=== PATIENT | male | born 1970 | race Caucasian/White ===

== ENCOUNTER 2023-12-15 15:03 | Emergency (ER) | payer OTHER, SELFPAY ==
[2023-12-15 15:08] VITALS: BP 171/121
[2023-12-15 15:27] LABS: % Basophils 0.8 % (0-2); % Eosinophils 1.4 % (0-6); % Immature Granulocytes 0.4 % (0-0.5); % Lymphocytes 23.1 % (20.5-51.1); % Monocytes 9.2 % (1.7-9.3); % Neutrophils 65.1 % (42.2-75.2); Absolute Basophils 0.1 10^3/uL (0-0.2); Absolute Eosinophils 0.1 10^3/uL (0-0.7); Absolute Lymphocytes 1.8 10^3/uL (1.2-3.4); Absolute Monocytes 0.7 10^3/uL (0.1-0.6); Hematocrit 50.8 % (39.0-52.0); Hemoglobin 18.6 g/dL (13.0-18.0); Mean Corp Hgb Conc. 36.6 g/dL (33.0-37.0); Mean Corpuscular Hgb 29.3 pg (27.0-31.0); Mean Platelet Volume 9.8 fL (7.4-10.4); Nucleated Red Blood Cells % 0 % (-); Platelet Count 212 10^3/uL (130-400); Red Blood Cell Count 6.35 10^6/uL (4.70-6.10); Red Cell Dist. Width 13.4 % (11.5-14.5); White Blood Cell Count 7.7 10^3/uL (4.8-10.8)
[2023-12-15 15:38] LABS: ALT (SGPT) 26 U/L (0-50); AST (SGOT) 29 U/L (17-59); Albumin 4.6 g/dl (3.5-5.0); Alkaline Phosphatase 66 U/L (38-126); Blood Urea Nitrogen 13 mg/dl (9-20); Calcium 9.8 mg/dl (8.4-10.2); Carbon Dioxide 24 mmol/L (22-30); Chloride 102 mmol/L (98-107); Glucose 101 mg/dl (70-99); Potassium 4.2 mmol/L (3.5-5.1); Sodium 139 mmol/L (135-145); Total Bilirubin 1.4 mg/dl (0.2-1.3); Total Protein 7.4 g/dl (6.3-8.2); eGFR > 60.00
[2023-12-15 15:39] LABS: Lactic Acid 0.9 mmol/L (0.7-2.0)
[2023-12-15 15:49] VITALS: BMI 39.5
[2023-12-15 15:53] VITALS: BP 165/121
--- NOTE | 2023-12-15 15:54 | ED.GENMED ---
History of Present Illness
General
Chief Complaint: Abdominal Symptoms
Source: patient
Exam Limitations: none
Time Seen by Provider: 12/15/23 15:38
Nursing documentation reviewed up to this point in time: agreed with
History of Present Illness
History of Present Illness:
The patient is a 53-year-old man who was sent from the [facility] for an infected wound overlying a chronic umbilical hernia. The patient reports that he has had this hernia for many years and it never bothers him. He reports that
about a month ago, he scratched it accidentally and open the skin. The patient reports that each day he make sure to keep the wound clean and covered, however, he has noticed over the last few days that the wound looks larger and is now draining
pus. The patient reports he has not showed the hernia to any medical provider until today. The patient reports that he just lost his job a week ago and has his insurance for another 3 weeks so he wanted to get checked out. Patient was referred to
the emergency department after the [facility] was concerned about an infection. Patient denies any nausea and vomiting. He reports he is having no pain at all. He reports that hernia is very soft and is reducible when he
lies flat, especially in the morning before he eats.
Past History
Past History
ED Past Medical History: HTN (Patient reports that he was just diagnosed with high blood pressure today in the [facility] and started on lisinopril)
ED Past Surgical History: Other
Social History
Tobacco: Other
Alcohol: Other
Drug: Other
Personal: Other
Living: other
Employment: Not employed
Family History
Family History: Other
Review of Systems
Review of Systems
Allergies reviewed?: Yes
All Other Systems: ROS reviewed and negative except as documented in HPI and ROS
Constitutional: Reports no symptoms
EENT: Reports no symptoms
Respiratory: Reports no symptoms
Cardiac: Reports no symptoms
ABD/GI: Reports no symptoms
: Reports no symptoms
Musculoskeletal: Reports no symptoms
Skin: Reports other
Neurological: Reports no symptoms
Endocrine: Reports no symptoms
Hematologic/Lymphatic: Reports no symptoms
Psychiatric: Reports no symptoms
Phy Exam
Physical Exam
Physical Exam:
Physical Exam
General: no apparent distress, not acutely ill. Well and comfortable appearing
Neck: supple. no meningeal signs. normal posterior pharynx
Heart: s1/s2 regular rate and rhythm, no murmur. equal radial pulses.
Lungs: no acute respiratory distress. clear bilaterally
Abdomen: normal bowel sounds. not tender. no CVAT. Large hernia in area of umbilical area which is completely soft and nontender. Circular open skin wound overlying umbilical hernia with a small amount of exudate and erythema
Neuro: alert and oriented. no focal neurological deficits
Skin: no rash
Psychiatric: well kept. interactive and cooperative
Extremities: no edema. no calf tenderness. negative homans. good distal pulses
Course
Orders/Labs/Results
Orders:
Orders
12/15/23 15:17
Complete Blood Count/With Diff Urgent
Comprehensive Metabolic Panel Urgent
Lactic Acid Urgent
12/15/23 16:04
Iohexol [Omnipaque] See Protocol PO NOW STA
12/15/23 16:05
CT Abd/pel W Iv And Oral Contr Urgent
Comment:
Reason For Exam: umbilical hernia
12/15/23 16:19
Wound Culture [Wound/Abscess/Other Culture] Urgent
TJ Source: Abdomen
Specimen Description:
Date Specimen was Collected: 12/15/23
Time Specimen was Collected: 16:16
12/15/23 19:55
Sulfamethox./Trimethoprim Ds [Bactrim Ds 800 mg/160 mg] 1 tablet PO NOW STA
Abnormal Lab Results
12/15/23
15:17
RBC 6.35 H 10^6/uL
(4.70-6.10)
Hgb 18.6 H g/dL
(13.0-18.0)
Absolute Monos (auto) 0.7 H 10^3/uL
(0.1-0.6)
Glucose 101 H mg/dl
(70-99)
Total Bilirubin 1.4 H mg/dl
(0.2-1.3)
12/15/23 15:17
12/15/23 15:17
Vital Signs
Initial and Last Documented VS:
Initial Vital Signs
Temp Pulse Resp BP Pulse Ox
99.1 F 99 16 171/121 97
12/15/23 15:08 12/15/23 15:08 12/15/23 15:08 12/15/23 15:08 12/15/23 15:08
Last Documented Vital Signs
Temp Pulse Resp BP Pulse Ox
99.1 F 87 18 171/132 94
12/15/23 15:08 12/15/23 17:47 12/15/23 17:47 12/15/23 17:47 12/15/23 17:47
MDM/Problems Addressed
Differential Diagnosis Includes:
Infected skin wound, fat-containing hernia, bowel containing hernia
MDM/Problems Addressed:
Patient presents with subacute skin wound overlying hernia
Acute Exacerbation and/or Progression of Chronic Illness:
Patient is acutely hypertensive, however, there is no sign of CHF or stroke
*Radiology
Radiology exam reviewed: radiology read reviewed
*Pulse Oximetry
Patient hypoxic: no
*EKG
Interpreted by ED Provider?: NA
*Test Developer Interpretation
Rate: Test Developer- N/A
*Critical Care Note
Total Time (30-74mins, 75-104mins- exclusive of procedures): Not Applicable
Data Reviewed
Source: patient and other (History reviewed from [facility] that was sent via [facility] text)
Patient Management
Discussion with other providers: Other (General surgery, Dr. Nichols)
ED Attending Note
-
Portions of this chart may have been created with voice recognition software.� Occasional wrong word or��sound alike� substitutions may have occurred due to the inherent limitations of voice recognition software.
Discharge Plan
Departure
Patient Disposition: Home (Routine Discharge)
Date of Disposition: 12/15/23
Time of Disposition: 19:53
Patient with high blood pressure during this ER visit?: Yes
Condition: Good
Covid-19: Not Applicable
Discharge Problem:
Chronic wound infection of abdomen
Instructions: Wound Infection, BLOOD PRESSURE
Prescriptions:
New
sulfamethoxazole-trimethoprim [Bactrim DS] 800-160 mg tablet
1 tab PO BID Qty: 14 0RF
Referrals:
Saeed Nichols MD [Active] - (Call Dr. Nichols's office to schedule follow up for as soon as possible)
NONE,* [Family Provider] -
Interventions
Interventions:
*Risk Screen - Suicide Last Done: 12/15/23 15:50
*General Assessment Last Done: 12/15/23 15:50
*Neglect/Abuse Screening Last Done: 12/15/23 15:50
ED- Fall Risk Assessment Last Done: 12/15/23 15:53
*ED COVID-19 Vaccine History Last Done: 12/15/23 15:50
YU-Jxcqxj-Zwsvjhtvlh Assessment Last Done: 12/15/23 15:51
Discharge Date and Time
Print Language: MAURITANIAN
[2023-12-15] MEDS: OMNIPAQUE 50 ML PO (16:14)
[2023-12-15 17:47] VITALS: BP 171/132
[2023-12-15 20:04] VITALS: BP 169/126
[2023-12-15] MEDS: BACTRIM DS 800 MG/160 MG 1 TABLET PO (20:04)
== END 2023-12-15 20:07 | disposition home or self-care (01) ==
LOC: EMR 15:03
PROVIDERS: Emergency Medicine; EMERGENCY PHYSICIAN Emergency Medicine
DX: L08.9 Local infection of the skin and subcutaneous tissue, unspecified (principal); K42.9 Umbilical hernia without obstruction or gangrene; I10 Essential (primary) hypertension
CPT/HCPCS: 99284; 74177; 80053; 83605; 85025; 87070; 87205; Q9967

== ENCOUNTER 2024-05-31 16:33 | Inpatient (IN) | payer OTHER, SELFPAY ==
[2024-05-31] VITALS (44 sets, daily range): BP systolic 70–146; BP diastolic 33–75; BMI 40.4
--- NOTE | 2024-05-31 14:36 | ED.GENMED ---
History of Present Illness
General
Chief Complaint: Abdominal Symptoms
Source: patient
Time Seen by Provider: 05/31/24 14:19
History of Present Illness
History of Present Illness:
53-year-old male presents to the emergency room from family doctor's office where he was found to be tachycardic and hypotensive. Patient came to the office to have a wound on his abdomen evaluated. The patient has had a chronic area of erythema
at using on the skin overlying a very large umbilical hernia. Patient states this area is been bothering him for months because of insurance issues he has not had it adequately cared for. He was seen in the emergency room in December at which
point he had a CAT scan which showed a large umbilical hernia which contained a loop of transverse colon but no evidence of obstruction or strangulation at that time. Patient was prescribed Bactrim and discharged for outpatient follow-up. Patient
notes over the past week or so he has been feeling dizzy, lightheaded. He has had poor appetite and poor oral intake. He is aware that the wound on his abdomen is impressive but denies significant pain there. He denies any abdominal pain. He has
had some nausea vomiting but again no abdominal pain. He has had some diarrhea.
Past History
Past History
ED Past Medical History: HTN (Patient reports that he was just diagnosed with high blood pressure today in the family [facility] clinic and started on lisinopril)
ED Past Surgical History: Other
Social History
Tobacco: Other
Alcohol: Other
Drug: Other
Personal: Other
Living: other
Employment: Not employed
Family History
Family History: Other
Phy Exam
Physical Exam
Physical Exam:
General: Awake, Alert, Oriented X3. No acute distress.
Vitals: unremarkable
Head: Atraumatic
Eyes: Pupils equal, EOMI
Throat: Airway intact, no exudates
Neck: Trachea midline
Lungs: Clear and equal b/l
Heart: Regular rate, no murmurs
Abd: Soft, large pendulous abdominal hernia with the overlying skin being quite erythematous. The erythema even extends onto the normal abdominal wall. The dependent portion of the skin containing the hernia has a large area of necrosis with some
white eschar and black necrotic material. The wounds measure approximately 15 cm x 9 cm, No pulsatile mass
Neuro: Nonfocal
Skin: Warm, dry, no rash
Extremities: pulses equal b/l, no edema
Sepsis
Sepsis Screening
Sepsis Assessment: Septic Shock
Sepsis Screening: Lactate >2mmol/L, Hypotension, ARF-Creatinine >2.0, Sustained Hypotension-SBP <90,MAP<65, or SBP decrease 40mmHg or more and Vasopressor support required
Sepsis Screen
Sepsis Screen: Septic Shock
Date: 05/31/24
Time: 15:00
Course
Orders/Labs/Results
Orders:
Orders
05/31/24 14:21
EKG [Electrocardiogram (*1)] Urgent
Reason for Study: Vertigo / Dizzy
EKG- Treatment ONCE
05/31/24 14:33
Cardiac Monitoring- Treatment ONCE
0.9% Sodium Chloride 1000 ml [Nss] 4,400 ml IV NOW STA
Acetaminophen [Tylenol] 650 mg PO NOW STA
Piperacillin/Tazo 4.5 Gram [Zosyn] 4.5 gram in 100 ml IV NOW
05/31/24 14:39
Vancomycin [Vancocin] 2,000 mg 0.9% Sodium Chloride 500 ml [Nss] 500 ml IV NOW
05/31/24 14:45
Complete Blood Count/With Diff Urgent
Comprehensive Metabolic Panel Urgent
Lactic Acid Q4H
Comment: CANCEL 2nd LACTIC ACID IF 1st LACTIC ACID IS LESS THAN 2
Urinalysis Reflex To Culture Urgent
Date Specimen was Collected: 05/31/24
Time Specimen was Collected: 14:36
Urine Microscopic Reflex Cult Urgent
Blood Culture Q30M
TJ Source: Blood/Venous
Specimen Description:
Blood Culture Q30M
TJ Source: Blood/Venous
Specimen Description:
Urine Culture Urgent
TJ Source: U
Specimen Description:
Date Specimen was Collected: 05/31/24
Time Specimen was Collected: 14:36
05/31/24 15:03
Wound Culture [Wound/Abscess/Other Culture] Urgent
TJ Source: Abdomen
Specimen Description:
Date Specimen was Collected: 05/31/24
Time Specimen was Collected: 14:55
05/31/24 15:33
Iohexol [Omnipaque] See Protocol PO NOW STA
05/31/24 15:36
[place] Placement- Treatment ONCE
Reason for insertion: I&O's Critical Care
05/31/24 15:37
CT Abd/pel Without Iv Or Oral Urgent
Comment:
Reason For Exam: renal failure, lg hernia with necrotic skin overly
05/31/24 16:20
Admit/Transfer Patient As Directed
Co-Sign Provider:
Level of Care: Inpatient admission
Assign to:: ICU
Physician / Group: [facility]son
Diagnosis: cellulitis/ hernia strangulation
Reason for Hospitalization: cellulitis/ hernia strangulation
Expected length of stay greater than two midnights?: Yes
ELOS- Estimated Length of Stay in days: 2
I certify the patient meets the requirements for IP care: Yes
NORepinephrine 4 MG/250 ML [Levophed] 4 mg in 250 ml .ROUTE .STK-MED
05/31/24 16:21
PRN Pain Medication Management As Directed
May give lesser potent ordered pain med per pt: Yes
preference::
Protocol:: Medication orders for pain may be administered in a
manner that supports deferring to patient preference
when the pt is:
- Requesting an ordered lesser potent pain medication.
Least to most potent pain medications are defined
as: acetaminophen < NSAID < tramadol < opioids
(morphine, oxycodone, hydromorphone).
- Requesting a lesser dose of the same medication IF
ORDERED.
- Requesting a less intrusive route of administration
if both routes are prescribed by the provider (PO <
IV).
05/31/24 16:22
Code Status As Directed
Resuscitation Status: Full Code
05/31/24 16:30
NORepinephrine 4 MG/250 ML [Levophed] 4 mg in 250 ml IV PER PROTOCOL
Initial dose in mcg/min, then titrate:: 4
Titrate to keep:: MAP > 65 mmHg
Titrate by mcg/min:: 1-2 mcg/min
Frequency of titrations (minutes):: 5
Maximum dose in ICU in mcg/min:: 30
Maximum dose in IMU in mcg/min:: 8
Maximum dose in IVU in mcg/min:: 4
Begin to taper infusion when:: Remained at goal for 4hrs
Taper by mcg/min:: 1-2 mcg/min
Frequency of taper (minutes) if patient maintains goal:: 30
Taper to off?: Yes
If infusion off & no longer maintaining goal:: Contact Provider
05/31/24 16:55
0.9% Sodium Chloride 1000 ml [Nss] 1,000 ml IV 100 mls/hr
05/31/24 18:23
Lactic Acid Q4H
Comment: CANCEL 2nd LACTIC ACID IF 1st LACTIC ACID IS LESS THAN 2
Abnormal Lab Results
05/31/24
14:45
WBC 22.3 H 10^3/uL
(4.8-10.8)
Plt Count 125 L 10^3/uL
(130-400)
MPV 11.0 H fL
(7.4-10.4)
Abs Immat Gran (auto) 0.8 H 10^3/uL
(0-0.05)
Absolute Neuts (auto) 20.0 H 10^3/uL
(1.4-6.5)
Absolute Lymphs (auto) 0.3 L 10^3/uL
(1.2-3.4)
Absolute Monos (auto) 1.1 H 10^3/uL
(0.1-0.6)
Immature Gran % 3.5 H %
(0-0.5)
Neutrophils % 89.7 H %
(42.2-75.2)
Lymphocytes % 1.1 L %
(20.5-51.1)
Sodium 131 L mmol/L
(135-145)
Chloride 97 L mmol/L
(98-107)
Carbon Dioxide 20 L mmol/L
(22-30)
BUN 65 H mg/dl
(9-20)
Creatinine 6.7 H* mg/dL
(0.7-1.3)
Glucose 187 H mg/dl
(70-99)
Lactic Acid 3.4 H mmol/L
(0.7-2.0)
Calcium 7.4 L mg/dl
(8.4-10.2)
Total Bilirubin 2.1 H mg/dl
(0.2-1.3)
ALT 63 H U/L
(0-50)
Total Protein 4.9 L g/dl
(6.3-8.2)
Albumin 2.5 L g/dl
(3.5-5.0)
Ur Occult Blood Reflex 2+ A
(Negative)
Urine Nitrite (Reflex) Positive A
(Negative)
Urine Bilirubin 1+ A
(Negative)
Leukocyte Esterase Rfl 2+ A
(Negative)
Urine RBC 3-6 A /HPF
(0-2)
Urine WBC (Reflex) 11-15 A /HPF
(0-5)
Urine Bacteria (Reflex) Many A
(Negative)
Urine Glucose 1+ A
(Negative)
Urine Albumin (Reflex) 2+ A
(Neg - Trace)
05/31/24 14:45
05/31/24 14:45
Vital Signs
Initial and Last Documented VS:
Initial Vital Signs
Pulse Resp Pulse Ox
111 14 98
05/31/24 14:23 05/31/24 14:23 05/31/24 14:23
Last Documented Vital Signs
Temp Pulse Resp BP Pulse Ox
97.6 F 108 20 94/59 95
05/31/24 18:30 05/31/24 18:45 05/31/24 18:30 05/31/24 18:45 05/31/24 18:45
MDM/Problems Addressed
Differential Diagnosis Includes:
Sepsis from scrotal cellulitis, sepsis from pneumonia, sepsis from urinary tract infection
MDM/Problems Addressed:
Patient presents with hypotension, tachycardia. Interestingly he is not febrile. Physical exam shows a very large umbilical hernia which is pendulous. The tissue on the underside of the hernia is chronic appearing. Erythema extends his abdominal
wall. Suspicion that this is the source of infection though other sources explored. Patient's urine does have an elevated number of white blood cells though not so many that this is clearly the source of infection. CT of the abdomen shows no
ureteral obstruction or hydronephrosis. There is stranding about the kidneys bilaterally which may support the diagnosis of pyelonephritis. Patient also found to be in acute renal failure. He has had poor oral intake and does look dry so this may
certainly be prerenal in nature. A [place] was placed to carefully document I+O's. Broad-spectrum antibiotics administered. Surgical consultation obtained.
*Radiology
Radiology exam reviewed: radiology read reviewed
*Pulse Oximetry
Patient hypoxic: no
*EKG
Interpretation: abnormal
Heart Rate: 112
Rate: tachycardiac
Rhythm: sinus tachycardia
[place]: normal axis
Interval: normal interval
QRS Pattern: normal QRS
Ischemia: no ischemia
*Event Executive Interpretation
Rate: tachycardiac
Interpretation: abnormal
Heart Rate: 112
Rhythm: sinus tachycardia
*Critical Care Note
Total Time (30-74mins, 75-104mins- exclusive of procedures): Not Applicable
ED Attending Note
-
Portions of this chart may have been created with voice recognition software.� Occasional wrong word or��sound alike� substitutions may have occurred due to the inherent limitations of voice recognition software.
Discharge Plan
Departure
Patient Disposition: Admit
Date of Disposition: 05/31/24
Time of Disposition: 15:43
Presentation/result/management discussed w/ accepting MD/DO: Hospitalist
Condition: Serious
Discharge Problem:
Sepsis, Umbilical hernia, Necrotizing cellulitis
Interventions
Interventions:
*Risk Screen - Suicide Last Done: 05/31/24 14:27
*General Assessment Last Done: 05/31/24 14:27
*Neglect/Abuse Screening Last Done: 05/31/24 14:27
ED- Fall Risk Assessment Last Done: 05/31/24 14:27
*ED COVID-19 Vaccine History Last Done: 05/31/24 14:27
OM-Jmqciy-Vmufcrmryw Assessment Last Done: 05/31/24 14:27
[2024-05-31] MEDS: ZOSYN 100 IV (14:39)
[2024-05-31] MEDS: TYLENOL 650 MG PO (14:39)
[2024-05-31] MEDS: NSS 4400 ML IV (14:44)
[2024-05-31] MEDS: VANCOCIN 540 MG IV (14:48)
[2024-05-31 15:06] LABS: Hematocrit 44.1 % (39.0-52.0); Hemoglobin 15.4 g/dL (13.0-18.0); Mean Corp Hgb Conc. 34.9 g/dL (33.0-37.0); Mean Corpuscular Hgb 29.8 pg (27.0-31.0); Mean Corpuscular Volume 85.5 fL (80.0-94.0); Platelet Count 125 10^3/uL (130-400); Red Blood Cell Count 5.16 10^6/uL (4.70-6.10); Red Cell Dist. Width 13.1 % (11.5-14.5); White Blood Cell Count 22.3 10^3/uL (4.8-10.8)
[2024-05-31 15:10] LABS: Lactic Acid 3.4 mmol/L (0.7-2.0)
[2024-05-31 15:20] LABS: ALT (SGPT) 63 U/L (0-50); AST (SGOT) 31 U/L (17-59); Albumin 2.5 g/dl (3.5-5.0); Alkaline Phosphatase 59 U/L (38-126); Blood Urea Nitrogen 65 mg/dl (9-20); Calcium 7.4 mg/dl (8.4-10.2); Carbon Dioxide 20 mmol/L (22-30); Chloride 97 mmol/L (98-107); Estimated Creatinine Clearance 20 ml/min; Glucose 187 mg/dl (70-99); Potassium 3.9 mmol/L (3.5-5.1); Sodium 131 mmol/L (135-145); Total Bilirubin 2.1 mg/dl (0.2-1.3); Total Protein 4.9 g/dl (6.3-8.2); eGFR 9.24
[2024-05-31 15:33] LABS: % Basophils 0.4 % (0-2); % Eosinophils 0.4 % (0-6); % Immature Granulocytes 3.5 % (0-0.5); % Lymphocytes 1.1 % (20.5-51.1); % Monocytes 4.9 % (1.7-9.3); % Neutrophils 89.7 % (42.2-75.2); Absolute Basophils 0.1 10^3/uL (0-0.2); Absolute Eosinophils 0.1 10^3/uL (0-0.7); Absolute Immature Granulocytes 0.8 10^3/uL (0-0.05); Absolute Lymphocytes 0.3 10^3/uL (1.2-3.4); Absolute Monocytes 1.1 10^3/uL (0.1-0.6); Nucleated Red Blood Cells % 0 % (-)
[2024-05-31 16:02] LABS: Urine Albumin 2+ (Neg - Trace); Urine Bilirubin 1+ (Negative); Urine Character Clear (Clear); Urine Color Yellow; Urine Glucose 1+ (Negative); Urine Ketone Negative (Negative); Urine Leukocyte 2+ (Negative); Urine Nitrite Positive (Negative); Urine Occult Blood 2+ (Negative); Urine Specific Gravity 1.025 (<1.030); Urine Urobilinogen 1+ (Neg - 1+)
[2024-05-31 16:11] LABS: Urine Squamous Cell 0-2 /LPF (Few)
[2024-05-31 16:12] LABS: Urine Amorphous Seen
[2024-05-31 16:13] LABS: Urine Bacteria Many (Negative)
--- NOTE | 2024-05-31 16:15 | EDRN ---
hospitalist currently at the pts bedside
--- NOTE | 2024-05-31 16:27 | HPS.HSE ---
Family Physician
-
Family Physician: Yosef Foss MD, Resid
Chief Complaint
-
weakness
History of Present Illness
53-year-old male past medical history of hypertension presenting from doctor's office with tachycardia and hypotension. He went to see his primary care physician for wound on his abdomen. He has a chronic area of redness on the skin overlying a
very large umbilical hernia. This has been bothering him for months but due to insurance issues he has not been able to seek care. He went to the emergency room in December and had a CAT scan which showed large umbilical hernia which contained a
loop of transverse colon with no evidence of obstruction or triangulation at that time. He was prescribed Bactrim and discharged for outpatient follow-up. In the past week he has been having dizziness and lightheadedness. He has had poor oral
intake. He denies any pain at the site of his hernia. It is not getting bigger. He has redness and drainage of the skin in the hernia. Denies abdominal pain. He denies nausea or vomiting. He has been having loose stool but denies diarrhea or
constipation.
He does not smoke or drink alcohol.
Medical History
Past Medical History
Past Medical History: Reports Other (hypertension)
Past Surgical History: Reports None
Social History
Tobacco: Non-smoker
Alcohol: None
Drug: None
Family History
Family History: Not pertinent
Allergies / Home Medications
Allergies reflects when Allergies were last updated in [facility].
Home Medications with original date entered in [facility]
Allergy/Medication List:
Allergies
Allergy/AdvReac Type Severity Reaction Status Date / Time
No Known Allergies Allergy Unverified 12/15/23 15:07
Home Medications
lisinopril 10 mg tablet 10 mg PO DAILY 05/31/24
Review of Systems
-
History Source: Patient
A 12 point ROS was completed and negative except as noted: Yes
Constitutional: Reports No Symptoms
EENT: Reports No Symptoms
Respiratory: Reports No Symptoms
Cardiac: Reports No Symptoms
Abdomen/GI: Reports See HPI
: Reports No Symptoms
Musculoskeletal: Reports No Symptoms
Skin: Reports No Symptoms
Neurological: Reports No Symptoms
Endocrine: Reports No Symptoms
Hematologic/Lymphatic: Reports No Symptoms
Psych: Reports No Symptoms
Physical Exam
Vital Signs
Vital Signs
Temp Pulse Resp BP Pulse Ox
98.5 F 103 19 95/55 98
05/31/24 14:27 05/31/24 15:45 05/31/24 15:45 05/31/24 15:44 05/31/24 15:44
Physical Exam
General: Well Developed, Well Nourished and No Apparent Distress
HEENT: NormoCephalic, Moist mucous membranes and Atraumatic
Respiratory: Clear
Cardiac: S1/S2 and Regular Rhythm; No Murmur or Rub
GI: Soft, Non Tender, Non Distended and Normal Bowel Sounds; No Organomegaly
Rectal: Deferred by Provider
Musculoskeletal: No Clubbing, No Cyanosis and No Edema
Skin: No Rash
Neuro: Nonfocal/grossly intact
Laboratory Results
-
05/31/24 14:45
05/31/24 14:45
Laboratory Results
Lactic Acid 3.4 mmol/L (0.7-2.0) H 05/31/24 14:45
Total Bilirubin 2.1 mg/dl (0.2-1.3) H 05/31/24 14:45
AST 31 U/L (17-59) 05/31/24 14:45
ALT 63 U/L (0-50) H 05/31/24 14:45
Alkaline Phosphatase 59 U/L (38-126) 05/31/24 14:45
Data Reviewed
-
Lab Data: Labs Reviewed by me
Old Records: Reviewed
Impression/Plan
-
IMPRESSION:
PLAN:
# Sepsis (leukocytosis, hypotension, leukocytosis) possibly secondary to cellulitis overlying umbilical hernia versus/rule out strangulation of umbilical hernia
-N.p.o
-IV fluids
-Blood cultures, wound culture
-CT abdomen pelvis pending
-Zosyn/vancomycin
-Levophed likely needed
-General Surgery consulted
# Acute kidney injury likely due to hypovolemia
-IV fluids
-[place] catheter placed
Essential hypertension
-Hold lisinopril
Full code
DVT prophylaxis�heparin
N.p.o.
[2024-05-31] MEDS: LEVOPHED 250 IV ×2 (16:34→20:42)
--- NOTE | 2024-05-31 16:39 | CON.GS ---
Medical History
-
Chief Complaint: Altered mental status and not feeling well
History of Present Illness:
Patient is a 53 yo M with a PMH of morbid obesity, HTN, hyperbilirubinemia, and known umbilical hernia with chronic wound at umbilical skin who presents with altered mental status and generalized not feeling well. Mr. Posada states that he has had
a known umbilical hernia for years now. Of recent he denies any significantly worse pain or increase in size of his hernia. No significant nausea or vomiting. He is recently passed flatus to move his bowels. He has a known issue with skin
breakdown and intermittent drainage at his umbilical wound. This has been occurring for months now. He has noticed some increase redness and drainage about his wound. Unclear on if he has had any issues with dysuria. He does note increased
difficulties with passing urine. No fevers or chills. Of note, he has been noted to have hyperbilirubinemia and mild elevation in his LFTs. He does not carry a known diagnosis of cirrhosis.
Past Medical History
Past Medical History: HTN and Other (Morbid obesity, fatty liver disease with possible cirrhosis)
Past Surgical History: None
Social History
Tobacco: Non-Smoker
Alcohol: Occasional
Drug: None
Family History
Family History: Reviewed & Not Pertinent
Allergies / Home Medications
Allergy/AdvReac Type Severity Reaction Status Date / Time
No Known Allergies Allergy Unverified 12/15/23 15:07
�Medication �Instructions �Recorded �Confirmed �Type
lisinopril 10 mg tablet 10 mg PO DAILY 05/31/24 05/31/24 History
Review of Systems
-
A 10 point review of systems was completed, and was negative except as per HPI.
Physical Exam
Vital Signs
Temp Pulse Resp BP Pulse Ox
98.5 F 103 19 95/55 98
05/31/24 14:27 05/31/24 15:45 05/31/24 15:45 05/31/24 15:44 05/31/24 15:44
05/30/24 05/31/24 06/01/24
06:59 06:59 06:59
Actual Weight 146.7 kg
Body Mass Index (BMI) 40.4
Lab Results
05/31/24 14:45
05/31/24 14:45
WBC 22.3 10^3/uL (4.8-10.8) H 05/31/24 14:45
Hgb 15.4 g/dL (13.0-18.0) 05/31/24 14:45
Hct 44.1 % (39.0-52.0) 05/31/24 14:45
Plt Count 125 10^3/uL (130-400) L 05/31/24 14:45
Abs Immat Gran (auto) 0.8 10^3/uL (0-0.05) H 05/31/24 14:45
Neutrophils % 89.7 % (42.2-75.2) H 05/31/24 14:45
Physical Exam
General: Well Developed, Well Nourished, No Apparent Distress and Other (Depressed mentation)
HEENT: Normocephalic and Scleral Icterus
Respiratory: Non Labored Respirations
Cardiac: Regular Rhythm
GI: Soft, Non Tender, Non Distended, Obese and Other (Massive umbilical hernia with edema, erythema, and skin breakdown with associated necrosis, soft, partially reducible, no tenderness with palpation or exam, mild weeping drainage, no bullae or
crepitus)
Skin: Warm and Dry
Neuro: Nonfocal/Grossly Intact
Data Reviewed
-
CT Scan: Image Personally Visualized and interpreted and Report Reviewed by me
Labs: Labs Reviewed by me
Old Records: Reviewed
Assessment / Plan
-
Patient is a 53 yo M p/w sepsis
Most likely urosepsis given his markedly elevated renal function, positive UA, and degree of sepsis. Recommend admission to the ICU, aggressive hydration, trend lactate, and IV antibiotic treatment. Will need close monitoring of his electrolytes
and renal function.
Less likely that his umbilical hernia is driving his sepsis given the chronicity of presentation, partially reducible nature of his hernia, and lack of pain or changes in his overall symptoms. His umbilical hernia is quite large and does have skin
necrosis and breakdown secondary to chronic skin thinning, tension, and decreased blood flow to the tip of the hernia. This hernia will need to be addressed, timing TBD. Proceeding with operative intervention at this time exposes him to
unnecessary risks given his electrolyte abnormalities and degree of renal failure with anesthesia. Based on his increased risk for wound complications and infection as a relates to his umbilical hernia he will likely need to have a primary suture
repair. Based on his current BMI he is at increased risk for recurrence and will need counseling on importance of weight loss and monitoring this area/follow-up.
Would trend/monitor hyperbilirubinemia and LFTs. If worsens may need GI consultation. Outpatient workup for hyperbilirubinemia pending (hepatitis). Current thrombocytopenia most likely reactive given previously normal, though could represent
underlying liver disease.
-- No plans to address umbilical hernia at this time, timing TBD based on recovery from urosepsis
-- Admission to ICU
-- Aggressive hydration, trend lactate and CMP
-- Abx: Zosyn
-- Will follow
--- NOTE | 2024-05-31 17:45 | EDRN ---
this RN called the receiving nurse in IMU to give verbal report, they will call this RN back
--- NOTE | 2024-05-31 18:06 | EDRN ---
this RN notified Dr. Ledesma regarding the pt needing to go to ICU due to being on 14mcg of Levophed, this RN also notified the bead supervisor
[2024-05-31] MEDS: NSS 1000 IV ×2 (18:25→23:55)
[2024-05-31 18:45] LABS: Lactic Acid 1.7 mmol/L (0.7-2.0)
--- NOTE | 2024-05-31 20:31 | W.PN.SEPSIS ---
Sepsis
Vital Signs
Temp Pulse Resp BP Pulse Ox
97.6 F 111 20 100/71 92
05/31/24 18:30 05/31/24 20:00 05/31/24 18:30 05/31/24 19:45 05/31/24 20:00
Physical Exam
Physical Exam:
A focused exam was performed after fluid resuscitation.
Capillary Refill
Bilateral Upper Extremity:
Sinan Time: Less than 3 sec
Bilateral Lower Extremity:
Sinan Time: Less than 3 sec
Pulse Evaluation
Bilateral Radial:
Pulse Evaluation: Present
Bilateral Dorsalis Pedis:
Pulse Evaluation: Present
--- NOTE | 2024-05-31 21:00 | PTCARENOTE ---
pt arrived from ED on stretcher, able to move over into bed independently, parents at bedside, oriented to room, SHAHRAM gallardo noted with drainage, [employer] at bedside, Levo gtt infusing per MD orders, call barry in reach
[2024-05-31] MEDS: ZOSYN 50 IV (21:45)
[2024-05-31] MEDS: HEPARIN 5000 UNITS SC (23:53)
[2024-06-01] VITALS (79 sets, daily range): BP systolic 80–151; BP diastolic 46–136; BMI 38.9
--- NOTE | 2024-06-01 | PTCARENOTE ---
pt resting in bed comfortably, denies pain and SOB, weaning down on levo gtt see worklist
[2024-06-01] MEDS: CORDARONE 103 MG IV (03:03)
[2024-06-01] MEDS: CORDARONE 518 MG IV (03:47)
[2024-06-01] MEDS: ZOSYN 50 IV ×4 (03:53→21:11)
[2024-06-01 03:57] LABS: % Basophils 0.5 % (0-2); % Eosinophils 1.2 % (0-6); % Immature Granulocytes 0.8 % (0-0.5); % Lymphocytes 2.8 % (20.5-51.1); % Monocytes 4.2 % (1.7-9.3); % Neutrophils 90.5 % (42.2-75.2); Absolute Basophils 0.1 10^3/uL (0-0.2); Absolute Eosinophils 0.2 10^3/uL (0-0.7); Absolute Immature Granulocytes 0.2 10^3/uL (0-0.05); Absolute Lymphocytes 0.6 10^3/uL (1.2-3.4); Absolute Monocytes 0.8 10^3/uL (0.1-0.6); Absolute Neutrophils 17.9 10^3/uL (1.4-6.5); Hematocrit 42.5 % (39.0-52.0); Hemoglobin 15.3 g/dL (13.0-18.0); Mean Corpuscular Hgb 29.7 pg (27.0-31.0); Mean Corpuscular Volume 82.4 fL (80.0-94.0); Mean Platelet Volume 11.5 fL (7.4-10.4); Nucleated Red Blood Cells % 0 % (-); Platelet Count 118 10^3/uL (130-400); Red Blood Cell Count 5.16 10^6/uL (4.70-6.10); Red Cell Dist. Width 13.2 % (11.5-14.5); White Blood Cell Count 19.7 10^3/uL (4.8-10.8)
[2024-06-01 04:01] LABS: APTT 33.4 Sec (23.4-35.0); INR 1.39; PT 17.3 Sec (11.4-14.6)
--- NOTE | 2024-06-01 04:24 | PTCARENOTE ---
pt converted into AFIB around 229, HIMS MANAGER made aware, pt Asymptomatic, started on AMIO gtt see JUN, call barry in reach
[2024-06-01 04:26] LABS: ALT (SGPT) 55 U/L (0-50); AST (SGOT) 26 U/L (17-59); Albumin 2.3 g/dl (3.5-5.0); Alkaline Phosphatase 74 U/L (38-126); Blood Urea Nitrogen 65 mg/dl (9-20); Calcium 7.2 mg/dl (8.4-10.2); Carbon Dioxide 14 mmol/L (22-30); Chloride 106 mmol/L (98-107); Estimated Creatinine Clearance 27 ml/min; Glucose 149 mg/dl (70-99); Phosphorus 3.4 mg/dl (2.5-4.5); Potassium 3.4 mmol/L (3.5-5.1); Sodium 135 mmol/L (135-145); Total Bilirubin 1.6 mg/dl (0.2-1.3); Total Protein 4.6 g/dl (6.3-8.2); eGFR 13.45
[2024-06-01 04:35] LABS: Vancomycin Random 11.4 ug/ml
[2024-06-01] MEDS: SODIUM BICARBONATE 1150 MEQ IV ×2 (05:02→16:07)
[2024-06-01] MEDS: SODIUM BICARBONATE 50 MEQ IV (05:06)
[2024-06-01] MEDS: KCL 270 MEQ IV ×2 (06:18→18:37)
--- NOTE | 2024-06-01 07:46 | PTCARENOTE ---
pt received from previous rn- aox4, on 2LNC, afib on monitor. amio, levo, and bicarb gtts all continue as per order. all peripheral ints c/d/i and wnl. pt with no complaints at this time. educated about plan of care- verbalized understanding. all
safety precautions in place, call barry within reach, pt turns and repositions self. umbilical hernia with xeroform and pad for drainage. herron draining yellow urine.
[2024-06-01] MEDS: NEO-SYNEPHRINE 250 IV (08:54)
[2024-06-01] MEDS: HEPARIN SC (09:04)
--- NOTE | 2024-06-01 09:28 | PHA.VAN.IN ---
Addendum entered and electronically signed by Keyla Vera, [facility] 06/01/24 17:37:
Random level drawn ~4.5 hours after completion of vanc 1500mg dose = 17.4
Will provide an additional vanc 750mg IV x1 and continue with random level 06/02 AM
Addendum entered and electronically signed by Margret Phelps, [facility] 06/01/24 13:22:
Will obtain random level this evening to ensure patient maintaining levels
Original Note:
Assessment
- Assessment
Renal Function: Appears elevated from baseline (SCR 6.7 --> 4.9 from admission - only prior SCR 1.1 12/15/23)
Concomitant Antimicrobials: piperacillin/tazobactam
Plan
- Plan
Initial / Loading Dose: 2000mg - 05/31 14:48
Maintenance Regimen: dosing by level
Monitoring: random 06/02 0600
Laboratory Tests
06/01/24
03:30
Random Vancomycin 11.4
Level drawn ~12.5H after 2g loading dose
Patient unlikely to follow population PK with weight and CONSTANCE
Will re-dose today with 1500mg (~10 mg/kg)
Pharmacokinetics Vancomycin I
- -
Patient Age: 53
Patient Sex: Male
Vancomycin Day #: 1
Indication: Skin And Soft Tissue
Requesting Provider: Dr. Ledesma
Pertinent Antimicrobial Allergies:
NKDA
Height / Weight:
Height 6 ft 3 in
Actual Weight 141 kg
Pertinent Past Medical History: BMI ~39
- Vital Signs / Lab Results
Temp Pulse Resp BP Pulse Ox
97.8 F 131 22 90/66 91
06/01/24 07:44 06/01/24 06:00 06/01/24 06:00 06/01/24 06:00 06/01/24 07:44
Lab Results - Hematology
05/31/24 06/01/24
14:45 03:30
WBC 22.3 H 19.7 H
Lab Results - Chemistry
05/31/24 06/01/24
14:45 03:30
BUN 65 H 65 H
Creatinine 6.7 H* 4.9 H*
Estimated Creat Clear 20 27
Albumin 2.5 L 2.3 L
05/31/24 05/31/24
14:45 18:23
Lactic Acid 3.4 H 1.7
Lab Results - Urine
05/31/24
14:45
Urine Nitrite (Reflex) Positive A
Leukocyte Esterase Rfl 2+ A
Urine WBC (Reflex) 11-15 A
Ur Squamous Epith Cells 0-2
Urine Bacteria (Reflex) Many A
Microbiology Results
05/31/24 14:45 Blood Culture - Preliminary
Blood/Venous Positive culture in progress
Gram Stain - Preliminary
05/31/24 15:03 Gram Stain - Preliminary
Abdomen
--- NOTE | 2024-06-01 10:18 | PTCARENOTE ---
Dr. Shelton and Dr. Vallejo aware of pts heart rate- no further orders at this time. poc discussed in rounds. cards consulted. pt aware of plan of care, pt changed from levo to roxann.
[2024-06-01] MEDS: VANCOCIN 530 MG IV (10:23)
--- NOTE | 2024-06-01 10:49 | CON.CAR ---
Addendum entered and electronically signed by Rylan More MD 06/01/24 12:49:
I saw and examined the patient.
The PAEDIATRIC SURGEON's note was reviewed and I agree with the note.
Comment:
53 y/o male with umbilical hernia, obesity, and HTN who presents with septic shock and GPC bacteremia from abdominal hernia wound, requiring vasopressors. Cardiology is consulted from afib w RVR which developed at 3AM today. Patient is likely
asymptomatic from afib though difficult to tell with everything going on. On exam he is in mild distress from pain, cardiovascular exam with irregular rate and rhythm, no murmurs, lungs clear, and no lower extremity edema. For his rapid atrial
fibrillation, he has been started on IV amiodarone infusion which we should continue. We are unable to use BB's or CCB's due to hypotension requiring pressors, and no role for DCCV as I suspect afib will recur with ongoing sepsis. Heart rate goal
of less than 130. [id number] 1. No anticoagulation for now given low [id number] and possible need for upcoming surgical intervention of his hernia. Update echocardiogram tomorrow once his rates have improved. Hold antihypertensives for
sepsis. We will continue to follow along. Recommendations discussed with primary team via TT.
Original Note:
Consultation
Consultation Request
Date/Time Consultation Requested: 06/01/24 0959
Date/Time Consultation Performed: 06/01/24 1052
Requesting Provider: Dr. Shelton
Performing Provider: Christiane NORIEGA for Dr. More
Reason for Consultation: AFIB with RVR
Medical History
-
Chief Complaint: abdominal wound
History of Present Illness:
53 y/o male with umbilical hernia, obesity, and HTN who went to his PCP for an abdominal wound that became darker and pus was noted and was seen to be tachycardic and hypotensive, so was sent to ER. He also has reported dizziness, poor appetite,
hiccups, decreased urination, weakness, brain fog. He is seen to have leukocytosis, CONSTANCE with creatinine 6.7. He is s/p 6.5 L fluid. Creatinine improving. On bicarb. His blood cultures are pending, but preliminary gram positive cocci in chains. UA
abnormal, UC pending. He is getting antibiotics. BP is low in setting of septic shock and he is requiring pressor management. We are consulted for AFIB with RVR (which started around 3 AM) and IV amiodarone has been initiated. He does not feel the
afib.
Past Medical History
Past Medical History: HTN and Other (obesity, umbilical hernia)
Social History
Tobacco: Non-Smoker
Alcohol: Occasional
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
Family History
Family History: Reviewed & Not Pertinent
Allergies / Home Medications
Allergy/AdvReac Type Severity Reaction Status Date / Time
No Known Allergies Allergy Unverified 12/15/23 15:07
�Medication �Instructions �Recorded �Confirmed �Type
lisinopril 10 mg tablet 10 mg PO DAILY Blood Pressure 05/31/24 05/31/24 History
Review of Systems
-
History Source: Patient
All other systems: Negative unless noted (as above)
Constitutional: Other (weakness, poor appetite, brain fog, hiccups)
Skin: Other (wound)
Neurological: Dizzy
Physical Exam
Vital Signs
Temp Pulse Resp BP Pulse Ox
97.8 F 136 26 86/75 93
06/01/24 07:44 06/01/24 10:30 06/01/24 10:30 06/01/24 10:30 06/01/24 10:30
Lab Results
06/01/24 03:30
06/01/24 03:30
Physical Exam
General: Well Developed and No Apparent Distress
HEENT: Normocephalic and Anicteric
Respiratory: Clear and Non Labored Respirations
Cardiac: Irregular Rhythm
Musculoskeletal: No Edema
Skin: Other (wound to abdominal, large hernia)
Neuro: AO x 3
Psych: Calm
Impression / Plan
-
Septic shock:
-this diagnosis is threat to life
-on pressors (phenylephrine) and IV abx. IVF received.
-urine and blood cultures pending.
-ID consulted
-Umbilical hernia-surgery consulted and will need to be addressed, but not yet
AFIB with RVR:
-in setting of acute illness
-continue IV amiodarone, which requires intensive monitoring
-[id number] score 1 for HTN. We do not need to add AC at this time.
-TSH pending
-Echo when HR better
HTN:
-ACEI stopped for hypotension, CONSTANCE in setting of acute illness
CONSTANCE:
-significant
-improving
Data Reviewed
-
EKG: Tracing Personally Visualized and interpreted (AFIB with RVR 139 BPM)
Radiology: Report Reviewed by me (CXR: Hypoaerated lungs without consolidation.)
CT Scan: Report Reviewed by me (Redemonstration of umbilical hernia with abdominal wall defect measuring approximately 4.2 x 3.5 cm, similar to prior. The hernia now contains only fat whereas previously it contained a loop of transverse colon. There
is marked skin thickening overlying the hernia sac, new from prior. )
Medical Tests (Nuc Med, Echo etc): Other (echo ordered)
Labs: Labs Reviewed by me
--- NOTE | 2024-06-01 11:15 | W.PN.HOSP.TC ---
Today's Communication/Plan
-
see outlined plan below
Assessment / Plan
Assessment / Plan
Assessment:
Septic shock
- continue IVF. Lactate improved from 3.4 to 1.7
- continue pressors; wean as able
Acute UTI
Gram positive bacteremia
- CT: Bilateral perinephric edema, nonspecific
- ID consulted; continue on Vancomycin and Zosyn at present pending culture data
CONSTANCE, likely pre-renal from septic shock
Associated acute metabolic acidosis/lactic acidosis
- continue IVF (bicarbonate IVF)
- [place] placed for critical I/Os
New onset parox Rapid Afib
- continue IV amiodarone
- check TSH
- Echo in AM
- Cardiology consulted
Umbilical hernia
- CT: Re-demonstration of umbilical hernia with abdominal wall defect measuring approximately 4.2 x 3.5 cm, similar to prior. The hernia now contains only fat whereas previously it contained a loop of transverse colon. There is marked skin
thickening overlying the hernia sac, new from prior.
- reducible at bedside partially
- GS evaluation; higher risk for operative intervention at present. eventual intervention timing TBD
- clears started
Acute hyponatremia
Acute hypokalemia
- monitor BMP. replete K as needed
Acute hypocalcemia
- replete IV today
Morbid obesity d/t excess calories
- weight loss encouraged
Essential HTN
- holding lisinopril with CONSTANCE and shock
acute thrombocytopenia
- likely in setting of sepsis
DVT ppx: SC heparin for now
Code: Full
Total Critical Care Time 41 minutes. I was immediately available to the patient and staff. I personally examined, reviewed labs, diagnostic images/reports, interpretations, treatment plans, discussed patient care with other providers and family
or caregivers (if patient is unable to make decisions), entered orders as appropriate and documented the medical record.
Anticipated Discharge: > 48 hours
Subjective/Interval History
-
Date of Service: June 01, 2024
went into rapid Afib overnight - IV Amio started
remains on pressors, IV Abx
Objective Data
-
Labs:
Laboratory Results
06/01/24
03:30
WBC 19.7 H
Hgb 15.3
Hct 42.5
Plt Count 118 L
PT 17.3 H
INR 1.39
APTT 33.4
Sodium 135
Potassium 3.4 L
Chloride 106
Carbon Dioxide 14 L*
BUN 65 H
Creatinine 4.9 H*
Glucose 149 H
Calcium 7.2 L
Total Bilirubin 1.6 H
AST 26
ALT 55 H
Alkaline Phosphatase 74
Vital Signs:
Vital Signs
Temp Pulse Resp BP Pulse Ox
97.8 F 136 26 86/75 93
06/01/24 07:44 06/01/24 10:30 06/01/24 10:30 06/01/24 10:30 06/01/24 10:30
I&O
05/31/24 06/01/24 06/02/24
06:59 06:59 06:59
Intake Total 1372.6 / 1580.4 1064.0 / 1064.0
Output Total 1650 / 1680 380 / 380
Balance -277.4 / -99.6 684.0 / 684.0
Physical Exam
-
General: No Apparent Distress
HEENT: Normocephalic and Atraumatic
Respiratory: Negative Wheezes
Cardiac: Irregular Rhythm and Tachycardic
GI: Soft and Distended (Massive umbilical hernia with edema, erythema, and skin breakdown with associated necrosis, soft, partially reducible, no tenderness with palpation or exam, mild weeping drainage, no bullae or crepitus)
Genito-urinary: No Costovertebral Tender
Neuro: AO x 3
Hematologic / Lymphatic: No Lymphadenopathy
Psych: Calm
Data Reviewed
-
Critical Care Time (in minutes): 41
Labs: Labs Reviewed by me
--- NOTE | 2024-06-01 11:42 | CM ---
CM following re: discharger planning.
Reviewed pt' chart, met with pt.
Pt is a 53 year old male, admitted with primary dx of Cellulitis.
Pt reports he lives alone in an apartment t, no steps, has no children, has parents and they live 2.5 hours away and sister lives in [place]. 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 No DME, VN or SNF history.
PT and OT will evaluate the pt to determine a level of care at discharge.
PCP: [facility]
Pharmacy: [facility].
D/C plan: Home with anticipated no needs vs VN services if recommended by PT/OT.
CM will follow with discharge plan updates as hospitalization progresses
--- NOTE | 2024-06-01 11:43 | CON.ID ---
Consultation
-
Date/Time Consultation Requested: 06/01/2024 0914
Date/Time Consultation Performed: 06/01/2024 1116
Requesting Provider: Dr. Shelton
Performing Provider: Dr. Hernandez
Reason for Consultation: Clinical sepsis
Chief Complaint / Past History
History of Present Illness
Fortunato Posada is a 53-year-old man being evaluated at the request of Dr. Shelton regarding clinical sepsis. History is obtained from chart review, along with patient interview.
The patient presented to the emergency room on 05/31 from his doctor's office secondary to tachycardia and hypotension. He had been into see his PCP for an noted wound on his abdomen. The patient reports that he has known about his umbilical hernia
for years, and notes that occasionally there is some drainage from the inferior aspect of the hernia, associated with skin skin breakdown. Over the past several days, though, a wound has opened up again, with increased purulent drainage, prompting
a visit to his PCP. He notes he has had some fevers and chills. He notes some discomfort in the hernia area. He also notes that he has had decreased urination over the past several days.
He notes he was laid off from his job several months ago and has not had health insurance.
Past History
Additional Past Medical History:
HTN
Morbid obesity
Umbilical hernia
Fatty liver disease
Past Surgical History: None
Allergy History:
No Known Allergies Allergy (Unverified 12/15/23 15:07)
Medications Reviewed: Yes
Current Antibiotics:
Zosyn 2.25 g IV every 6 hours
Vancomycin (dosing per pharmacy)
Social History
Tobacco: Non-Smoker
Alcohol: None
Drug: None
Living: With Family
Employment: Not Employed
Family History
Family History: Not Pertinent
Review of Systems
Vital Signs
Temp Pulse Resp BP Pulse Ox
98.2 F 136 26 86/75 93
06/01/24 11:18 06/01/24 10:30 06/01/24 10:30 06/01/24 10:30 06/01/24 10:30
Physical Exam
Physical Exam
Constitutional: No Acute Distress, Comfortable, Acutely Ill, Non-toxic and Obese
Eyes: No Conjunctival Hemorrhage, Sclera Anicteric and Erythema
Oral: No Thrush and No Ulcers
Cardiovascular: Regular Rate and S1/S2; Negative S3/S4 or Murmur
Pulmonary: Clear; Negative Wheezes, Rales or Rhonchi
Gastrointestinal: Soft and Tender
Genito-Urinary: [place] and Clear Urine
Extremities: Edema; Negative Cyanosis or Erythema
Neurological: Awake and Alert
Psychological: Calm
Lab / Diagnostic Study Results
06/01/24 03:30
06/01/24 03:30
Abs Immat Gran (auto) 0.2 10^3/uL (0-0.05) H 06/01/24 03:30
Absolute Neuts (auto) 17.9 10^3/uL (1.4-6.5) H 06/01/24 03:30
Absolute Lymphs (auto) 0.6 10^3/uL (1.2-3.4) L 06/01/24 03:30
Absolute Monos (auto) 0.8 10^3/uL (0.1-0.6) H 06/01/24 03:30
Absolute Basos (auto) 0.1 10^3/uL (0-0.2) 06/01/24 03:30
Immature Gran % 0.8 % (0-0.5) H 06/01/24 03:30
Neutrophils % 90.5 % (42.2-75.2) H 06/01/24 03:30
Lymphocytes % 2.8 % (20.5-51.1) L 06/01/24 03:30
Monocytes % 4.2 % (1.7-9.3) 06/01/24 03:30
Eosinophils % 1.2 % (0-6) 06/01/24 03:30
Basophils % 0.5 % (0-2) 06/01/24 03:30
PT 17.3 Sec (11.4-14.6) H 06/01/24 03:30
INR 1.39 06/01/24 03:30
Lactic Acid 1.7 mmol/L (0.7-2.0) 05/31/24 18:23
Ur Squamous Epith Cells 0-2 /LPF (Few) 05/31/24 14:45
Microbiology Results
Micro:
05/31/24 14:45 Blood Culture - Preliminary
Blood/Venous Positive culture in progress
Gram Stain - Preliminary
05/31/24 21:04 MRSA Screen - Pending
Nose
05/31/24 15:03 Wound Culture - Pending
Abdomen Gram Stain - Preliminary
05/31/24 14:45 Urine Culture - Pending
Urine
05/31/24 14:45 Blood Culture - Pending
Blood/Venous
Imaging:
06/01/2024 CXR (portable): Low lung volumes noted. No consolidation, effusion or pneumothorax noted. No acute osseous abnormality seen.
05/31/2024 CT abdomen/pelvis without contrast: Redemonstration of umbilical hernia with an abdominal wall defect measuring approximately 4.2 x 3.5 cm. Hernia now contains only fat whereas previously it contained a loop of transverse colon. There is
marked skin thickening overlying the hernia sac, new from prior exam. There is bilateral perinephric edema which is nonspecific. Evaluation for upper tract disease is limited without contrast. Please see full dictation for additional detail.
Film personally viewed.
Assessment / Plan
Clinical sepsis
Hypotension; on 2 pressors
Leukocytosis
Bacteremia (GPC's in chains)
SSTI with dermal gangrene of inferior portion of umbilical hernia
Acute renal failure
Elevated bilirubin
-Suspect secondary to underlying sepsis
Mild transaminitis
HTN
Morbid obesity
Umbilical hernia
Fatty liver disease
Recommendations:
Agree with empiric vancomycin and Zosyn for the present.
Await further identification of currently positive blood cultures.
Will repeat blood cultures for tomorrow to assess clearance.
Wound culture currently pending; await results.
Trend white count and temperature curve.
Wean pressors as possible.
Trend creatinine and adjust antibiotics as appropriate for changing renal function.
Care Review
Plan reviewed with: Nurse
--- NOTE | 2024-06-01 11:46 | CON.INTV ---
Consultation
Consultation Request
Date/Time Consultation Requested: 05/31/2024 22:24
Date/Time Consultation Performed: 06/01/2024 08:00
Requesting Provider: Lian Mays
Performing Provider: Saeed Vallejo MD; Juan Shelton DO (Resident)
Reason for Consultation: ICU Management/Septic Shock Requiring Pressor Support
Medical History
-
History of Present Illness:
This is a 53 year old male with a past medical history of morbid obesity, hypertension (recently diagnosed in December 2023) and a chronic umbilical hernia with chronic surrounding erythema who presented to the emergency department yesterday with
altered mental status and a generally unwell feeling, after being seen by his PCP who noted that he was tachycardic and hypotensive.
With the regards to the patient's umbilical hernia patient states this area has been bothering him for months because of insurance issues he has not had it adequately cared for. He was seen in the emergency room in December at which point he had a
CAT scan which showed a large umbilical hernia which contained a loop of transverse colon but no evidence of obstruction or strangulation at that time. Patient was prescribed Bactrim and discharged for outpatient follow-up.
The patient notes that he has experiencing 'brain fog' and lightheaded dizziness for approximately 5 days prior to arrival in addition to poor oral intake without abdominal pain, nausea, or vomiting. Patient notes that yesterday, the patient felt
that these symptoms were worsening and established care with the primary care residency clinic, who noted that he was hypotensive and tachycardic and sent him to the emergency department. In the ED, the patient was noted to be septic with a WBC
of 22.3 with tachycardia and hypotension and lactate of 3.4. The patient was admitted to the intensive care unit for septic shock requiring pressor support.
After transfer to the ICU, patient developed asymptomatic new-onset atrial fibrillation at approximately (0300).
Past Medical History
Past Medical History: HTN and Other (umbilical hernia)
Past Surgical History: None
Social History
Tobacco: Non-smoker
Alcohol: Occasional
Family History
Family History: Reviewed & Not Pertinent
Allergies / Home Medications
Allergies
Allergy/AdvReac Type Severity Reaction Status Date / Time
No Known Allergies Allergy Unverified 12/15/23 15:07
Home Medications
�Medication �Instructions �Recorded �Confirmed �Last Taken �Type
lisinopril 10 mg tablet 10 mg PO DAILY Blood Pressure 05/31/24 05/31/24 05/31/24 History
Review of Systems
-
History Source: Patient
Constitutional: Fever (n), Fatigue and Chills (n)
Respiratory: Trouble Breathing (n)
Cardiac: Chest Pain (n), Diaphoresis (n), Palpitations (n) and Syncope (n)
Abdomen/GI: Abdominal Pain (n), Nausea (n), Vomiting (n) and Diarrhea (n)
: Dysuria (n), Frequency (n) and Other (decreased urine output)
Skin: Other (worsening erythema with expression of pus from area surrounding umbilical hernia)
Neuro: Dizzy
Vitals / Labs / Diagnostic Testing
Vital Signs
Temp Pulse Resp BP Pulse Ox
98.2 F 136 26 86/75 93
06/01/24 11:18 06/01/24 10:30 06/01/24 10:30 06/01/24 10:30 06/01/24 10:30
Lab Data
06/01/24 03:30
06/01/24 03:30
Laboratory Results
06/01/24
03:30
PT 17.3 H
INR 1.39
APTT 33.4
Lactate (05/31) 1445: 3.4
Lactate (05/31) 1823: 1.7
Microbiology
05/31/24 14:45 Blood/Venous Blood Culture - Preliminary
Positive culture in progress
05/31/24 14:45 Blood/Venous Gram Stain - Preliminary
05/31/24 15:03 Abdomen Gram Stain - Preliminary
Diagnostic Testing:
CT Abdomen/Pelvis w/o Contrast
1. Redemonstration of umbilical hernia with abdominal wall defect measuring approximately 4.2 x 3.5 cm, similar to prior. The hernia now contains only fat whereas previously it contained a loop of transverse colon. There is marked skin thickening
overlying the hernia sac, new from prior.
2. Bilateral perinephric edema, nonspecific. Evaluation for upper urinary tract infection limited without contrast.
CXR (Portable AP)
Low lung volumes noted. No consolidation, effusion or pneumothorax noted. No acute osseous abnormality seen.
Physical Exam
-
HEENT: Normocephalic and Anicteric
Cardiovascular: Other (Irregularly, irregular rhythm; tachycardic. No murmurs, rubs, or gallops. )
Respiratory: Clear, Wheeze (n), Rales (n), Rhonchi (n), Non-Labored Respirations and Accessory Resp Muscle Use (n)
GI: Soft (obese), Non Tender and Other (large umbilical hernia that is soft and nontender to palpation and partially reducible (limited due to size) with an area of surrounding erythema and very small focal areas of necrosis)
Neurology: Awake, Alert, Oriented and No Motor Deficits
Skin: Warm and Dry
General: Respiratory Distress (n), Comfortable, Pain (n) and Fever (n)
Assessment
-
This is a 53 year old male with a past medical history of chronic umbilical hernia, hypertension, and morbid obesity who presented on 05/31/2024 with altered mental status, hypotension, and tachycardia as evaluated by his PCP, and found to be in
septic shock with WBC 22.3, hypotension, tachycardia, and a lactate of 3.4 in the Emergency Department. The patient was admitted to the ICU for treatment of septic shock with requirement of pressors. Overnight, the patient also developed a new-onset
and asymptomatic atrial fibrillation.
IMPRESSION:
Septic Shock
Urosepsis vs. Bacterial Sepsis Secondary to Cellulitis
Lactate on admission 3.4, 1.7 on recheck 4 hours later.
Patient was started on Levophed and transitioned to arun-synephrine to take advantage of rate-lowering side effect.
IVF fluid rescuscitation with sodium bicarb drip.
Input balance of 500 mL.
Blood Culture positive for gram positive cocci in chains (identification pending)
Urine Culture negative
Wound Culture positive for Staph Aureus, Strep Pyogenes, Gram Neg Bacilli
CT shows bilateral perinephric edema, making urosepsis a potential source, however, skin shay cannot be excluded at this time.
Umbilical Hernia
- CT Abdomen/Pelvis w/o IV Contrast: Re-demonstration of umbilical hernia with abdominal wall defect measuring approximately 4.2 x 3.5 cm, similar to prior. The hernia now contains only fat whereas previously it contained a loop of transverse colon.
There is marked skin thickening overlying the hernia sac, new from prior.
- Reducible at bedside partially
- GS evaluation; higher risk for operative intervention at present. eventual intervention timing TBD
- Monitor overlying skin for worsening/improvement in erythema/necrosis
Acute Kidney Injury
- Likely prerenal in the setting of septic shock.
- Current fluid resuscitation with sodium bicarbonate
- [place] catheter placed for critical I/Os
- Improvement in Cr s/p IVF resuscitation
New-Onset Paroxysmal Asymptomatic Atrial Fibrillation
- Likely secondary to the patient's acute condition
- Patient being followed by Cardiology
- Currrently on Amioderone drip
- Rhythm this AM, Afib with RVR with rate around 130-140
Acute Hypokalemia
3.4 this AM
Essential HTN
- Currently holding lisinopril due to prerenal CONSTANCE and shock
Acute Thrombocytopenia
- Likely secondary to sepsis
PLAN:
Neuro:
- RASS goal 0-1; patient appears comfortable without pain interventions.
Cardiovascular:
- Continue Amioderone infusion and intensive cardiac monitoring; goal rate < 130.
- No anticoagulation indicated with [id number] VASc = 1.
- Continue to hold lisinopril (home med) in the setting of the patient's hypotension and prerenal CONSTANCE.
- Continue pressor support with Arun-synephrine (used in lieu of Levophed) with MAP goal > 65.
- Follow up TSH.
- Cardiology to schedule ECHO once patient is more stable.
Respiratory;
- Benign respiratory examination, on 2L O2, wean as tolerated.
GI
- Patient being followed by surgery.
- Advance diet to clears
- Continue to trend liver enzymes
Renal
- Continue to monitor daily creatinine
- Monitor daily weights, I/Os
- Hold nephrotoxic medications
Infectious Disease
- Continue to monitor blood culture and sensitivities, urine culture and sensitivities, wound culture and sensitivities.
- Patient being followed by Infectious disease.
- Vancomycin to cover possible skin source of sepsis, Zosyn to cover possible genitourinary source; narrow once the above become available.
Heme/Onc
- Heparin 5,000 U SQ q8h
Full Code/Clears/Heparin
Data Reviewed
-
EKG: Report reviewed by me
Radiology: Image personally visualized and interpreted and Report reviewed by me
CT Scan: Report reviewed by me
Labs: Labs reviewed by me and Discussed with Patient
--- NOTE | 2024-06-01 11:55 | PTCARENOTE ---
pt started on clear liquid diet, assessment unchanged, ongoing discussion of care with mds/team.
[2024-06-01] MEDS: HEPARIN 5000 UNITS SC ×2 (12:23→21:11)
[2024-06-01] MEDS: CARDIZEM 5 MG IV (12:57)
--- NOTE | 2024-06-01 13:09 | W.PN.GS2 ---
Today's Communication / Plan
-
CLD
Wean pressors
F/u Cx
Assessment / Plan
-
53M with septic shock with presumed urinary source, also chronic skin breakdown at umbilical hernia with assoc cellulitis
AF, switched from levo to roxann for tachycardia, currently 20mcg roxann
WBC 22K --> 20K
CONSTANCE noted
UA with nitrites
UCx pending
BCx with GPC chains
CT A/P with umbilical hernia containing fat, chronic skin changes also noted
Plan:
Cont IV abx per ID
F/u Cx
Wean pressors as sera
Maintain herron for I/Os
Local wound care to umbilical skin with xeroform
CLD
DVT ppx
D/w patient and parents. They live closer to [facility] and prefer for him to get hernia addressed there where parents can provide support. I advised them that presently we are not planning surgery for the hernia. Over the next 24-48 hours the source of
sepsis should be clearer and if urinary source confirmed it may be reasonable to defer hernia surgery for this admission.
Will follow
Subjective Data
-
Date of Service: June 01, 2024
AF, on pressors, denies abd pain, denies n/v
Objective Data
-
Intake and Output
05/31/24 06/01/24 06/02/24
06:59 06:59 06:59
Intake Total 1372.6 / 1580.4 1682.1 / 1682.1
Output Total 1650 / 1680 900 / 900
Balance -277.4 / -99.6 782.1 / 782.1
Intake:
IV fluids (Total) 1272.6 / 1413.4 895.1 / 895.1
AMIO 99.9 / 133.2 150.1 / 150.1
LEVO 172.7 / 180.2 15.0 / 15.0
Nss 1,000 ml @ 100 mls/hr IV . 800 / 800
Q10H SERGIO Rx#:[id number]
Sterile Water For Injection 200 / 300 700 / 700
1000 ml 1,000 ml @ 100 mls/hr
IV .[id number] SERGIO with Sodium
Bicarbonate 150 Meq Rx#:
[id number]
roxann 30 / 30
IV piggybacks 100 / 167 787 / 787
Output:
Urine, [place] 1650 / 1680 900 / 900
Vital Signs
Temp Pulse Resp BP Pulse Ox
98.2 F 129 22 100/74 93
06/01/24 11:18 06/01/24 11:45 06/01/24 11:45 06/01/24 11:45 06/01/24 11:45
Lab Results
06/01/24 03:30
06/01/24 03:30
Calcium 7.2 mg/dl (8.4-10.2) L 06/01/24 03:30
Phosphorus 3.4 mg/dl (2.5-4.5) 06/01/24 03:30
Magnesium 2.0 mg/dl (1.6-2.3) 06/01/24 03:30
Total Bilirubin 1.6 mg/dl (0.2-1.3) H 06/01/24 03:30
AST 26 U/L (17-59) 06/01/24 03:30
ALT 55 U/L (0-50) H 06/01/24 03:30
Alkaline Phosphatase 74 U/L (38-126) 06/01/24 03:30
Total Protein 4.6 g/dl (6.3-8.2) L 06/01/24 03:30
Albumin 2.3 g/dl (3.5-5.0) L 06/01/24 03:30
Physical Exam
-
Gen: NAD
Abd: unchanged from yesterday, Soft, Non Tender, Non Distended, Obese and Other (Massive umbilical hernia with edema, erythema, and skin breakdown with associated necrosis, soft, partially reducible, no tenderness with palpation or exam, mild
weeping drainage, no bullae or crepitus)
Patient has a herron catheter: Yes
Patient has a central line: No
--- NOTE | 2024-06-01 13:47 | WOUNDNOTE ---
[facility] RN note: Patient admitted with urosepsis, open umbilical hernia wound
See H&P for complete history.
PMH: HTN, fatty liver disease, morbid obesity,
Wound Location and type/assessment: Patient admitted with open hernia wound. Per Physician note, umbilical wound is chronic and will be addressed after sepsis resolved. Surgery following. The wound has open, ulcerated areas with soft brown and
yellow slough (30%) and ecchymotic/purple areas (70%). Moderate drainage note, no odor. Patient is a poor historian of events regarding wound. Heels and sacrum intact.
Appetite: On clear diet
Pressure redistribution devices in place: Versa Care Air, patient turns self in bed, heels off-loaded with pillows under calves
Plan: Hernia wound gently cleaned with saline, Xeroform applied and hernia wrapped gently with white absorbant pad.No-sting barrier and adhesive foam applied to heels. Will confirm orders with hospitalist and updated RNAdriana.
Updated care plan and will follow as needed. Will continue to follow peripherally.
Note to case management of equipment requested for discharge:
Recommend follow up at wound care center upon discharge.
[2024-06-01 16:47] LABS: Potassium 3.1 mmol/L (3.5-5.1)
--- NOTE | 2024-06-01 16:52 | PTCARENOTE ---
assessment unchanged, amio and roxann continue. HR 110s-120s. pt with no complaints at this time.
[2024-06-01 16:57] LABS: Vancomycin Random 17.4 ug/ml
[2024-06-01 17:32] LABS: TSH Reflex To Free T4 0.54 uIU/ml (0.47-4.68)
[2024-06-01] MEDS: VANCOCIN 150 IV (18:37)
[2024-06-01] MEDS: KCL 40 MEQ PO (18:37)
--- NOTE | 2024-06-01 19:52 | PTCARENOTE ---
On assessment pt AAOx3, denies pain and SOB, COOMBS, Afib on the monitor, amio gtt infusing per orders, RA94%, clear liquids, herron in place, call barry in reach
[2024-06-02] VITALS (32 sets, daily range): BP systolic 100–164; BP diastolic 77–137; BMI 39.3
--- NOTE | 2024-06-02 | PTCARENOTE ---
no changes from prior assessment, denies pain and SOB, call barry in reach
[2024-06-02] MEDS: CORDARONE 518 MG IV (00:08)
[2024-06-02] MEDS: SODIUM BICARBONATE 1150 MEQ IV (00:09)
[2024-06-02 03:31] LABS: % Basophils 0.4 % (0-2); % Eosinophils 5.2 % (0-6); % Immature Granulocytes 0.7 % (0-0.5); % Lymphocytes 8.4 % (20.5-51.1); % Monocytes 5.8 % (1.7-9.3); % Neutrophils 79.5 % (42.2-75.2); Absolute Basophils 0.1 10^3/uL (0-0.2); Absolute Immature Granulocytes 0.1 10^3/uL (0-0.05); Absolute Lymphocytes 1.6 10^3/uL (1.2-3.4); Absolute Monocytes 1.1 10^3/uL (0.1-0.6); Hematocrit 40.7 % (39.0-52.0); Hemoglobin 15.1 g/dL (13.0-18.0); Mean Corp Hgb Conc. 37.1 g/dL (33.0-37.0); Mean Corpuscular Hgb 30.2 pg (27.0-31.0); Mean Corpuscular Volume 81.4 fL (80.0-94.0); Mean Platelet Volume 11.6 fL (7.4-10.4); Nucleated Red Blood Cells % 0 % (-); Platelet Count 118 10^3/uL (130-400); Red Cell Dist. Width 13.2 % (11.5-14.5); White Blood Cell Count 18.9 10^3/uL (4.8-10.8)
[2024-06-02 03:47] LABS: ALT (SGPT) 42 U/L (0-50); AST (SGOT) 20 U/L (17-59); Albumin 2.3 g/dl (3.5-5.0); Alkaline Phosphatase 84 U/L (38-126); Blood Urea Nitrogen 55 mg/dl (9-20); Calcium 7.3 mg/dl (8.4-10.2); Carbon Dioxide 25 mmol/L (22-30); Chloride 104 mmol/L (98-107); Estimated Creatinine Clearance 48 ml/min; Glucose 116 mg/dl (70-99); Potassium 3.3 mmol/L (3.5-5.1); Sodium 136 mmol/L (135-145); Total Protein 4.5 g/dl (6.3-8.2)
[2024-06-02 03:51] LABS: Vancomycin Random 14.9 ug/ml
[2024-06-02] MEDS: ZOSYN 50 IV ×3 (05:15→16:38)
[2024-06-02] MEDS: HEPARIN 5000 UNITS SC ×3 (05:15→20:05)
[2024-06-02] MEDS: LR 1000 IV ×2 (06:02→16:39)
[2024-06-02] MEDS: KCL 270 MEQ IV (06:18)
--- NOTE | 2024-06-02 06:27 | PTCARENOTE ---
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
at 0600.
--- NOTE | 2024-06-02 07:47 | PTCARENOTE ---
pt received from previous rn- aox4, room air, afib on monitor. amio continues to infuse site c/d/i and wnl. LR and k rider continue as per order. roxann gtt remains off. herron draining yellow to deangelo urine. hernia with drainage noted. no complaints
from patient at this time. educated about plan of care- verbalized understanding. all safety precautions in place, call barry within reach.
--- NOTE | 2024-06-02 08:11 | PHA.VAN.FU ---
Vancomycin Assessment / Plan
- Assessment
Renal Function: SCR Decreasing
WBC's are: Stable
In the past 24 hrs, patient has been: Afebrile
Concomitant Antimicrobials: piperacillin/tazobactam
- Assessment - Therapeutic Drug Monitoring
Random Level: 14.9 - drawn ~8H after previous dose of 750mg
- Dosing Plan
Dosing by Level: Re-dose today (Vanc 1250mg x2 doses - now and at 1800)
Will continue dose by level with unstable renal function
CONSTANCE / clearance improving
Will trial BID dosing for today
With weight > 100kg, patient may be slower to accumulate and reach steady state
- Monitoring Plan
Random Level: 06/03 06
- Follow Up
Pharmacy will continue to follow.
Vancomycin Follow UP
- -
Patient Age: 53
Patient Sex: Male
Vancomycin Day #: 2
Indication: Skin And Soft Tissue
Requesting Provider: Dr. Ledesma
Pertinent Antimicrobial Allergies:
NKDA
Height / Weight:
Height 6 ft 3 in
Actual Weight 142.8 kg
Pertinent Past Medical History: BMI ~39
- Vital Signs / Lab Results
Temp Pulse Resp BP Pulse Ox
98.1 F 116 23 121/91 93
06/02/24 07:45 06/02/24 07:30 06/02/24 07:30 06/02/24 06:00 06/02/24 07:30
Lab Results - Hematology
05/31/24 06/01/24 06/02/24
14:45 03:30 02:43
WBC 22.3 H 19.7 H 18.9 H
Lab Results - Chemistry
05/31/24 06/01/24 06/02/24
14:45 03:30 02:43
BUN 65 H 65 H 55 H
Creatinine 6.7 H* 4.9 H* 2.7 H
Estimated Creat Clear 20 27 48
Albumin 2.5 L 2.3 L 2.3 L
05/31/24 05/31/24
14:45 18:23
Lactic Acid 3.4 H 1.7
Microbiology Results
05/31/24 21:04 MRSA Screen - Final
Nose No Methicillin Resistant Staphylococcus aureus isolated.
05/31/24 15:03 Wound Culture - Preliminary
Abdomen Staphylococcus aureus
Streptococcus pyogenes
Gram negative bacilli
Gram Stain - Preliminary
05/31/24 14:45 Blood Culture - Preliminary
Blood/Venous No Growth in 24 hours- Final report to follow
05/31/24 14:45 Urine Culture - Final
Urine NO GROWTH
05/31/24 14:45 Blood Culture - Preliminary
Blood/Venous Positive culture in progress
Gram Stain - Preliminary
Therapeutic Drug Monitoring
Random Vancomycin 14.9 ug/ml 06/02/24 02:43
[2024-06-02] MEDS: VANCOCIN 275 MG IV (08:37)
--- NOTE | 2024-06-02 09:08 | W.PN.INTV ---
Addendum entered and electronically signed by Saeed Vallejo MD 06/02/24 18:30:
Additional to impression: CONSTANCE --> renally dose all ABx and meds; trend UOP and sCr
Original Note:
Today's Communication / Plan
Recommendations
Discontinue Amiodarone and start Cardizem Drip
Clindamycin added to Vancomycin and Zosyn; follow up sensitivities
Replete potassium
Urgent hernia repair recommended
Consider downgrade to IMU
Assessment
-
This is a 53 year old male with a past medical history of chronic umbilical hernia, hypertension, and morbid obesity who presented on 05/31/2024 with altered mental status, hypotension, and tachycardia as evaluated by his PCP, and found to be in
septic shock with WBC 22.3, hypotension, tachycardia, and a lactate of 3.4 in the Emergency Department. The patient was admitted to the ICU for treatment of septic shock with requirement of pressors. Overnight, the patient also developed a new-onset
and asymptomatic atrial fibrillation.
IMPRESSION:
Septic Shock
Urosepsis vs. Bacterial Sepsis Secondary to Cellulitis
Lactate on admission 3.4, 1.7 on recheck 4 hours later. No longer trending lactate.
Patient was started on Levophed and transitioned to arun-synephrine to take advantage of rate-lowering side effect.
- Patient off of pressors since last night. Stable BPs/MAPs.
IVF fluid resuscitation with sodium bicarb drip, transitioned to lactated Ringer's.
Input balance of 1.2L
Blood Culture positive for Strep Pyogenes
Urine Culture negative
Wound Culture positive for Staph Aureus, Strep Pyogenes, Gram Neg Bacilli
CT shows bilateral perinephric edema
Source of bacteremia is likely skin shay in the setting of skin breakdown in the area of the umbilical hernia
Umbilical Hernia
- CT Abdomen/Pelvis w/o IV Contrast: Re-demonstration of umbilical hernia with abdominal wall defect measuring approximately 4.2 x 3.5 cm, similar to prior. The hernia now contains only fat whereas previously it contained a loop of transverse colon.
There is marked skin thickening overlying the hernia sac, new from prior.
- Reducible at bedside partially
- GS evaluation; higher risk for operative intervention at present. eventual intervention timing TBD
- In discussion with patient family regarding urgent hernia repair pending cardiovascular status; patient family wants surgery to be done at [facility].
- Monitor overlying skin for worsening/improvement in erythema/necrosis
Acute Kidney Injury
- Likely prerenal in the setting of septic shock.
- Creatinine steadily improving. Worst at 6.7; 2.7 today.
- Current fluid resuscitation with LR
- [place] catheter placed for critical I/Os
- Draining clear yellow urine.
- Improvement in Cr s/p IVF resuscitation
New-Onset Paroxysmal Asymptomatic Atrial Fibrillation
- Likely secondary to the patient's acute condition
- Patient being followed by Cardiology
- Currently on Amiodarone drip
- Rhythm this AM, Afib with RVR with rate around 130-140
Acute Hypokalemia
3.4 this AM
Essential HTN
- Currently holding lisinopril due to prerenal CONSTANCE and shock
Acute Thrombocytopenia
- Likely secondary to sepsis
PLAN:
Neuro:
- RASS goal 0-1; patient appears comfortable without pain interventions.
Cardiovascular:
- Continue Amiodarone infusion and intensive cardiac monitoring; goal rate < 130.
- Will need a central line if amiodarone is to continue. Patient is on CLD now, and may be able to tolerate oral Amiodarone or IV/oral Diltiazem instead
- Patient seen by cardiology, to be transitioned to Cardizem drip
- No anticoagulation indicated with [id number] VASc = 1.
- Continue to hold lisinopril (home med) in the setting of the patient's hypotension and prerenal CONSTANCE.
- Consider pressor support with Arun-synephrine (used in lieu of Levophed) with MAP goal > 65.
- Has been off of pressor support since last night.
- Follow up TSH.
- Cardiology to schedule ECHO once patient is more stable.
Respiratory;
- Benign respiratory examination, no longer requiring supplemental oxygen via NC.
GI
- Patient being followed by surgery.
- Advance diet to clears
- Continue to trend liver enzymes
Renal
- Continue to monitor daily creatinine
- Monitor daily weights, I/Os
- Hold nephrotoxic medications
Infectious Disease
- Patient being followed by Infectious disease.
- Continue Vancomycin and Zosyn to cover skin shay and narrow abx choice once sensitivities result.
- Clindamycin added by ID.
Heme/Onc
- Heparin 5,000 U SQ q8h
Full Code/Clears/Heparin
Subjective Dataa
Subjective Data
Date of Service:
Date of Service: June 02, 2024
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
Subjective:
Patient seen and examined while OOB and sitting up in chair. Patient states that he is feeling marginally better than yesterday, denies pain or trouble breathing. Patient has been off of pressor support since last night, maintaining stable MAPs.
Review of Systems
General: Fever (n), Chills (n) and Pain (n)
Cardiopulmonary: Dyspnea (n) and Chest Pain (n)
GI: Abdominal Pain (n), Nausea (n), Vomiting (n) and Diarrhea (as reported by nursing)
Genitourinary: [place]
Objective Data
Data Reviewed
Vital Signs / I&O / Oxygen:
Vital Signs
Temp Pulse Resp BP Pulse Ox
98.1 F 140 26 164/137 93
06/02/24 07:45 06/02/24 08:30 06/02/24 08:30 06/02/24 08:00 06/02/24 08:30
Intake and Output
06/01/24 06/02/24 06/03/24
06:59 06:59 06:59
Intake Total 1372.6 / 1580.4 4078.7 / 4078.7 299.7 / 299.7
Output Total 1650 / 1680 2860 / 2860
Balance -277.4 / -99.6 1218.7 / 1218.7 299.7 / 299.7
SaO2 93
Nasal Cannula flow liters per 2
minute
Physical Exam
General: Respiratory Distress (n), Comfortable, Pain (n), Fever (n) and T Max (98.1)
HEENT: Normocephalic and Anicteric
Cardiovascular: Other (irregularly irregular tachycardic rhythm consistent with atrial fibrillation)
Respiratory: Clear, Wheeze (n), Crackles (n), Rhonchi (n) and Non-Labored Respirations
GI: Soft, Non Distended, Non Tender and Other (obese. There is a baseball sized paraumbilical hernia that is soft and non tender to palpation with erythema of the overlying skin, and small patches of necrotic skin. Dressing overlying is moist)
Neurology: Awake, Alert and Oriented
Skin: Warm
Labs/Micro/Reports
Lab Data
06/02/24 02:43
06/02/24 02:43
Microbiology
05/31/24 14:45 Blood/Venous Blood Culture - Preliminary
Positive culture in progress
05/31/24 14:45 Blood/Venous Gram Stain - Preliminary
05/31/24 15:03 Abdomen Wound Culture - Final
S aureus-Methicillin Sensitive
Escherichia coli
Enterobacter cloacae
Streptococcus pyogenes
05/31/24 15:03 Abdomen Gram Stain - Final
05/31/24 21:04 Nose MRSA Screen - Final
No Methicillin Resistant Staphylococcus aureus isolated.
05/31/24 14:45 Blood/Venous Blood Culture - Preliminary
No Growth in 24 hours- Final report to follow
05/31/24 14:45 Urine Urine Culture - Final
NO GROWTH
--- NOTE | 2024-06-02 09:12 | W.PN.CD ---
Today's Communication / Plan
-
Patient has been on IV amiodarone for 24 hours. Heart rate control suboptimal. Blood pressures improved.
Will transition from IV amiodarone to IV Cardizem and will continue to monitor blood pressures.
Not currently on anticoagulation as noted above
Impression / Plan
-
Septic shock:
-this diagnosis is threat to life
-Blood pressure improved
-OFF pressors (phenylephrine)
- IV abx. As per ID and primary team
. 1 BC positive for strep pyogenes
-Umbilical hernia-surgery consulted. Timing of surgery - see surgical consultants note. No eminent plan for surgery. Patient's parents lives closer to [facility] and it appears there is a preference to have hernia repair there.
AFIB with RVR:
-in setting of acute illness
-Initially on IV amiodarone, due to low blood pressures and A-fib with RVR. Rate still in the 120s. Appropriate for patient have some degree of tachycardia considering clinical circumstances but rate control is still up but suboptimal with heart
rates in the 120s and 130s. Blood pressures have now improved.
-Transition from IV amiodarone to IV Cardizem and monitor blood pressure
-Patient not on anticoagulation initially due to concerns regarding intra-abdominal process and potential need for intervention.
-[id number] score 1 for HTN. Not on anticoagulation due to issues noted above. Safe
-Echo
HTN:
-Continue to monitor as patient recovers
CONSTANCE:
Improving. Creatinine was up to 6.7now down to 2.7 continue to monitor
Metabolic acidosis improved
Physical Exam
Vital Signs/Labs
Vital Signs
Temp Pulse Resp BP Pulse Ox
98.1 F 140 26 164/137 93
06/02/24 07:45 06/02/24 08:30 06/02/24 08:30 06/02/24 08:00 06/02/24 08:30
0206/02/24 06/03/24
06:59 06:59 06:59
Actual Weight 141 kg 142.8 kg
06/02/24 02:43
06/02/24 02:43
PT 17.3 Sec (11.4-14.6) H 06/01/24 03:30
INR 1.39 06/01/24 03:30
APTT 33.4 Sec (23.4-35.0) 06/01/24 03:30
Magnesium 2.0 mg/dl (1.6-2.3) 06/01/24 03:30
Physical Exam
Constitutional: No acute distress
Cardiovascular: Rhythm/rate is irregular
Respiratory: Respiratory effort normal
GI: Soft
Data Reviewed
-
Date of Service: June 02, 2024
Medical Decision Making: Reviewed Test Results
X-Ray/CT/US/MRI/NUC/PET: Report Reviewed by me
Medical Tests (PFT, Pathology etc): Report Reviewed by me and Discussed with Nurse
Labs: Labs Reviewed by me
--- NOTE | 2024-06-02 10:14 | W.PN.HOSP.TC ---
Today's Communication/Plan
-
IV Dilt (IV amio to be stopped)
replete K+
continue IV abx
Assessment / Plan
Assessment / Plan
Assessment:
Septic shock
- continue IVF
- pressors were weaned off 06/02 AM
Cellulitis with dermal gangrene of inferior portion of umbilical hernia
Strep pyogenes bacteremia
- wound culture with MSSA, E. Coli, Enterobacter cloacae, strep pyogenes
- ID following; continue on Vancomycin and Zosyn
CONSTANCE, likely pre-renal from septic shock
Associated acute metabolic acidosis/lactic acidosis
- continue IVF
- [place] in place for critical I/Os
New onset parox Rapid Afib
- stopping IV Amiodarone and starting IV Cardizem
- TSH normal
- Echo pending
- Cardiology following
- not on AC currently due to possible operative intervention
Umbilical hernia
- CT: Re-demonstration of umbilical hernia with abdominal wall defect measuring approximately 4.2 x 3.5 cm, similar to prior. The hernia now contains only fat whereas previously it contained a loop of transverse colon. There is marked skin
thickening overlying the hernia sac, new from prior.
- reducible at bedside partially
- GS following; tentatively for open repair 06/03; please obtain deep cultures if fluid collection(s) found in OR.
- continue clears
Acute hyponatremia
Acute hypokalemia
- monitor BMP. replete K as needed
Acute hypocalcemia
- corrected Ca normal with low albumin
Morbid obesity d/t excess calories
- weight loss encouraged
Essential HTN
- holding lisinopril with CONSTANCE and shock
acute thrombocytopenia
- likely in setting of sepsis; stable
- no active bleeding
DVT ppx: SC heparin for now
Code: Full
Total Critical Care Time 41 minutes. I was immediately available to the patient and staff. I personally examined, reviewed labs, diagnostic images/reports, interpretations, treatment plans, discussed patient care with other providers and family
or caregivers (if patient is unable to make decisions), entered orders as appropriate and documented the medical record.
Anticipated Discharge: > 48 hours
Subjective/Interval History
-
Date of Service: June 02, 2024
BP improved
now off pressors
IV amio being switched to IV Diltiazem
possible OR tomorrow
patient without complaints
Objective Data
-
Labs:
Laboratory Results
06/02/24
02:43
WBC 18.9 H
Hgb 15.1
Hct 40.7
Plt Count 118 L
Sodium 136
Potassium 3.3 L
Chloride 104
Carbon Dioxide 25
BUN 55 H
Creatinine 2.7 H
Glucose 116 H
Calcium 7.3 L
Total Bilirubin 1.0
AST 20
ALT 42
Alkaline Phosphatase 84
Vital Signs:
Vital Signs
Temp Pulse Resp BP Pulse Ox
98.1 F 140 26 164/137 93
06/02/24 07:45 06/02/24 08:30 06/02/24 08:30 06/02/24 08:00 06/02/24 08:30
I&O
06/01/24 06/02/24 06/03/24
06:59 06:59 06:59
Intake Total 1372.6 / 1580.4 4078.7 / 4078.7 299.7 / 299.7
Output Total 1650 / 1680 2860 / 2860
Balance -277.4 / -99.6 1218.7 / 1218.7 299.7 / 299.7
Physical Exam
-
General: No Apparent Distress
HEENT: Normocephalic and Atraumatic
Respiratory: Negative Wheezes
Cardiac: Irregular Rhythm and Tachycardic
GI: Soft
Musculoskeletal: No Edema
Neuro: AO x 3
Psych: Calm
Data Reviewed
-
Critical Care Time (in minutes): 41
Labs: Labs Reviewed by me
[2024-06-02] MEDS: CARDIZEM 125 IV ×2 (10:17→18:01)
--- NOTE | 2024-06-02 10:21 | W.PN.GS2 ---
Today's Communication / Plan
-
`
Assessment / Plan
-
53-year-old male presenting with septic shock, A-fib with RVR and CONSTANCE in the setting of a large chronically incarcerated umbilical hernia without strangulation but with open dermal ulceration and wounds and surrounding cellulitis as well as
Streptococcus bacteremia. UA dirty but culture negative for growth. Open skin wound with polymicrobial growth as well.
Lengthy and detailed discussions with the patient followed by both of his parents via phone call.
Advised that I suspect that there will be continued difficulties resolved his acute medical illness in the setting of his umbilical hernia wounds both from an infectious as well as atrial fibrillation response.
There is been significant clinical improvement since initial resuscitation with improving CONSTANCE, resolution of sepsis and now off of vasopressors and patient appears medically stable for consideration of surgery.
Based on this I recommended correction of his hernia at this index hospitalization rather than attempts at deferring which would likely result in high likelihood of recurrent hospitalizations/emergency department care rather than a successful bridge
to outpatient correction of his hernia either at this hospital or at another Medical Center.
After discussions patient's parents are in agreement and will discuss with her son. Patient also seemed to be comfortable with plan for surgery as long as his family members were. Anticipated operation of the open umbilical hernia pair with
probable synthetic resorbable mesh and excision of the redundant skin/open wounds with possible closure versus healing by delayed secondary intention.
Plan: Await further discussions with patient and his parents regarding final plan for management of his chronically incarcerated umbilical hernia with resultant cellulitis, open wounds
He has been tentatively added onto the OR schedule for 06/03/2024
Continue antibiotics as per ID
Maintain clear liquid diet and hold on advancing in anticipation of surgery tomorrow.
Subjective Data
-
Date of Service: June 02, 2024
Patient seen and examined.
Denies abdominal pain but generally does not feel well.
Hiccups are ongoing but denies nausea.
Objective Data
-
Intake and Output
06/01/24 06/02/24 06/03/24
06:59 06:59 06:59
Intake Total 1372.6 / 1580.4 4078.7 / 4078.7 299.7 / 299.7
Output Total 1650 / 1680 2860 / 2860
Balance -277.4 / -99.6 1218.7 / 1218.7 299.7 / 299.7
Intake:
IV fluids (Total) 1272.6 / 1413.4 3091.7 / 3091.7 116.7 / 116.7
AMIO 99.9 / 133.2 450.7 / 450.7 16.7 / 16.7
LEVO 172.7 / 180.2 15.0 / 15.0
Lr 1,000 ml @ 100 mls/hr IV . 200 / 200 100 / 100
Q10H SERGIO Rx#:[id number]
Nss 1,000 ml @ 100 mls/hr IV . 800 / 800
Q10H SERGIO Rx#:[id number]
Sterile Water For Injection 200 / 300 2300 / 2300
1000 ml 1,000 ml @ 100 mls/hr
IV .[id number] SERGIO with Sodium
Bicarbonate 150 Meq Rx#:
[id number]
roxann 126 / 126
IV piggybacks 100 / 167 987 / 987 183 / 183
Output:
Urine, [place] 1650 / 1680 2860 / 2860
Vital Signs
Temp Pulse Resp BP Pulse Ox
98.1 F 140 26 164/137 93
06/02/24 07:45 06/02/24 08:30 06/02/24 08:30 06/02/24 08:00 06/02/24 08:30
Lab Results
06/02/24 02:43
06/02/24 02:43
Calcium 7.3 mg/dl (8.4-10.2) L 06/02/24 02:43
Phosphorus 3.4 mg/dl (2.5-4.5) 06/01/24 03:30
Magnesium 2.0 mg/dl (1.6-2.3) 06/01/24 03:30
Total Bilirubin 1.0 mg/dl (0.2-1.3) 06/02/24 02:43
AST 20 U/L (17-59) 06/02/24 02:43
ALT 42 U/L (0-50) 06/02/24 02:43
Alkaline Phosphatase 84 U/L (38-126) 06/02/24 02:43
Total Protein 4.5 g/dl (6.3-8.2) L 06/02/24 02:43
Albumin 2.3 g/dl (3.5-5.0) L 06/02/24 02:43
Physical Exam
-
NAD AAOx3 sitting in chair at hospital bedside. Acutely ill-appearing but stable.
ABD: Soft, obese, nontender.
Large redundant umbilical hernia sac with open dermal wounds/ulceration and seepage surrounding erythema and skin induration. Soft and partially reducible. Did not attempt to fully reduce.
Patient has a herron catheter: Yes
[2024-06-02] MEDS: KLOR-CON 40 MEQ PO (10:35)
--- NOTE | 2024-06-02 11:12 | PTCARENOTE ---
am care provided- pt oob to chair, no complaints at this time. amio gtt transitioned to [facility]. plan of care discussed with mds. pt aware of plan- verbalized understanding. assessment unchanged.
--- NOTE | 2024-06-02 12:09 | CM ---
CM following re: discharge planning.
Discussed in rounds, reviewed pt's chart, met with pt. Pt's mother Emelia [phone] and pt's father Royal [phone] at bedside.
pt's parents brought their concerns regrading=g pt's current health condition, insurance coverage, etc. Pt's parents gave me pt's insurance card, CM made a copy and faxed to admissions department. Pt's parents stated they live 2.5 hours away
from here and they are planning to bring their son to their house when pt is medically and physically stable. Pt's mother feels that pt will need a rehab upon the discharge. CM explained to pt's mother that PT and OT will evaluate the pt to
determine a level of care at discharge.
D/C plan: Awaiting PT and OT evaluations and recommendations.
CM will follow with discharge plan updates as hospitalization progresses
--- NOTE | 2024-06-02 12:14 | CARDSERVLU ---
Echocardiogram with Lumason completed after protocol screening completed. Allergies verified.
Patent IV site: __Rt AC___
IV site flushed with 0.9% NaCl pre and post administration.
Diluted bolus method utilized to enhance visualization of ventricular manley.
Total volume given: 1.5____ mL
Patient tolerated all procedures well without complications.
--- NOTE | 2024-06-02 13:40 | W.PN.ID1 ---
Date of Service
Date of Service: June 02, 2024
Today's Communication
Continue antibiotics. See below�
Assessment / Plan
Clinical sepsis
Hypotension; pressors weaned to off.
Leukocytosis
Bacteremia (Streptococcus pyogenes)
SSTI with dermal gangrene of inferior portion of umbilical hernia
Acute renal failure
Elevated bilirubin
-Suspect secondary to underlying sepsis
Mild transaminitis
HTN
Morbid obesity
Umbilical hernia
Fatty liver disease
Recommendations:
Blood cultures with Streptococcus pyogenes.
Superficial wound culture swab reveals polymicrobial growth, including MSSA, Streptococcus pyogenes and others.
Discontinue further vancomycin. Continue with Zosyn, dosed for renal insufficiency.
Add clindamycin given group A strep bacteremia.
Repeat blood culture pending.
Trend white count and temperature curve.
Trend creatinine and adjust antibiotics as appropriate for changing renal function.
����������������������������������������������������������
Chief Complaint
-: Clinical Sepsis, Cellulitis and Bacteremia
Subjective / Review of Systems
Review of Systems: No Fever and No Chills
Vital Signs / Physical Exam
Vital Signs
Vital Signs
Temp Pulse Resp BP Pulse Ox
98.1 F 110 29 139/101 92
06/02/24 12:11 06/02/24 13:00 06/02/24 13:00 06/02/24 13:00 06/02/24 13:00
Physical Exam
Constitutional: Comfortable, Chronically Ill, Non-toxic and Obese
Eyes: Sclera Anicteric
Cardiovascular: S1/S2; Negative S3/S4
Pulmonary: Non Labored
Gastrointestinal: Soft, Tender and Other (Large umbilical hernia noted, with erythema, warmth and inferior wound with areas of dermal gangrene.)
Genito-Urinary: [place] and Clear Urine
Neurological: Awake and Alert
Psychological: Calm
Objective Data
Lab Data
Lab Results
06/02/24 02:43
06/02/24 02:43
PT 17.3 Sec (11.4-14.6) H 06/01/24 03:30
INR 1.39 06/01/24 03:30
APTT 33.4 Sec (23.4-35.0) 06/01/24 03:30
Estimated Creat Clear 48 ml/min 06/02/24 02:43
Lactic Acid 1.7 mmol/L (0.7-2.0) 05/31/24 18:23
Total Bilirubin 1.0 mg/dl (0.2-1.3) 06/02/24 02:43
AST 20 U/L (17-59) 06/02/24 02:43
ALT 42 U/L (0-50) 06/02/24 02:43
Alkaline Phosphatase 84 U/L (38-126) 06/02/24 02:43
Most recent labs reviewed.
Micro Results:
06/02/24 10:14 Blood Culture - Pending
Blood/Venous
05/31/24 14:45 Blood Culture - Preliminary
Blood/Venous Streptococcus pyogenes
Gram Stain - Preliminary
05/31/24 15:03 Wound Culture - Final
Abdomen S aureus-Methicillin Sensitive
Escherichia coli
Enterobacter cloacae
Streptococcus pyogenes
Gram Stain - Final
05/31/24 21:04 MRSA Screen - Final
Nose No Methicillin Resistant Staphylococcus aureus isolated.
05/31/24 14:45 Blood Culture - Preliminary
Blood/Venous No Growth in 24 hours- Final report to follow
05/31/24 14:45 Urine Culture - Final
Urine NO GROWTH
Imaging:
06/01/2024 CXR (portable): Low lung volumes noted. No consolidation, effusion or pneumothorax noted. No acute osseous abnormality seen.
05/31/2024 CT abdomen/pelvis without contrast: Redemonstration of umbilical hernia with an abdominal wall defect measuring approximately 4.2 x 3.5 cm. Hernia now contains only fat whereas previously it contained a loop of transverse colon. There is
marked skin thickening overlying the hernia sac, new from prior exam. There is bilateral perinephric edema which is nonspecific. Evaluation for upper tract disease is limited without contrast. Please see full dictation for additional detail.
Film personally viewed.
Care Review
Plan reviewed with: Other (Clinical Pharmacist)
[2024-06-02] MEDS: CLEOCIN 50 IV ×2 (14:57→21:49)
--- NOTE | 2024-06-02 16:43 | PTCARENOTE ---
pt remains on cardiziem gtt, HR 90s-110s. pt resting comfortably, iv antibiotics and fluids continue as per order. no change in assessment.
--- NOTE | 2024-06-02 21:38 | PTCARENOTE ---
On assessment pt AAOx3, denies pain and SOB, COOMBS, Afib on the monitor, HR in the 80s-90s, amio gtt d/c and cardizem infusing per orders, RA 94%, clear liquids, NPO at midnight for surgery in the AM, herron in place, call barry in reach
[2024-06-02] MEDS: ZOSYN 100 IV (21:49)
--- NOTE | 2024-06-02 23:56 | PTCARENOTE ---
no changes from prior assessment, denies pain and SOB, call barry in reach.
[2024-06-03] VITALS (29 sets, daily range): BP systolic 111–156; BP diastolic 98–122; BMI 39.6
[2024-06-03] MEDS: LR 1000 IV (00:07)
[2024-06-03] MEDS: HEPARIN SC ×2 (00:28→14:04)
[2024-06-03] MEDS: ZOSYN 100 IV ×3 (04:06→21:52)
[2024-06-03] MEDS: CLEOCIN 50 IV ×3 (05:56→21:52)
--- NOTE | 2024-06-03 06:14 | PTCARENOTE ---
Difficulty drawing morning labs due to increased edema to b/l hands, denies pain at this time, hands elevated on pillow and hand IVs removed. call barry in reach
[2024-06-03 06:18] LABS: ALT (SGPT) 34 U/L (0-50); AST (SGOT) 19 U/L (17-59); Albumin 2.4 g/dl (3.5-5.0); Alkaline Phosphatase 69 U/L (38-126); Blood Urea Nitrogen 39 mg/dl (9-20); Calcium 7.8 mg/dl (8.4-10.2); Carbon Dioxide 24 mmol/L (22-30); Chloride 102 mmol/L (98-107); Estimated Creatinine Clearance 78 ml/min; Glucose 104 mg/dl (70-99); Hematocrit 42.9 % (39.0-52.0); Hemoglobin 15.1 g/dL (13.0-18.0); Mean Corp Hgb Conc. 35.2 g/dL (33.0-37.0); Mean Corpuscular Hgb 29.3 pg (27.0-31.0); Mean Corpuscular Volume 83.1 fL (80.0-94.0); Mean Platelet Volume 11.1 fL (7.4-10.4); Phosphorus 3.1 mg/dl (2.5-4.5); Platelet Count 115 10^3/uL (130-400); Potassium 3.6 mmol/L (3.5-5.1); Red Blood Cell Count 5.16 10^6/uL (4.70-6.10); Red Cell Dist. Width 13.4 % (11.5-14.5); Sodium 135 mmol/L (135-145); Total Bilirubin 1.5 mg/dl (0.2-1.3); eGFR 47.91
[2024-06-03] MEDS: CARDIZEM 125 IV (06:25)
--- NOTE | 2024-06-03 07:47 | PTCARENOTE ---
Pt rec'd in report, cardizem gtt infusing at 5 ml/hr...HR 101 in afib on tele (see flowsheet), IVF at 100/hr, BPs elevated. MD notified. Plan discussed. Pt aox3 with hiccups, no c/o pain. Tentatively for OR today for planned hernia repair. Order
reviewed. Safe environment maintained.
--- NOTE | 2024-06-03 08:28 | W.PN.CD ---
Today's Communication / Plan
-
Maintain diltiazem gtt for rate control.
Tentative plan for abdominal hernia surgery.
We will start GDMT and consider KAYLEY guided DCCV after his surgery.
Hold therapeutic anticoagulation at this time.
Impression / Plan
-
Impression/Plan: 53 y/o male with HTN and obesity, known umbilical hernia with associated skin breakdown admitted with septic shock and streptococcus pyogenes bacteremia associated with the overlying hernia skin breakdown, complicated by atrial
fibrillation with rapid ventricular response and mild cardiomyopathy.
#Septic shock/Streptococcus pyogenes bacteremia
-Acute, improving with antibiotics and supportive treatment.
-This diagnosis is threat to life.
-Blood pressure improved, no longer requiring pressors.
-BCx + for S. pyogenes in 1 of 2 BCx. Repeat Cx shows NGTD.
-Skin culture is polymicrobial (but includes S. pyogenes).
-IV abx as per ID and primary team.
#Umbilical hernia
-General surgery consulted.
-Surgery today.
#AFIB with RVR:
-Acute, paroxysmal in the setting of acute illness. Normal TSH.
-Initially on IV amiodarone due to hypotension. Transitioned to diltiazem gtt with improvement in BP. HR now ~ 100 bpm, acceptable.
-Transition from IV amiodarone to IV Cardizem and monitor blood pressure
-[id number] score = 1 (HTN).
-No role for anticoagulation due to likely surgical intervention.
-Post surgery, we will consider KAYLEY guided DCCV as his sepsis resolves.
#Mild SHOT COAT TENDER
-New diagnosis.
-Echo shows LVEF 45% without regional wall motion abnormalities.
-No angina, evidence of congestive heart failure.
-I suspect this is due to his acute presentation and LV suppression from septic shock and atrial fibrillation, though other causes of SHOT COAT TENDER exist.
-No role for ischemic workup prior to surgery as this takes priority.
-Consider KAYLEY guided DCCV after surgery.
-Repeat echocardiogram in 3 months. If LVEF is still depressed, we will reconsider ischemic evaluation.
#HTN:
-Chronic, hypotensive on presentation, now recovering.
-Monitor and restart home medications as BP indicates, though I defer that to after his surgery.
#CONSTANCE:
-Improving.
-Creatinine was up to 6.7, now down to 1.7.
Subjective/Interval History:
Patient seen by GS yesterday.
Tentative plan for umbilical hernia surgery during this hospitalization.
WBC down to 12.
Creatinine improved to 1.7 (6.7 on presentation, baseline 1.1).
DATA:
CT Abdomen, 06/01/2024:
IMPRESSION:
1. Redemonstration of umbilical hernia with abdominal wall defect measuring approximately 4.2 x 3.5 cm, similar to prior. The hernia now contains only fat whereas previously it contained a loop of transverse colon. There is marked skin thickening
overlying the hernia sac, new from prior.
2. Bilateral perinephric edema, nonspecific. Evaluation for upper urinary tract infection limited without contrast.
Transthoracic echocardiogram, 06/02/2024:
CONCLUSIONS
Contrast was used. Rhythm is A fib with RVR.
Mildly reduced left ventricular systolic function. Left ventricular ejection
fraction is 45%.
Normal right ventricular size and function.
No significant valve disease.
Mildly dilated aortic root. Sinus of Valsalva measures 4.3 cm. , sinotubular
junction measures 3.8 cm. , and ascending aorta measures 3.9 cm.
No prior study available for comparison.
Physical Exam
Vital Signs/Labs
Vital Signs
Temp Pulse Resp BP Pulse Ox
36.4 C 102 22 142/104 95
06/03/24 03:08 06/03/24 07:45 06/03/24 07:45 06/03/24 07:29 06/03/24 07:45
06/01/24 06/02/24 06/03/24
11:59 11:59 11:59
Actual Weight 141 kg 142.8 kg 143.7 kg
06/03/24 05:33
06/03/24 05:33
PT 17.3 Sec (11.4-14.6) H 06/01/24 03:30
INR 1.39 06/01/24 03:30
APTT 33.4 Sec (23.4-35.0) 06/01/24 03:30
Magnesium 2.0 mg/dl (1.6-2.3) 06/03/24 05:33
Physical Exam
Constitutional: No acute distress and Comfortable
EENT: Anicteric and Moist mucous membranes
Cardiovascular: Pedal edema is absent, JVD pressure is normal, Rhythm/rate is irregular, S1S2 is normal and Murmur/rub/gallop absent
Respiratory: Respiratory effort normal, Lungs clear to auscul., Wheeze Absent, Crackles Absent and Rhonchi Absent
GI: Soft, Distention absent, Flat, Non tender, Normal bowel sounds and Other (There is skin breakdown near the caudal aspect of his large umbilical hernia.)
Neuro/Psych: AO x 3
Data Reviewed
-
Date of Service: June 03, 2024
Medical Decision Making: Reviewed Test Results, Independent Historian Assessment, Test Interpretation and Review of Case with other Provider
EKG: Tracing Personally Visualized and interpreted and Report Reviewed by me
Echo: Report Reviewed by me
X-Ray/CT/US/MRI/NUC/PET: Image Personally Visualized and interpreted and Report Reviewed by me
Medical Tests (PFT, Pathology etc): Report Reviewed by me
Labs: Labs Reviewed by me and Labs Ordered by me
Old Records: Reviewed
[2024-06-03 08:47] LABS: % Basophils 0.4 % (0-2); % Eosinophils 6.2 % (0-6); % Immature Granulocytes 0.9 % (0-0.5); % Lymphocytes 17.7 % (20.5-51.1); % Monocytes 8.1 % (1.7-9.3); % Neutrophils 66.7 % (42.2-75.2); Absolute Basophils 0.1 10^3/uL (0-0.2); Absolute Eosinophils 0.7 10^3/uL (0-0.7); Absolute Immature Granulocytes 0.1 10^3/uL (0-0.05); Absolute Lymphocytes 2.1 10^3/uL (1.2-3.4); Nucleated Red Blood Cells % 0 % (-)
--- NOTE | 2024-06-03 09:14 | PTOTSP ---
Reviewed chart and s/w RN who reports pt is going to OR soon and not appropriate for PT evaluation. Will need new orders for PT and OT post-op when stable to begin activity.
--- NOTE | 2024-06-03 09:27 | W.SUR.PREOP ---
Pre-Operative Surgical Note
-
I have examined this patient prior to the performance of the scheduled procedure.
The patient's condition is unchanged from the time of the current History and
Physical and the patient is able to undergo the scheduled procedure.
--- NOTE | 2024-06-03 09:47 | PTCARENOTE ---
Report given to Marybeth in OR approx 10:00, pt was sent to OR with 2 transport persons at 09:35...they informed this RN they are not allowed to transport medications, so IV abx was labeled and sent in tube to OR. This RN requested UC to call and
notify OR of the above. Pt nervous, parents at bedside offering emotional support.
--- NOTE | 2024-06-03 11:04 | W.PN.HOSP.TC ---
Today's Communication/Plan
-
continue IV Cardizem; possible KAYLEY/CV in future
OR today
Assessment / Plan
Assessment / Plan
Assessment:
Septic shock
- pressors were weaned off 06/02 AM
Cellulitis with dermal gangrene of inferior portion of umbilical hernia
Strep pyogenes bacteremia
- wound culture with MSSA, E. Coli, Enterobacter cloacae, strep pyogenes
- ID following; continue Zosyn and Clindamycin
CONSTANCE, likely pre-renal from septic shock
Associated acute metabolic acidosis/lactic acidosis
- [place] in place for critical I/Os and CONSTANCE
- Cr 1.7 after IVF
New onset parox Rapid A.fib
- stopping IV Amiodarone. Continue IV Cardizem
- TSH normal
- Echo: Mildly reduced left ventricular systolic function. Left ventricular ejection fraction is 45%. Normal right ventricular size and function. No significant valve disease. Mildly dilated aortic root. Sinus of Valsalva measures 4.3 cm. ,
sinotubular junction measures 3.8 cm. and ascending aorta measures 3.9 cm.
- Cardiology following
- not on AC currently due to possible operative intervention
- possible KAYLEY/CV per Cards after operative recovery
Umbilical hernia
- CT: Re-demonstration of umbilical hernia with abdominal wall defect measuring approximately 4.2 x 3.5 cm, similar to prior. The hernia now contains only fat whereas previously it contained a loop of transverse colon. There is marked skin
thickening overlying the hernia sac, new from prior.
- reducible at bedside partially
- GS following; for open repair today; please obtain deep cultures if fluid collection(s) found in OR.
Acute hyponatremia
Acute hypokalemia
- monitor BMP. replete K as needed
Acute hypocalcemia
- corrected Ca normal with low albumin
Morbid obesity d/t excess calories
- weight loss encouraged
Essential HTN
- holding lisinopril with CONSTANCE and shock
acute thrombocytopenia
- likely in setting of sepsis; stable
- no active bleeding
bilateral upper extremity edema in setting of IVF
- check US to evaluate clots
DVT ppx: SC heparin for now
Code: Full
Anticipated Discharge: > 48 hours
Subjective/Interval History
-
Date of Service: June 03, 2024
Cr 1.7
for OR today
Objective Data
-
Labs:
Laboratory Results
06/03/24
05:33
WBC 12.0 H
Hgb 15.1
Hct 42.9
Plt Count 115 L
Sodium 135
Potassium 3.6
Chloride 102
Carbon Dioxide 24
BUN 39 H
Creatinine 1.7 H
Glucose 104 H
Calcium 7.8 L
Total Bilirubin 1.5 H
AST 19
ALT 34
Alkaline Phosphatase 69
Vital Signs:
Vital Signs
Temp Pulse Resp BP Pulse Ox
97.6 F 118 16 150/107 92
06/03/24 03:08 06/03/24 09:45 06/03/24 09:45 06/03/24 09:08 06/03/24 09:45
I&O
06/02/24 06/03/24 06/04/24
06:59 06:59 06:59
Intake Total 4078.7 / 4078.7 3251.1 / 3251.1
Output Total 2860 / 2860 2600 / 2600 350 / 350
Balance 1218.7 / 1218.7 651.1 / 651.1 -335 / -335
Physical Exam
-
General: No Apparent Distress
HEENT: Normocephalic and Atraumatic
Respiratory: Negative Wheezes
Cardiac: Irregular Rhythm and Tachycardic
GI: Other (umbilical hernia)
Neuro: AO x 3
Data Reviewed
-
Total Time Spent with Patient (in minutes): 41
Labs: Labs Reviewed by me
--- NOTE | 2024-06-03 12:43 | W.IMMPOSTOP ---
Addendum entered and electronically signed by Fortunato Tello MD 06/03/24 17:13:
#[id number]
Original Note:
Surgical Immed Post Op Note
-
Primary Surgeon: Fortunato Tello MD
Assisting Surgeon: Nadeen MARINO
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
Procedure Performed: Open umbilical hernia pair with mesh; 6 cm maximal length
Anesthesia Type: GETA +0.25% Marcaine
Specimen / Cultures: None
Estimated Blood Loss: 44 mL
Complications: None immediate
Operative Findings: Large chronically incarcerated umbilical hernia with omentum. Necrotic dermis and associated subcutaneous tissue/hernia sac excised and discarded. Fascial edges cleared. Hernia contents easily reduced. No bowel involvement.
Fascial defect 6 cm vertically by 4 cm in width. Underlay preperitoneal mesh repair with phasix synthetic bioresorbable mesh measuring 16 cm vertically and 8 cm in width. Mesh secured laterally to posterior sheath with 2-0 PDS suture. Closure of
fascial defect with #1 PDS STRATAFIX suture. Subcutaneous tissues closed in multilayer fashion with skin closure and REBECCA dressing applied.
Left voicemail message for patient's father with phone call
--- NOTE | 2024-06-03 13:24 | CM ---
M following re: discharge planning.
Discussed in rounds, reviewed pt's chart, met with pt. Pt's mother Emelia [phone] and pt's father Royal [phone] at bedside.
Pt to OR today for Open umbilical hernia pair with mesh, continue supportive care.
Pt and OT will evaluate the pt to determine a level of care at discharge.
D/C plan: Awaiting PT and OT evaluations and recommendations.
CM will follow with discharge plan updates as hospitalization progresses
[2024-06-03] MEDS: ZOSYN IV (14:03)
[2024-06-03] MEDS: CARDIZEM CD 120 MG PO (15:04)
--- NOTE | 2024-06-03 15:15 | PTCARENOTE ---
Pt returned back to room from PACU approx 14:30. SR on tele with HR in the 80s as per [employer] MEDICAL COORDINATOR reported, notified, orders to dc cardizem gtt and transition to PO. Pt is AOx3, no complaints. 2L NC maintained while pt dozing for sa02 in high 80s.
REBECCA dressing CDI, indicator light flashing green. CLD ordered, pt sipping sprite, no needs at this time. Plan of care discussed with patient and his parents at bedside.
[2024-06-03] MEDS: ZESTRIL 10 MG PO (16:36)
--- NOTE | 2024-06-03 17:33 | W.PN.ID1 ---
Date of Service
Date of Service: June 03, 2024
Today's Communication
Continue antibiotics per
Assessment / Plan
Clinical sepsis
Hypotension; pressors weaned to off.
Leukocytosis
Bacteremia (Streptococcus pyogenes)
SSTI with dermal gangrene of inferior portion of umbilical hernia
Acute renal failure
Elevated bilirubin
-Suspect secondary to underlying sepsis
Mild transaminitis
HTN
Morbid obesity
Umbilical hernia
Fatty liver disease
Recommendations:
Blood cultures with Streptococcus pyogenes.
Superficial wound culture swab reveals polymicrobial growth, including MSSA, Streptococcus pyogenes and others.
Continue with Zosyn. Dosing adjusted for improved renal function.
Continue clindamycin given group A strep bacteremia.
Repeat blood culture pending; NGTD
Trend white count and temperature curve.
����������������������������������������������������������
Chief Complaint
-: Clinical Sepsis, Cellulitis and Bacteremia
Subjective / Review of Systems
Patient seen and examined. Status post abdominal surgery with removal/repair of umbilical hernia. Currently feels well. Pain controlled.
Review of Systems: No Fever and No Chills
Vital Signs / Physical Exam
Vital Signs
Vital Signs
Temp Pulse Resp BP Pulse Ox
97.6 F 88 26 111/106 94
06/03/24 15:00 06/03/24 16:36 06/03/24 14:45 06/03/24 16:36 06/03/24 14:45
Physical Exam
Constitutional: No Acute Distress, Comfortable, Non-toxic and Obese
Cardiovascular: S1/S2; Negative S3/S4
Pulmonary: Non Labored
Gastrointestinal: Soft, Distended, Normal Bowel Sounds, No Rebound and Other (Abdominal incision dressed with gary VAC. No periwound erythema)
Neurological: Awake and Alert
Psychological: Calm
Objective Data
Lab Data
Lab Results
06/03/24 05:33
06/03/24 05:33
PT 17.3 Sec (11.4-14.6) H 06/01/24 03:30
INR 1.39 06/01/24 03:30
APTT 33.4 Sec (23.4-35.0) 06/01/24 03:30
Estimated Creat Clear 78 ml/min 06/03/24 05:33
Lactic Acid 1.7 mmol/L (0.7-2.0) 05/31/24 18:23
Total Bilirubin 1.5 mg/dl (0.2-1.3) H 06/03/24 05:33
AST 19 U/L (17-59) 06/03/24 05:33
ALT 34 U/L (0-50) 06/03/24 05:33
Alkaline Phosphatase 69 U/L (38-126) 06/03/24 05:33
Most recent labs reviewed.
Micro Results:
05/31/24 14:45 Blood Culture - Preliminary
Blood/Venous No Growth in 72 hours- Final report to follow
05/31/24 14:45 Blood Culture - Preliminary
Blood/Venous Streptococcus pyogenes
Gram Stain - Preliminary
06/02/24 10:14 Blood Culture - Preliminary
Blood/Venous No Growth in 24 hours- Final report to follow
05/31/24 15:03 Wound Culture - Final
Abdomen S aureus-Methicillin Sensitive
Escherichia coli
Enterobacter cloacae
Streptococcus pyogenes
Gram Stain - Final
05/31/24 21:04 MRSA Screen - Final
Nose No Methicillin Resistant Staphylococcus aureus isolated.
05/31/24 14:45 Urine Culture - Final
Urine NO GROWTH
Imaging:
06/01/2024 CXR (portable): Low lung volumes noted. No consolidation, effusion or pneumothorax noted. No acute osseous abnormality seen.
05/31/2024 CT abdomen/pelvis without contrast: Redemonstration of umbilical hernia with an abdominal wall defect measuring approximately 4.2 x 3.5 cm. Hernia now contains only fat whereas previously it contained a loop of transverse colon. There is
marked skin thickening overlying the hernia sac, new from prior exam. There is bilateral perinephric edema which is nonspecific. Evaluation for upper tract disease is limited without contrast. Please see full dictation for additional detail.
Film personally viewed.
[2024-06-03] MEDS: HEPARIN 5000 UNITS SC (21:52)
--- NOTE | 2024-06-03 23:34 | PTCARENOTE ---
Assumed care of pt at 1900. Pt is A/O x4, pleasant and cooperative with care. No c/o pain except for when he coughs, pt splinting his abd with a pillow which he states helps him, and denies the need for any pain medication so far. REBECCA dressing in
place to abd, dressing is C/D/I. See nursing shift assessment flowsheet for full physical assessment details. Pt is IMU level of care. SR on monitor, 80s-90s. SpO2 92-95% on 2LNC.
[2024-06-04] VITALS (9 sets, daily range): BP systolic 125–158; BP diastolic 86–113; BMI 39.8
[2024-06-04] MEDS: ZOSYN 100 IV ×3 (04:33→16:33)
[2024-06-04] MEDS: HEPARIN 5000 UNITS SC ×3 (04:34→20:46)
[2024-06-04 05:35] LABS: Hematocrit 42.4 % (39.0-52.0); Hemoglobin 14.4 g/dL (13.0-18.0); Mean Corpuscular Hgb 28.9 pg (27.0-31.0); Platelet Count 146 10^3/uL (130-400); Red Blood Cell Count 4.99 10^6/uL (4.70-6.10); Red Cell Dist. Width 13.6 % (11.5-14.5); White Blood Cell Count 13.4 10^3/uL (4.8-10.8)
[2024-06-04 05:44] LABS: ALT (SGPT) 43 U/L (0-50); AST (SGOT) 32 U/L (17-59); Albumin 2.5 g/dl (3.5-5.0); Alkaline Phosphatase 76 U/L (38-126); Blood Urea Nitrogen 32 mg/dl (9-20); Calcium 7.3 mg/dl (8.4-10.2); Carbon Dioxide 27 mmol/L (22-30); Chloride 103 mmol/L (98-107); Estimated Creatinine Clearance 88 ml/min; Glucose 118 mg/dl (70-99); Potassium 4.1 mmol/L (3.5-5.1); Sodium 135 mmol/L (135-145); Total Bilirubin 1.1 mg/dl (0.2-1.3); Total Protein 5.1 g/dl (6.3-8.2); eGFR 55.67
[2024-06-04] MEDS: CLEOCIN 50 IV ×3 (06:03→23:24)
[2024-06-04] MEDS: CARDIZEM CD 120 MG PO (07:30)
[2024-06-04] MEDS: ZESTRIL 10 MG PO (07:30)
[2024-06-04 08:14] LABS: % Basophils 0.3 % (0-2); % Eosinophils 0.2 % (0-6); % Immature Granulocytes 3.8 % (0-0.5); % Lymphocytes 14.2 % (20.5-51.1); % Monocytes 6.4 % (1.7-9.3); % Neutrophils 75.1 % (42.2-75.2); Absolute Immature Granulocytes 0.5 10^3/uL (0-0.05); Absolute Lymphocytes 1.9 10^3/uL (1.2-3.4); Absolute Monocytes 0.9 10^3/uL (0.1-0.6); Nucleated Red Blood Cells % 0 % (-)
--- NOTE | 2024-06-04 08:14 | W.PN.ID1 ---
Date of Service
Date of Service: June 04, 2024
Today's Communication
Continue current antibiotics.
Assessment / Plan
Clinical sepsis
Hypotension; pressors weaned to off.
Leukocytosis
Bacteremia (Streptococcus pyogenes)
SSTI with dermal gangrene of inferior portion of umbilical hernia
Acute renal failure
Elevated bilirubin
-Suspect secondary to underlying sepsis
Mild transaminitis
HTN
Morbid obesity
Umbilical hernia
Fatty liver disease
Recommendations:
Blood cultures with Streptococcus pyogenes.
Superficial wound culture swab reveals polymicrobial growth, including MSSA, Streptococcus pyogenes and others.
Continue with Zosyn.
On 72 hours of clindamycin clindamycin given group A strep bacteremia for toxin inhibition
Repeat blood culture pending; NGTD
Trend white count and temperature curve.
����������������������������������������������������������
Chief Complaint
-: Clinical Sepsis, Cellulitis and Bacteremia
Subjective / Review of Systems
Patient seen and examined. Feels well today. Pain controlled, and currently 07/14.
Review of Systems: No Fever and No Chills
Vital Signs / Physical Exam
Vital Signs
Vital Signs
Temp Pulse Resp BP Pulse Ox
97.6 F 76 17 148/110 86
06/04/24 07:35 06/04/24 06:00 06/04/24 06:00 06/04/24 06:00 06/04/24 06:00
Physical Exam
Constitutional: No Acute Distress, Comfortable, Non-toxic and Obese
Eyes: Sclera Anicteric
Cardiovascular: S1/S2; Negative S3/S4
Pulmonary: Non Labored
Gastrointestinal: Soft, Distended, Normal Bowel Sounds, No Rebound and Other (Abdominal incision dressed with gary VAC. No periwound erythema)
Skin: Negative Rash or Jaundice
Neurological: Awake and Alert
Psychological: Calm
Objective Data
Lab Data
Lab Results
06/04/24 04:33
06/04/24 04:33
PT 17.3 Sec (11.4-14.6) H 06/01/24 03:30
INR 1.39 06/01/24 03:30
APTT 33.4 Sec (23.4-35.0) 06/01/24 03:30
Estimated Creat Clear 88 ml/min 06/04/24 04:33
Lactic Acid 1.7 mmol/L (0.7-2.0) 05/31/24 18:23
Total Bilirubin 1.1 mg/dl (0.2-1.3) 06/04/24 04:33
AST 32 U/L (17-59) 06/04/24 04:33
ALT 43 U/L (0-50) 06/04/24 04:33
Alkaline Phosphatase 76 U/L (38-126) 06/04/24 04:33
Most recent labs reviewed.
Micro Results:
05/31/24 14:45 Blood Culture - Preliminary
Blood/Venous No Growth in 72 hours- Final report to follow
05/31/24 14:45 Blood Culture - Preliminary
Blood/Venous Streptococcus pyogenes
Gram Stain - Preliminary
06/02/24 10:14 Blood Culture - Preliminary
Blood/Venous No Growth in 24 hours- Final report to follow
05/31/24 15:03 Wound Culture - Final
Abdomen S aureus-Methicillin Sensitive
Escherichia coli
Enterobacter cloacae
Streptococcus pyogenes
Gram Stain - Final
05/31/24 21:04 MRSA Screen - Final
Nose No Methicillin Resistant Staphylococcus aureus isolated.
05/31/24 14:45 Urine Culture - Final
Urine NO GROWTH
Imaging:
06/01/2024 CXR (portable): Low lung volumes noted. No consolidation, effusion or pneumothorax noted. No acute osseous abnormality seen.
05/31/2024 CT abdomen/pelvis without contrast: Redemonstration of umbilical hernia with an abdominal wall defect measuring approximately 4.2 x 3.5 cm. Hernia now contains only fat whereas previously it contained a loop of transverse colon. There is
marked skin thickening overlying the hernia sac, new from prior exam. There is bilateral perinephric edema which is nonspecific. Evaluation for upper tract disease is limited without contrast. Please see full dictation for additional detail.
Film personally viewed.
--- NOTE | 2024-06-04 08:26 | PTCARENOTE ---
Pt AOx4, alert, conversive, pleasant. Pt placed on 2L NC overnight d/t hypoxia w/ sleep - tried pt on room air but still drops to 87% so left on 2L NC. C/O mild abd pain at surgical site. Midline abd REBECCA dressing clean/dry/intact. NSR w/ rate
in 70s on monitor. Indwelling herron w/ clear yellow output.
--- NOTE | 2024-06-04 12:07 | W.PN.HOSP.TC ---
Today's Communication/Plan
-
oral rate control
AC when cleared by surgery
IV Abx per ID
post-op care and diet per GS
PT/OT
Tx Tele
monitor US
Assessment / Plan
Assessment / Plan
Assessment:
Septic shock
- pressors were weaned off 06/02 AM
Cellulitis with dermal gangrene of inferior portion of umbilical hernia
Strep pyogenes bacteremia
- wound culture with MSSA, E. Coli, Enterobacter cloacae, strep pyogenes
- repeat blood cultures no growth to date
- ID following; continue Zosyn and Clindamycin
CONSTANCE, likely pre-renal from septic shock
Associated acute metabolic acidosis/lactic acidosis
- [place] in place for critical I/Os and CONSTANCE
- Cr 1.5 after IVF
New onset parox Rapid A.fib
- TSH normal
- Echo: Mildly reduced left ventricular systolic function. Left ventricular ejection fraction is 45%. Normal right ventricular size and function. No significant valve disease. Mildly dilated aortic root. Sinus of Valsalva measures 4.3 cm.
sinotubular junction measures 3.8 cm. and ascending aorta measures 3.9 cm.
- s/p IV Amiodarone.
- continue Cardizem
- anticoagulation when cleared by GS
- Cardiology following
Umbilical hernia
- CT: Re-demonstration of umbilical hernia with abdominal wall defect measuring approximately 4.2 x 3.5 cm, similar to prior. The hernia now contains only fat whereas previously it contained a loop of transverse colon. There is marked skin
thickening overlying the hernia sac, new from prior.
- s/p Open umbilical hernia pair with mesh; 6 cm maximal length 06/03
- diet: Fulls
- follow GS recs
Iatrogenic volume overload in setting of IVF
- consider IV diuretic prn doses
Acute hyponatremia
Acute hypokalemia
- monitor BMP. replete K as needed
Acute hypocalcemia
- corrected Ca normal with low albumin
Morbid obesity d/t excess calories
- weight loss encouraged
Essential HTN
- continue lisinopril
- monitor BPs
acute thrombocytopenia
- likely in setting of sepsis; resolved
bilateral upper extremity edema in setting of IVF
- await US to evaluate clots
DVT ppx: SC heparin for now
Code: Full
Anticipated Discharge: > 48 hours
Subjective/Interval History
-
Date of Service: June 04, 2024
resting comfortably
no complaints
Objective Data
-
Labs:
Laboratory Results
06/04/24
04:33
WBC 13.4 H
Hgb 14.4
Hct 42.4
Plt Count 146 D
Sodium 135
Potassium 4.1
Chloride 103
Carbon Dioxide 27
BUN 32 H
Creatinine 1.5 H
Glucose 118 H
Calcium 7.3 L
Total Bilirubin 1.1
AST 32
ALT 43
Alkaline Phosphatase 76
Vital Signs:
Vital Signs
Temp Pulse Resp BP Pulse Ox
97.6 F 77 21 147/105 93
06/04/24 07:35 06/04/24 10:00 06/04/24 10:00 06/04/24 09:36 06/04/24 09:36
I&O
06/03/24 06/04/24 06/05/24
06:59 06:59 06:59
Intake Total 3251.1 / 3251.1 2312 / 2312
Output Total 2600 / 2600 2275 / 2275
Balance 651.1 / 651.1 37 / 37
Physical Exam
-
General: No Apparent Distress
HEENT: Normocephalic and Atraumatic
Respiratory: Negative Wheezes
Cardiac: Regular Rhythm and S1/S2
GI: Soft and Nontender
Genito-urinary: No Costovertebral Tender
Musculoskeletal: Edema, Right Upper Extrem and Edema, Left Upper Extrem
Neuro: AO x 3
Hematologic / Lymphatic: No Lymphadenopathy
Psych: Calm
Data Reviewed
-
Total Time Spent with Patient (in minutes): 44
Labs: Labs Reviewed by me
--- NOTE | 2024-06-04 12:19 | W.PN.GS2 ---
Addendum entered and electronically signed by HARI Aivles 06/04/24 15:12:
POD #1 open UHR with Phasix mesh. Necrotic dermis and associated subcutaneous tissue/hernia sac excised and discarded
Original Note:
Today's Communication / Plan
-
OOB/ambulate
FLD
Assessment / Plan
-
53-year-old male presenting with septic shock, A-fib with RVR and CONSTANCE in the setting of a large chronically incarcerated umbilical hernia without strangulation but with open dermal ulceration and wounds and surrounding cellulitis as well as
Streptococcus bacteremia. Open skin wound over umbilical hernia with polymicrobial growth. UA dirty but culture negative for growth, herron placed for retention.
AFVSS
Slight increase in WBC post op, not unexpected
h/h stable
Tolerating clears
--[place]on as per primary team
--ABX as per ID
--Advance to FLD, once more robust bowel recovery will advance to solid diet
--Analgesics prn. Will add oral options
--OOB/Ambulate, increase activity. Pt/Ot consulted
--Continue REBECCA dressing
--If full anticoagulation planned, please hold until minimum of 72 hours post op
--VTE ppx with heparin sq and scds while in bed
Ok for transfer out of ICU from surgical standpoint
Subjective Data
-
Date of Service: June 04, 2024
Patient seen and examined at bedside with Dr Leahy. Denies n/v. No more hiccups. Not really passing gas as of yet, no BM. Sore to incision but manageable.
Objective Data
-
Intake and Output
06/03/24 06/04/24 06/05/24
06:59 06:59 06:59
Intake Total 3251.1 / 3251.1 2312 / 2312
Output Total 2600 / 2600 2275 / 2275
Balance 651.1 / 651.1 37 / 37
Intake:
Oral fluids 1340 / 1340
IV fluids (Total) 2585.1 / 2585.1 507 / 507
AMIO 50.1 / 50.1
Lr 1,000 ml @ 100 mls/hr IV . 2300 / 2300 0 / 0
Q10H SERGIO Rx#:[id number]
cardizem 235 / 235 7 / 7
normosol 500 / 500
IV piggybacks 666 / 666 465 / 465
Output:
Urine, [place] 2600 / 2600 2274
Vital Signs
Temp Pulse Resp BP Pulse Ox
97.6 F 77 21 147/105 93
06/04/24 07:35 06/04/24 10:00 06/04/24 10:00 06/04/24 09:36 06/04/24 09:36
Lab Results
06/04/24 04:33
06/04/24 04:33
Calcium 7.3 mg/dl (8.4-10.2) L 06/04/24 04:33
Phosphorus 3.1 mg/dl (2.5-4.5) 06/03/24 05:33
Magnesium 2.0 mg/dl (1.6-2.3) 06/03/24 05:33
Total Bilirubin 1.1 mg/dl (0.2-1.3) 06/04/24 04:33
AST 32 U/L (17-59) 06/04/24 04:33
ALT 43 U/L (0-50) 06/04/24 04:33
Alkaline Phosphatase 76 U/L (38-126) 06/04/24 04:33
Total Protein 5.1 g/dl (6.3-8.2) L 06/04/24 04:33
Albumin 2.5 g/dl (3.5-5.0) L 06/04/24 04:33
Physical Exam
-
NAD AAOx3
ABD: Soft, obese, nd
Incision to midline with intact REBECCA dressing
Patient has a herron catheter: Yes
--- NOTE | 2024-06-04 12:48 | PTCARENOTE ---
Pt has US of upper extremities d/t edema. US showed R cephalic vein superficial thrombus. Hospitalist made aware. Plan to do warm compresses to arm until we can start anticoagulation Thursday.
[2024-06-04] MEDS: LASIX 20 MG IV (13:48)
--- NOTE | 2024-06-04 15:18 | PTCARENOTE ---
Addendum entered by Timmy Tay RN 06/04/24 15:19:
Verbal report given to BRITTNI Rueda
Original Note:
Pt downgraded to TELE. Transferred to 2124 by PCT. Pt alert/conversive - able to walk to transport stretcher from bed.
--- NOTE | 2024-06-04 16:04 | W.PN.CD ---
Today's Communication / Plan
-
Switch diltiazem to metoprolol succinate 100 mg daily
Increase lisinopril to 20 mg daily
Impression / Plan
-
Impression/Plan: 53 y/o male with HTN and obesity, known umbilical hernia with associated skin breakdown admitted with septic shock and streptococcus pyogenes bacteremia associated with the overlying hernia skin breakdown, complicated by atrial
fibrillation with rapid ventricular response and mild cardiomyopathy, now back in NSR and s/p hernia repair (06/03).
#Septic shock/Streptococcus pyogenes bacteremia
-Acute, improving with antibiotics and hernia repair (06/03)
-This diagnosis is threat to life.
-Blood pressure improved, no longer requiring pressors.
-IV abx as per ID and primary team.
#Mild [facility] DIRECTOR
-New diagnosis. Echo shows LVEF 45% without regional wall motion abnormalities. No angina or evidence of congestive heart failure.
-Suspect this is due to his acute presentation and LV suppression from septic shock and atrial fibrillation, though other causes of NE[facility] DIRECTOR exist.
-Start Metoprolol succinate 100mg daily (also for afib)
-Increase lisinopril to 20mg daily
-Repeat echocardiogram in 3 months. If LVEF is still depressed, we will reconsider ischemic evaluation and additional GDMT.
#AFIB with RVR, resolved:
-Acute, paroxysmal in the setting of acute illness. Normal TSH.
-Initially on IV amiodarone due to hypotension. Transitioned to diltiazem gtt with improvement in BP. Cardioverted on diltiazem gtt.
-[id number] score = 1 (HTN).
-Switch diltiazem to metoprolol 100mg daily given mildly reduced EF
-Consider AC once safe from a surgical perspective
#Umbilical hernia
-S/p surgical debridement and hernia repair on 06/03
-General surgery following.
#HTN:
-Chronic, hypotensive on presentation, now recovering.
-Monitor and restart home medications as BP indicates, though I defer that to after his surgery.
#CONSTANCE:
-Improving.
-Creatinine was up to 6.7, now down to 1.7.
Subjective/Interval History:
Afib broke to sinus yesterday. IV dilt converted to PO. No afib overnight.
DATA:
CT Abdomen, 06/01/2024:
IMPRESSION:
1. Redemonstration of umbilical hernia with abdominal wall defect measuring approximately 4.2 x 3.5 cm, similar to prior. The hernia now contains only fat whereas previously it contained a loop of transverse colon. There is marked skin thickening
overlying the hernia sac, new from prior.
2. Bilateral perinephric edema, nonspecific. Evaluation for upper urinary tract infection limited without contrast.
Transthoracic echocardiogram, 06/02/2024:
CONCLUSIONS
Contrast was used. Rhythm is A fib with RVR.
Mildly reduced left ventricular systolic function. Left ventricular ejection
fraction is 45%.
Normal right ventricular size and function.
No significant valve disease.
Mildly dilated aortic root. Sinus of Valsalva measures 4.3 cm. , sinotubular
junction measures 3.8 cm. , and ascending aorta measures 3.9 cm.
No prior study available for comparison.
Physical Exam
Vital Signs/Labs
Vital Signs
Temp Pulse Resp BP Pulse Ox
98.2 F 88 20 152/104 95
06/04/24 15:56 06/04/24 15:56 06/04/24 15:56 06/04/24 15:56 06/04/24 15:56
06/03/24 06/04/24 06/05/24
06:59 06:59 06:59
Actual Weight 143.7 kg 144.4 kg
06/04/24 04:33
06/04/24 04:33
PT 17.3 Sec (11.4-14.6) H 06/01/24 03:30
INR 1.39 06/01/24 03:30
APTT 33.4 Sec (23.4-35.0) 06/01/24 03:30
Magnesium 2.0 mg/dl (1.6-2.3) 06/03/24 05:33
Physical Exam
Constitutional: No acute distress and Comfortable
Cardiovascular: Rhythm & rate is regular, Pedal edema is absent, S1S2 is normal and Murmur/rub/gallop absent
Respiratory: Respiratory effort normal and Lungs clear to auscul.
Neuro/Psych: AO x 3
Data Reviewed
-
Date of Service: June 04, 2024
Medical Decision Making: Reviewed Test Results, Independent Historian Assessment, Test Interpretation and Review of Case with other Provider
EKG: Tracing Personally Visualized and interpreted
Echo: Report Reviewed by me
Labs: Labs Reviewed by me
[2024-06-05] VITALS (9 sets, daily range): BP systolic 138–167; BP diastolic 93–121; PULSE 68–71; O2SAT 96; BMI 39.0
[2024-06-05] MEDS: ZOSYN 100 IV ×5 (00:10→22:57)
[2024-06-05] MEDS: HEPARIN 5000 UNITS SC ×3 (04:59→19:57)
[2024-06-05 05:48] LABS: % Basophils 0.8 % (0-2); % Eosinophils 2.1 % (0-6); % Immature Granulocytes 7.3 % (0-0.5); % Lymphocytes 20.3 % (20.5-51.1); % Monocytes 9.5 % (1.7-9.3); Absolute Basophils 0.1 10^3/uL (0-0.2); Absolute Eosinophils 0.3 10^3/uL (0-0.7); Absolute Immature Granulocytes 0.9 10^3/uL (0-0.05); Absolute Lymphocytes 2.4 10^3/uL (1.2-3.4); Absolute Monocytes 1.1 10^3/uL (0.1-0.6); Absolute Neutrophils 7.2 10^3/uL (1.4-6.5); Hematocrit 40.8 % (39.0-52.0); Hemoglobin 14.5 g/dL (13.0-18.0); Mean Corp Hgb Conc. 35.5 g/dL (33.0-37.0); Mean Corpuscular Hgb 29.7 pg (27.0-31.0); Mean Corpuscular Volume 83.6 fL (80.0-94.0); Mean Platelet Volume 10.2 fL (7.4-10.4); Nucleated Red Blood Cells % 0 % (-); Platelet Count 184 10^3/uL (130-400); Red Blood Cell Count 4.88 10^6/uL (4.70-6.10); Red Cell Dist. Width 13.2 % (11.5-14.5)
[2024-06-05 06:03] LABS: ALT (SGPT) 82 U/L (0-50); AST (SGOT) 63 U/L (17-59); Albumin 2.5 g/dl (3.5-5.0); Alkaline Phosphatase 82 U/L (38-126); Blood Urea Nitrogen 27 mg/dl (9-20); Calcium 7.7 mg/dl (8.4-10.2); Carbon Dioxide 30 mmol/L (22-30); Chloride 101 mmol/L (98-107); Estimated Creatinine Clearance 88 ml/min; Glucose 101 mg/dl (70-99); Potassium 3.4 mmol/L (3.5-5.1); Sodium 135 mmol/L (135-145); Total Bilirubin 1.4 mg/dl (0.2-1.3); Total Protein 5.4 g/dl (6.3-8.2); eGFR 55.67
[2024-06-05] MEDS: CLEOCIN 50 IV (06:28)
[2024-06-05] MEDS: TOPROL XL 100 MG PO (08:28)
[2024-06-05] MEDS: ZESTRIL 20 MG PO (08:29)
--- NOTE | 2024-06-05 10:08 | W.PN.GS2 ---
Today's Communication / Plan
-
FLD with supplements
Encourage OOB/activity
Assessment / Plan
-
53-year-old male presenting with septic shock, A-fib with RVR and CONSTANCE in the setting of a large chronically incarcerated umbilical hernia without strangulation but with open dermal ulceration and wounds and surrounding cellulitis as well as
Streptococcus bacteremia. Open skin wound over umbilical hernia with polymicrobial growth. UA dirty but culture negative for growth, herron placed for retention.
POD #2 open UHR with Phasix mesh. Necrotic dermis and associated subcutaneous tissue/hernia sac excised and discarded, REBECCA drain in place
AFVSS
WBC trending down
h/h stable
Tolerating fulls but without much PO intake, hiccups today
--Herron as per primary team
--ABX as per ID
--Continue FLD with supplements, once more robust bowel recovery will advance to solid diet
--Analgesics prn
--OOB/Ambulate, increase activity. Pt/Ot consulted
--Continue REBECCA dressing
--If full anticoagulation planned, ok to start tentatively tomorrow night if h/h remains stable.
--VTE ppx with heparin sq and scds while in bed
Subjective Data
-
Date of Service: June 05, 2024
Objective Data
-
Intake and Output
06/04/24 06/05/24 06/06/24
06:59 06:59 06:59
Intake Total 2312 / 2312 580 / 580
Output Total 2275 / 2275 4100 / 4100
Balance 37 / 37 -3520 / -3520
Intake:
Oral fluids 1340 / 1340 480 / 480
IV fluids (Total) 507 / 507
Lr 1,000 ml @ 100 mls/hr IV . 0 / 0
Q10H SERGIO Rx#:[id number]
cardizem 7 / 7
normosol 500 / 500
IV piggybacks 465 / 465 100 / 100
Output:
Urine, Herron 2275 / 2275 2400 / 2400
Urine, Voided 1700 / 1700
Vital Signs
Temp Pulse Resp BP Pulse Ox
97.4 F 80 18 152/105 96
06/05/24 07:30 06/05/24 08:29 06/05/24 07:30 06/05/24 08:29 06/05/24 07:30
Lab Results
06/05/24 05:00
06/05/24 05:00
Calcium 7.7 mg/dl (8.4-10.2) L 06/05/24 05:00
Phosphorus 3.1 mg/dl (2.5-4.5) 06/03/24 05:33
Magnesium 2.0 mg/dl (1.6-2.3) 06/03/24 05:33
Total Bilirubin 1.4 mg/dl (0.2-1.3) H 06/05/24 05:00
AST 63 U/L (17-59) H 06/05/24 05:00
ALT 82 U/L (0-50) H 06/05/24 05:00
Alkaline Phosphatase 82 U/L (38-126) 06/05/24 05:00
Total Protein 5.4 g/dl (6.3-8.2) L 06/05/24 05:00
Albumin 2.5 g/dl (3.5-5.0) L 06/05/24 05:00
Physical Exam
-
NAD AAOx3
ABD: Soft, obese, nd
Incision to midline with intact REBECCA dressing
Patient has a herron catheter: Yes
--- NOTE | 2024-06-05 11:41 | W.PN.ID1 ---
Date of Service
Date of Service: June 05, 2024
Today's Communication
Continue Zosyn
Assessment / Plan
Clinical sepsis
Hypotension; resolved.
Leukocytosis
Bacteremia (Streptococcus pyogenes)
SSTI with dermal gangrene of inferior portion of umbilical hernia
Acute renal failure
Elevated bilirubin
-Suspect secondary to underlying sepsis
Mild transaminitis
HTN
Morbid obesity
Umbilical hernia
Fatty liver disease
Recommendations:
Blood cultures with Streptococcus pyogenes.
Superficial wound culture swab reveals polymicrobial growth, including MSSA, Streptococcus pyogenes and others.
Continue with Zosyn. (d#6)
Status post course of clindamycin for toxin inhibition.
Repeat blood culture pending; NGTD
Trend white count and temperature curve.
����������������������������������������������������������
Chief Complaint
-: Clinical Sepsis, Cellulitis and Bacteremia
Subjective / Review of Systems
Review of Systems: No Fever, No Chills and No Abdominal Pain
Vital Signs / Physical Exam
Vital Signs
Vital Signs
Temp Pulse Resp BP Pulse Ox
97.4 F 80 18 152/105 96
06/05/24 07:30 06/05/24 08:29 06/05/24 07:30 06/05/24 08:29 06/05/24 07:30
Physical Exam
Constitutional: No Acute Distress, Comfortable and Non-toxic
Eyes: Sclera Anicteric
Cardiovascular: S1/S2; Negative S3/S4
Pulmonary: Non Labored
Gastrointestinal: Soft, Distended, Normal Bowel Sounds, No Rebound and Other (Abdominal incision dressed with gary VAC. No periwound erythema)
Skin: Negative Rash or Jaundice
Neurological: Awake and Alert
Psychological: Calm
Objective Data
Lab Data
Lab Results
06/05/24 05:00
06/05/24 05:00
PT 17.3 Sec (11.4-14.6) H 06/01/24 03:30
INR 1.39 06/01/24 03:30
APTT 33.4 Sec (23.4-35.0) 06/01/24 03:30
Estimated Creat Clear 88 ml/min 06/05/24 05:00
Lactic Acid 1.7 mmol/L (0.7-2.0) 05/31/24 18:23
Total Bilirubin 1.4 mg/dl (0.2-1.3) H 06/05/24 05:00
AST 63 U/L (17-59) H 06/05/24 05:00
ALT 82 U/L (0-50) H 06/05/24 05:00
Alkaline Phosphatase 82 U/L (38-126) 06/05/24 05:00
Most recent labs reviewed.
Micro Results:
06/02/24 10:14 Blood Culture - Preliminary
Blood/Venous No Growth in 72 hours- Final report to follow
05/31/24 14:45 Blood Culture - Preliminary
Blood/Venous No Growth in 4 days- Final report to follow
05/31/24 14:45 Blood Culture - Preliminary
Blood/Venous Streptococcus pyogenes
Gram Stain - Preliminary
05/31/24 15:03 Wound Culture - Final
Abdomen S aureus-Methicillin Sensitive
Escherichia coli
Enterobacter cloacae
Streptococcus pyogenes
Gram Stain - Final
05/31/24 21:04 MRSA Screen - Final
Nose No Methicillin Resistant Staphylococcus aureus isolated.
05/31/24 14:45 Urine Culture - Final
Urine NO GROWTH
Imaging:
06/01/2024 CXR (portable): Low lung volumes noted. No consolidation, effusion or pneumothorax noted. No acute osseous abnormality seen.
05/31/2024 CT abdomen/pelvis without contrast: Redemonstration of umbilical hernia with an abdominal wall defect measuring approximately 4.2 x 3.5 cm. Hernia now contains only fat whereas previously it contained a loop of transverse colon. There is
marked skin thickening overlying the hernia sac, new from prior exam. There is bilateral perinephric edema which is nonspecific. Evaluation for upper tract disease is limited without contrast. Please see full dictation for additional detail.
Film personally viewed.
--- NOTE | 2024-06-05 11:50 | CM ---
Addendum entered by Claribel Lan 06/05/24 12:25:
Spoke with pt - updated of medication pricing
Upon d/c pt plans to stay with his parents in [facility]
Declining VN at this time
Plan - anticipate home with family support when medically ready
Original Note:
CM consult - med pricing -
Medication pricing for Eliquis 5mg po BID - 30 day supply
Spoke with pharmacy rep at [facility] - no cost for medication per safety representative
--- NOTE | 2024-06-05 14:41 | W.PN.HOSP.TC ---
Today's Communication/Plan
-
continue current plan
Coreg instead of Metoprolol
Assessment / Plan
Assessment / Plan
Assessment:
Septic shock
- pressors were weaned off 06/02 AM
Cellulitis with dermal gangrene of inferior portion of umbilical hernia
Strep pyogenes bacteremia
- wound culture with MSSA, E. Coli, Enterobacter cloacae, strep pyogenes
- repeat blood cultures no growth to date
- ID following; continue Zosyn (day 6) and Clindamycin.
CONSTANCE, likely pre-renal from septic shock
Associated acute metabolic acidosis/lactic acidosis
- [place] in place for critical I/Os and CONSTANCE
- Cr 1.5 after IVF
New onset parox Rapid A.fib
- TSH normal
- Echo: Mildly reduced left ventricular systolic function. Left ventricular ejection fraction is 45%. Normal right ventricular size and function. No significant valve disease. Mildly dilated aortic root. Sinus of Valsalva measures 4.3 cm.
sinotubular junction measures 3.8 cm. and ascending aorta measures 3.9 cm.
- s/p IV Amiodarone.
- continue rate control with Coreg 25mg BID
- anticoagulation when cleared by GS likely tomorrow
- Cardiology following
Umbilical hernia
- CT: Re-demonstration of umbilical hernia with abdominal wall defect measuring approximately 4.2 x 3.5 cm, similar to prior. The hernia now contains only fat whereas previously it contained a loop of transverse colon. There is marked skin
thickening overlying the hernia sac, new from prior.
- s/p Open umbilical hernia pair with mesh; 6 cm maximal length 06/03
- diet: Fulls with supplements
- follow GS recs
Iatrogenic volume overload in setting of IVF
- consider IV diuretic prn doses
Acute hyponatremia
Acute hypokalemia
- monitor BMP. replete K as needed
Acute hypocalcemia
- corrected Ca normal with low albumin
Morbid obesity d/t excess calories
- weight loss encouraged
Essential HTN
- continue lisinopril to 20mg
- monitor BPs
acute thrombocytopenia
- likely in setting of sepsis; resolved
bilateral upper extremity edema in setting of IVF
- US: Right cephalic vein thrombus (superficial venous system). No evidence of deep venous thrombosis of the right upper extremity.
- warm compresses until systemic anticoagulation available
DVT ppx: SC heparin for now
Code: Full
Anticipated Discharge: 24 - 48 hours
Subjective/Interval History
-
Date of Service: June 05, 2024
tolerating full liquids
Objective Data
-
Labs:
Laboratory Results
06/05/24
05:00
WBC 12.0 H
Hgb 14.5
Hct 40.8
Plt Count 184 D
Sodium 135
Potassium 3.4 L
Chloride 101
Carbon Dioxide 30
BUN 27 H
Creatinine 1.5 H
Glucose 101 H
Calcium 7.7 L
Total Bilirubin 1.4 H
AST 63 H
ALT 82 H
Alkaline Phosphatase 82
Vital Signs:
Vital Signs
Temp Pulse Resp BP Pulse Ox
98.5 F 75 18 155/112 93
06/05/24 11:57 06/05/24 11:57 06/05/24 11:57 06/05/24 11:57 06/05/24 11:57
I&O
06/04/24 06/05/24 06/06/24
06:59 06:59 06:59
Intake Total 2312 / 2312 580 / 580
Output Total 2275 / 2275 4100 / 4100
Balance 37 / 37 -3520 / -3520
Physical Exam
-
General: No Apparent Distress
HEENT: Normocephalic and Atraumatic
Respiratory: Negative Wheezes
Cardiac: Regular Rhythm and S1/S2
GI: Soft and Nontender
Genito-urinary: No Costovertebral Tender
Musculoskeletal: No Edema
Neuro: AO x 3
Hematologic / Lymphatic: No Lymphadenopathy
Psych: Calm
Data Reviewed
-
Total Time Spent with Patient (in minutes): 42
Labs: Labs Reviewed by me
[2024-06-05] MEDS: COREG 12.5 MG PO (15:11)
[2024-06-05] MEDS: COREG 25 MG PO (19:57)
[2024-06-06] VITALS (7 sets, daily range): BP systolic 148–180; BP diastolic 104–121; BMI 38.5
[2024-06-06] MEDS: HEPARIN 5000 UNITS SC ×2 (03:25→11:07)
[2024-06-06] MEDS: ZOSYN 100 IV ×2 (03:25→09:13)
[2024-06-06 07:50] LABS: % Basophils 0.9 % (0-2); % Eosinophils 2.3 % (0-6); % Immature Granulocytes 10.6 % (0-0.5); % Lymphocytes 20.6 % (20.5-51.1); % Neutrophils 58.6 % (42.2-75.2); Absolute Basophils 0.1 10^3/uL (0-0.2); Absolute Eosinophils 0.3 10^3/uL (0-0.7); Absolute Immature Granulocytes 1.5 10^3/uL (0-0.05); Absolute Lymphocytes 2.9 10^3/uL (1.2-3.4); Absolute Neutrophils 8.4 10^3/uL (1.4-6.5); Hematocrit 42.2 % (39.0-52.0); Hemoglobin 14.8 g/dL (13.0-18.0); Mean Corp Hgb Conc. 35.1 g/dL (33.0-37.0); Mean Corpuscular Hgb 29.8 pg (27.0-31.0); Mean Corpuscular Volume 84.9 fL (80.0-94.0); Nucleated Red Blood Cells % 0 % (-); Red Blood Cell Count 4.97 10^6/uL (4.70-6.10); Red Cell Dist. Width 13.2 % (11.5-14.5); White Blood Cell Count 14.3 10^3/uL (4.8-10.8)
[2024-06-06 08:03] LABS: ALT (SGPT) 65 U/L (0-50); AST (SGOT) 35 U/L (17-59); Albumin 2.7 g/dl (3.5-5.0); Alkaline Phosphatase 84 U/L (38-126); Blood Urea Nitrogen 25 mg/dl (9-20); Carbon Dioxide 31 mmol/L (22-30); Chloride 98 mmol/L (98-107); Estimated Creatinine Clearance 93 ml/min; Glucose 107 mg/dl (70-99); Potassium 3.6 mmol/L (3.5-5.1); Sodium 135 mmol/L (135-145); Total Bilirubin 1.2 mg/dl (0.2-1.3); Total Protein 5.8 g/dl (6.3-8.2); eGFR > 60.00
[2024-06-06 08:42] LABS: Mean Platelet Volume 10.5 fL (7.4-10.4); Platelet Count 223 10^3/uL (130-400)
[2024-06-06 08:43] LABS: Absolute Neutrophils -Man Diff 10.8 10^3/uL (1.4-6.5); Band Neutrophils 2 % (0-3); Lymphocytes 14 % (20-51); Metamyelocytes 2 % (-); Monocytes 4 % (2-9); Myelocytes 4 % (-); Normal RBC Morphology Yes; Platelets Checked Yes; Segmented Neutrophils 74 % (42-75)
[2024-06-06 08:44] LABS: Total Cells Counted 100
--- NOTE | 2024-06-06 08:54 | W.PN.CD ---
Today's Communication / Plan
-
cont coreg 25mg bid
increase lisinopril to 40mg daily
tentative plan to start eliquis 5mg bid this evening if team agrees
Impression / Plan
-
Impression/Plan: 53 y/o male with HTN and obesity, known umbilical hernia with associated skin breakdown admitted with septic shock and streptococcus pyogenes bacteremia associated with the overlying hernia skin breakdown, complicated by atrial
fibrillation with rapid ventricular response and mild cardiomyopathy, now back in NSR and s/p hernia repair (06/03).
#Septic shock/Streptococcus pyogenes bacteremia
-improved with antibiotics and hernia repair (06/03)
-abx as per ID and primary team.
#Mild FIRST HELPER
-New diagnosis. Echo shows LVEF 45% without regional wall motion abnormalities. No angina or evidence of congestive heart failure.
-Suspect this is due to his acute presentation and LV suppression from septic shock and atrial fibrillation, though other causes of FIRST HELPER exist. (suspected NICM)
-cont coreg 25mg bid
-Increase lisinopril to 40mg daily
-Repeat echocardiogram in 3 months. If LVEF is still depressed, we will reconsider ischemic evaluation and additional GDMT.
#AFIB with RVR, resolved:
-Acute, paroxysmal in the setting of acute illness. Normal TSH.
-Initially on IV amiodarone due to hypotension. Now on beta obdulia
-[id number] score = 1 (HTN).
-tentative plan to start eliquis 5mg bid this evening if team agrees
#HTN:
-Chronic, hypotensive on presentation, now recovering.
-titrating meds as above
#CONSTANCE:
-Improving. May have CKD at baseline, unknown stage
-Creatinine was up to 6.7, now down to 1.4.
DATA:
CT Abdomen, 06/01/2024:
IMPRESSION:
1. Redemonstration of umbilical hernia with abdominal wall defect measuring approximately 4.2 x 3.5 cm, similar to prior. The hernia now contains only fat whereas previously it contained a loop of transverse colon. There is marked skin thickening
overlying the hernia sac, new from prior.
2. Bilateral perinephric edema, nonspecific. Evaluation for upper urinary tract infection limited without contrast.
Transthoracic echocardiogram, 06/02/2024:
CONCLUSIONS
Contrast was used. Rhythm is A fib with RVR.
Mildly reduced left ventricular systolic function. Left ventricular ejection
fraction is 45%.
Normal right ventricular size and function.
No significant valve disease.
Mildly dilated aortic root. Sinus of Valsalva measures 4.3 cm. , sinotubular
junction measures 3.8 cm. , and ascending aorta measures 3.9 cm.
No prior study available for comparison.
Physical Exam
Vital Signs/Labs
Vital Signs
Temp Pulse Resp BP Pulse Ox
98.0 F 69 18 160/109 94
06/06/24 07:54 06/06/24 07:54 06/06/24 07:54 06/06/24 07:54 06/06/24 07:54
06/05/24 06/06/24 06/07/24
06:59 06:59 06:59
Actual Weight 141.521 kg 139.888 kg
06/06/24 06:17
06/06/24 06:17
PT 17.3 Sec (11.4-14.6) H 06/01/24 03:30
INR 1.39 06/01/24 03:30
APTT 33.4 Sec (23.4-35.0) 06/01/24 03:30
Magnesium 2.0 mg/dl (1.6-2.3) 06/03/24 05:33
Physical Exam
Constitutional: No acute distress and Comfortable
EENT: Moist mucous membranes
Cardiovascular: Rhythm & rate is regular, Pedal edema is absent, JVD pressure is normal and Systolic murmur absent
Respiratory: Respiratory effort normal
Neuro/Psych: AO x 3
Data Reviewed
-
Date of Service: June 06, 2024
EKG: Other (Tele: SR 70s-80s, brief SVT)
Labs: Labs Reviewed by me
[2024-06-06] MEDS: COREG 25 MG PO ×2 (09:13→19:16)
[2024-06-06] MEDS: ZESTRIL 40 MG PO (09:17)
[2024-06-06] MEDS: ZESTRIL PO (09:18)
--- NOTE | 2024-06-06 09:43 | W.PN.GS2 ---
Today's Communication / Plan
-
Regular diet
Okay to start anticoagulation
Rebecca dressing in place
Assessment / Plan
-
53-year-old male presenting with septic shock, A-fib with RVR and CONSTANCE in the setting of a large chronically incarcerated umbilical hernia without strangulation but with open dermal ulceration and wounds and surrounding cellulitis as well as
Streptococcus bacteremia. Open skin wound over umbilical hernia with polymicrobial growth. UA dirty but culture negative for growth, herron placed for retention.
POD #3 open UHR with Phasix mesh. Necrotic dermis and associated subcutaneous tissue/hernia sac excised and discarded, REBECCA drain in place
AFVSS
WBC trending down
h/h stable
Tolerating fulls but without much PO intake, hiccups today
--Herron out
--ABX as per ID
--advance to a regular diet
--Analgesics prn
--OOB/Ambulate, increase activity. Pt/Ot consulted
--Continue REBECCA dressing
--If full anticoagulation planned, ok to start tentatively tonight if h/h remains stable.
--VTE ppx with heparin sq and scds while in bed
Time Spent
Total Time Spent with Patient (in minutes): 20
Subjective Data
-
Date of Service: June 06, 2024
Interval Events:
No acute events overnight. Slept well. Pain Controlled. Denies Nausea/Vomiting, +bowel function. Tolerating diet.
Objective Data
-
Intake and Output
06/05/24 06/06/24 06/07/24
06:59 06:59 06:59
Intake Total 580 / 580 1680 / 1680
Output Total 4100 / 4100 3025 / 3025
Balance -3520 / -3520 -1345 / -1345
Intake:
Oral fluids 480 / 480 1280 / 1280
IV piggybacks 100 / 100 400 / 400
Output:
Urine, Herron 2400 / 2400 3025 / 3025
Urine, Voided 1700 / 1700
Other:
Number of approximated MODERATE 1
amounts of urine
Vital Signs
Temp Pulse Resp BP Pulse Ox
98.0 F 69 18 160/109 94
06/06/24 07:54 06/06/24 09:17 06/06/24 07:54 06/06/24 09:17 06/06/24 09:34
Lab Results
06/06/24 06:17
06/06/24 06:17
Calcium 8.0 mg/dl (8.4-10.2) L 06/06/24 06:17
Phosphorus 3.1 mg/dl (2.5-4.5) 06/03/24 05:33
Magnesium 2.0 mg/dl (1.6-2.3) 06/03/24 05:33
Total Bilirubin 1.2 mg/dl (0.2-1.3) 06/06/24 06:17
AST 35 U/L (17-59) 06/06/24 06:17
ALT 65 U/L (0-50) H 06/06/24 06:17
Alkaline Phosphatase 84 U/L (38-126) 06/06/24 06:17
Total Protein 5.8 g/dl (6.3-8.2) L 06/06/24 06:17
Albumin 2.7 g/dl (3.5-5.0) L 06/06/24 06:17
Physical Exam
-
GENERAL/NEURO: Awake, Alert, no distress
CHEST: Unlabored breathing on RA
ABDOMEN: Soft, Non-Tender, Non-Distended, dressing in place
Patient has a herron catheter: No
Patient has a central line: No
--- NOTE | 2024-06-06 13:27 | CM ---
Patient seen at bedside with mom
PT recommends HH
REBECCA dressing cont
Patient will be staying with his parents in [place]
Referral added in [facility] for [facility]
PLAN: Home with VN, once agency accepts
--- NOTE | 2024-06-06 13:34 | W.PN.HOSP.TC ---
Today's Communication/Plan
-
continue Augmentin
start Eliquis
DC planning to home
Assessment / Plan
Assessment / Plan
Assessment:
Septic shock
- pressors were weaned off 06/02 AM
Cellulitis with dermal gangrene of inferior portion of umbilical hernia
Strep pyogenes bacteremia
- wound culture with MSSA, E. Coli, Enterobacter cloacae, strep pyogenes
- repeat blood cultures no growth to date
- ID following; continue Abx as Augmentin, day 7 total
- s/p Clindamycin course
CONSTANCE, likely pre-renal from septic shock
Associated acute metabolic acidosis/lactic acidosis
- Cr 1.4
New onset parox Rapid A.fib
- TSH normal
- Echo: Mildly reduced left ventricular systolic function. Left ventricular ejection fraction is 45%. Normal right ventricular size and function. No significant valve disease. Mildly dilated aortic root. Sinus of Valsalva measures 4.3 cm.
sinotubular junction measures 3.8 cm. and ascending aorta measures 3.9 cm.
- s/p IV Amiodarone.
- continue rate control with Coreg 25mg BID
- start Eliquis 5mg BID
- Cardiology following
Umbilical hernia
- CT: Re-demonstration of umbilical hernia with abdominal wall defect measuring approximately 4.2 x 3.5 cm, similar to prior. The hernia now contains only fat whereas previously it contained a loop of transverse colon. There is marked skin
thickening overlying the hernia sac, new from prior.
- s/p Open umbilical hernia pair with mesh; 6 cm maximal length 06/03
- diet: regular diet
- REBECCA dressing/drain in place
- follow GS recs
Iatrogenic volume overload in setting of IVF
- consider IV diuretic prn doses
Acute hyponatremia
Acute hypokalemia
- monitor BMP. replete K as needed
Acute hypocalcemia
- corrected Ca normal with low albumin
Morbid obesity d/t excess calories
- weight loss encouraged
Essential HTN
- continue lisinopril 40mg daily, continue Coreg 25mg BID
- monitor BPs
acute thrombocytopenia
- likely in setting of sepsis; resolved
bilateral upper extremity edema in setting of IVF
- US: Right cephalic vein thrombus (superficial venous system). No evidence of deep venous thrombosis of the right upper extremity.
- start Eliquis tonight
DVT ppx: Eliquis
Code: Full
Anticipated Discharge: > 48 hours
Subjective/Interval History
-
Date of Service: June 06, 2024
resting comfortably, no complaints
Objective Data
-
Labs:
Laboratory Results
06/06/24
06:17
WBC 14.3 H
Hgb 14.8
Hct 42.2
Plt Count 223 D
Sodium 135
Potassium 3.6
Chloride 98
Carbon Dioxide 31 H
BUN 25 H
Creatinine 1.4 H
Glucose 107 H
Calcium 8.0 L
Total Bilirubin 1.2
AST 35
ALT 65 H
Alkaline Phosphatase 84
Vital Signs:
Vital Signs
Temp Pulse Resp BP Pulse Ox
98.3 F 68 18 148/104 94
06/06/24 11:50 06/06/24 11:50 06/06/24 11:50 06/06/24 11:50 06/06/24 11:50
I&O
06/05/24 06/06/24 06/07/24
06:59 06:59 06:59
Intake Total 580 / 580 1680 / 1680
Output Total 4100 / 4100 3025 / 3025
Balance -3520 / -3520 -1345 / -1345
Physical Exam
-
General: No Apparent Distress
HEENT: Normocephalic and Atraumatic
Respiratory: Negative Wheezes
Cardiac: Regular Rhythm and S1/S2
GI: Soft and Nontender
Genito-urinary: No Costovertebral Tender
Musculoskeletal: No Edema
Neuro: AO x 3
Hematologic / Lymphatic: No Lymphadenopathy
Psych: Calm
Data Reviewed
-
Total Time Spent with Patient (in minutes): 42
Labs: Labs Reviewed by me
--- NOTE | 2024-06-06 13:48 | W.PN.ID1 ---
Date of Service
Date of Service: June 06, 2024
Today's Communication
Narrow to Augmentin.
Assessment / Plan
Clinical sepsis; resolved
Hypotension; resolved.
Leukocytosis
Bacteremia (Streptococcus pyogenes)
SSTI with dermal gangrene of inferior portion of umbilical hernia
Acute renal failure
Elevated bilirubin
-Suspect secondary to underlying sepsis
Mild transaminitis
HTN
Morbid obesity
Umbilical hernia
Fatty liver disease
Recommendations:
Blood cultures with Streptococcus pyogenes. Repeat blood cultures without growth.
Narrow antibiotics to Augmentin 875 mg p.o. twice daily
Trend white count and temperature curve.
����������������������������������������������������������
Chief Complaint
-: Clinical Sepsis, Cellulitis and Bacteremia
Subjective / Review of Systems
Review of Systems: No Fever and No Chills
Vital Signs / Physical Exam
Vital Signs
Vital Signs
Temp Pulse Resp BP Pulse Ox
98.3 F 68 18 148/104 94
06/06/24 11:50 06/06/24 11:50 06/06/24 11:50 06/06/24 11:50 06/06/24 11:50
Physical Exam
Constitutional: No Acute Distress, Comfortable and Non-toxic
Eyes: Sclera Anicteric
Cardiovascular: S1/S2; Negative S3/S4
Pulmonary: Non Labored
Gastrointestinal: Soft, Distended, Normal Bowel Sounds, No Rebound and Other (Abdominal incision dressed with gary VAC. No periwound erythema)
Skin: Negative Rash or Jaundice
Neurological: Awake and Alert
Psychological: Calm
Objective Data
Lab Data
Lab Results
06/06/24 06:17
06/06/24 06:17
PT 17.3 Sec (11.4-14.6) H 06/01/24 03:30
INR 1.39 06/01/24 03:30
APTT 33.4 Sec (23.4-35.0) 06/01/24 03:30
Estimated Creat Clear 93 ml/min 06/06/24 06:17
Lactic Acid 1.7 mmol/L (0.7-2.0) 05/31/24 18:23
Total Bilirubin 1.2 mg/dl (0.2-1.3) 06/06/24 06:17
AST 35 U/L (17-59) 06/06/24 06:17
ALT 65 U/L (0-50) H 06/06/24 06:17
Alkaline Phosphatase 84 U/L (38-126) 06/06/24 06:17
Most recent labs reviewed.
Micro Results:
06/02/24 10:14 Blood Culture - Preliminary
Blood/Venous No Growth in 4 days- Final report to follow
05/31/24 14:45 Blood Culture - Final
Blood/Venous No Growth - Final Report
05/31/24 14:45 Blood Culture - Preliminary
Blood/Venous Streptococcus pyogenes
Gram Stain - Preliminary
05/31/24 15:03 Wound Culture - Final
Abdomen S aureus-Methicillin Sensitive
Escherichia coli
Enterobacter cloacae
Streptococcus pyogenes
Gram Stain - Final
05/31/24 21:04 MRSA Screen - Final
Nose No Methicillin Resistant Staphylococcus aureus isolated.
05/31/24 14:45 Urine Culture - Final
Urine NO GROWTH
Imaging:
06/01/2024 CXR (portable): Low lung volumes noted. No consolidation, effusion or pneumothorax noted. No acute osseous abnormality seen.
05/31/2024 CT abdomen/pelvis without contrast: Redemonstration of umbilical hernia with an abdominal wall defect measuring approximately 4.2 x 3.5 cm. Hernia now contains only fat whereas previously it contained a loop of transverse colon. There is
marked skin thickening overlying the hernia sac, new from prior exam. There is bilateral perinephric edema which is nonspecific. Evaluation for upper tract disease is limited without contrast. Please see full dictation for additional detail.
Film personally viewed.
[2024-06-06] MEDS: TESSALON PERLES 200 MG PO (16:07)
--- NOTE | 2024-06-06 16:26 | PTCARENOTE ---
Patient's BP taken by tech for 1500 vitals 171/109, repeat taken by this RN 163/110. HR 70s NSR on monitor, patient stating no complaints other than occ cough, given PRN tessalon perles. Cardio made aware of BP results, stat dose of hydralazine
ordered per cardio. Midline incision dressing C/D/I, REBECCA dressing in place.
[2024-06-06] MEDS: APRESOLINE 25 MG PO ×2 (16:45→20:29)
[2024-06-06] MEDS: TUMS CHEWABLE TABLET 200 MG PO (20:40)
[2024-06-06] MEDS: AUGMENTIN 875 MG/125 MG 1 TABLET PO (21:16)
[2024-06-06] MEDS: ELIQUIS 5 MG PO (21:16)
[2024-06-07] VITALS (9 sets, daily range): BP systolic 148–182; BP diastolic 99–118; PULSE 71; O2SAT 98
[2024-06-07 06:45] LABS: Hematocrit 42.1 % (39.0-52.0); Hemoglobin 14.6 g/dL (13.0-18.0); Mean Corp Hgb Conc. 34.7 g/dL (33.0-37.0); Mean Corpuscular Hgb 29.3 pg (27.0-31.0); Mean Corpuscular Volume 84.5 fL (80.0-94.0); Platelet Count 231 10^3/uL (130-400); Red Blood Cell Count 4.98 10^6/uL (4.70-6.10); Red Cell Dist. Width 13.1 % (11.5-14.5); White Blood Cell Count 15.4 10^3/uL (4.8-10.8)
[2024-06-07 06:50] LABS: Blood Urea Nitrogen 21 mg/dl (9-20); Calcium 8.1 mg/dl (8.4-10.2); Carbon Dioxide 27 mmol/L (22-30); Chloride 102 mmol/L (98-107); Estimated Creatinine Clearance 109 ml/min; Glucose 88 mg/dl (70-99); Potassium 3.7 mmol/L (3.5-5.1); Sodium 134 mmol/L (135-145); eGFR > 60.00
--- NOTE | 2024-06-07 07:21 | W.PN.GS2 ---
Today's Communication / Plan
-
`
Assessment / Plan
-
53-year-old male presenting with septic shock, A-fib with RVR and CONSTANCE in the setting of a large chronically incarcerated umbilical hernia without strangulation but with open dermal ulceration and wounds and surrounding cellulitis as well as
Streptococcus bacteremia. Open skin wound over umbilical hernia with polymicrobial growth. UA dirty but culture negative for growth, herron placed for retention.
POD #4 open UHR with Phasix mesh. Necrotic dermis and associated subcutaneous tissue/hernia sac excised and discarded, REBECCA drain in place
AFVSS
WBC at 15 after initial post op improvement - no surgical site tenderness, erythema, induration or seromas detectable
h/h stable
Tolerating fulls but without much PO intake, hiccups today
Plan: regular diet as tolerated
REBECCA dressing typically remains in place for 7 days post op
-okay to show over dressing with it in place
ABX per ID
OOB/Ambulate, increase activity. Pt/Ot consulted
therapeutic AC started
Subjective Data
-
Date of Service: June 07, 2024
pt seen and examined
offers no complaints
minimal post op pain
denies significant abdominal or incisional pains
Objective Data
-
Intake and Output
06/06/24 06/07/24 06/08/24
06:59 06:59 06:59
Intake Total 1680 / 1680 2039
Output Total 3025 / 3025 540 / 540
Balance -1345 / -1345 1500 / 1500
Intake:
Oral fluids 1280 / 1280 2039
IV piggybacks 400 / 400
Output:
Urine, [place] 3025 / 3025
Urine, Voided 540 / 540
Other:
Number of approximated MODERATE 3
amounts of urine
Vital Signs
Temp Pulse Resp BP Pulse Ox
98.0 F 71 15 158/108 95
06/07/24 03:12 06/07/24 03:12 06/07/24 03:12 06/07/24 03:15 06/07/24 03:12
Lab Results
06/07/24 05:56
06/07/24 05:56
Calcium 8.1 mg/dl (8.4-10.2) L 06/07/24 05:56
Phosphorus 3.1 mg/dl (2.5-4.5) 06/03/24 05:33
Magnesium 2.0 mg/dl (1.6-2.3) 06/03/24 05:33
Total Bilirubin 1.2 mg/dl (0.2-1.3) 06/06/24 06:17
AST 35 U/L (17-59) 06/06/24 06:17
ALT 65 U/L (0-50) H 06/06/24 06:17
Alkaline Phosphatase 84 U/L (38-126) 06/06/24 06:17
Total Protein 5.8 g/dl (6.3-8.2) L 06/06/24 06:17
Albumin 2.7 g/dl (3.5-5.0) L 06/06/24 06:17
Physical Exam
-
NAD AAOx3
ABD: soft, ND, NTTP
incision with REBECCA dressing - clean and no surrounding erythema
--- NOTE | 2024-06-07 09:15 | CM ---
Addendum entered by Kimberly Bonner 06/07/24 16:55:
Referrals sent to [facility] as well as [facility]
Discussed with patient and parents.
PLAN: Home, with VN once have accepting agency
Addendum entered by Kimberly Bonner 06/07/24 13:52:
Call received from Marybeth at [facility] cannot accept patient d/t staffing.
Will send additional referral
Original Note:
CAll from Rosa Elena at [facility] who stated they cannot accept the patient do not accept his insurance.
Referral entered in [facility] for [facility]. Will await response.
PLAN: Home with VN, once agency accepts
[2024-06-07] MEDS: APRESOLINE 25 MG PO (09:25)
[2024-06-07] MEDS: ZESTRIL 40 MG PO (09:26)
[2024-06-07] MEDS: AUGMENTIN 875 MG/125 MG 1 TABLET PO ×2 (09:26→21:00)
[2024-06-07] MEDS: COREG 25 MG PO ×2 (09:26→21:00)
[2024-06-07] MEDS: ELIQUIS 5 MG PO ×2 (09:26→21:01)
--- NOTE | 2024-06-07 09:49 | W.PN.CD ---
Today's Communication / Plan
-
- Change Lisinopril to 20 mg BID
- Hydralazine to 50 mg BID
- Continue Coreg 25 mg BID and Eliquis 5 mg BID.
Impression / Plan
-
Impression/Plan: 53 y/o male with HTN and obesity, known umbilical hernia with associated skin breakdown admitted with septic shock and streptococcus pyogenes bacteremia associated with the overlying hernia skin breakdown, complicated by atrial
fibrillation with rapid ventricular response and mild cardiomyopathy, now back in NSR and s/p hernia repair (06/03).
#Septic shock/Streptococcus pyogenes bacteremia
-improved with antibiotics and hernia repair (06/03)
-abx as per ID and primary team.
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
-New diagnosis. Echo shows LVEF 45% without regional wall motion abnormalities. No angina or evidence of congestive heart failure.
-Suspect this is due to his acute presentation and LV suppression from septic shock and atrial fibrillation, though other causes of SUPERVISOR ROLLING ROOM exist. (suspected NICM)
-cont coreg 25mg bid
-Increase lisinopril to 20mg BID
-Repeat echocardiogram in 3 months. If LVEF is still depressed, we will reconsider ischemic evaluation and additional GDMT.
#AFIB with RVR, resolved:
-Acute, paroxysmal in the setting of acute illness. Normal TSH.
-Initially on IV amiodarone due to hypotension. Now on beta obdulia and hypertensive.
-[id number] score = 1 (HTN).
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 If recurrence of AF noted, then needs cardioversion or ablation.
#HTN:
-Chronic, hypotensive on presentation, now recovering.
-titrating meds as above
#CONSTANCE:
-Improving. May have CKD at baseline, unknown stage
-Creatinine was up to 6.7, now down to 1.4.
DATA:
CT Abdomen, 06/01/2024:
IMPRESSION:
1. Redemonstration of umbilical hernia with abdominal wall defect measuring approximately 4.2 x 3.5 cm, similar to prior. The hernia now contains only fat whereas previously it contained a loop of transverse colon. There is marked skin thickening
overlying the hernia sac, new from prior.
2. Bilateral perinephric edema, nonspecific. Evaluation for upper urinary tract infection limited without contrast.
Transthoracic echocardiogram, 06/02/2024:
CONCLUSIONS
Contrast was used. Rhythm is A fib with RVR.
Mildly reduced left ventricular systolic function. Left ventricular ejection
fraction is 45%.
Normal right ventricular size and function.
No significant valve disease.
Mildly dilated aortic root. Sinus of Valsalva measures 4.3 cm. , sinotubular
junction measures 3.8 cm. , and ascending aorta measures 3.9 cm.
No prior study available for comparison.
Physical Exam
Vital Signs/Labs
Vital Signs
Temp Pulse Resp BP Pulse Ox
98.3 F 73 18 160/118 96
06/07/24 07:55 06/07/24 09:25 06/07/24 07:55 06/07/24 09:25 06/07/24 07:55
06/06/24 06/07/24 06/08/24
06:59 06:59 06:59
Actual Weight 139.888 kg
06/07/24 05:56
06/07/24 05:56
PT 17.3 Sec (11.4-14.6) H 06/01/24 03:30
INR 1.39 06/01/24 03:30
APTT 33.4 Sec (23.4-35.0) 06/01/24 03:30
Magnesium 2.0 mg/dl (1.6-2.3) 06/03/24 05:33
Physical Exam
Constitutional: No acute distress and Comfortable
EENT: Anicteric and Moist mucous membranes
Cardiovascular: Rhythm & rate is regular, Pedal edema is absent and Systolic murmur present
Respiratory: Respiratory effort normal, Lungs clear to auscul. and Crackles Absent
GI: Soft, Non tender and Normal bowel sounds
Neuro/Psych: Alert, Oriented and AO x 3
Data Reviewed
-
Date of Service: June 07, 2024
Medical Decision Making: Reviewed Test Results, Test Interpretation and Review of Case with other Provider
EKG: Tracing Personally Visualized and interpreted
Echo: Report Reviewed by me
Labs: Labs Reviewed by me
Old Records: Reviewed
[2024-06-07] MEDS: APRESOLINE 50 MG PO ×2 (11:08→20:59)
--- NOTE | 2024-06-07 11:31 | W.PN.HOSP.TC ---
Today's Communication/Plan
-
CXR for leukocytosis, cough - continue Augmentin
check UA for completeness
no fevers, if febrile - check blood cultures too
GS evaluated post-operative site - no concern of infection
Add Hydralazine BID for DBP >100s - d/w Cardiology
Assessment / Plan
Assessment / Plan
Assessment:
Septic shock
- pressors were weaned off 06/02 AM
Cellulitis with dermal gangrene of inferior portion of umbilical hernia
Strep pyogenes bacteremia
- wound culture with MSSA, E. Coli, Enterobacter cloacae, strep pyogenes
- repeat blood cultures no growth to date
- ID following; continue Abx as Augmentin, day 11/17 total. Noted elevated WBC 3/4 but no fevers
- s/p Clindamycin course
Cough
- prn Tessalon
- check CXR
CONSTANCE, likely pre-renal from septic shock
Associated acute metabolic acidosis/lactic acidosis
- Cr 1.2
New onset parox Rapid A.fib
- TSH normal
- Echo: Mildly reduced left ventricular systolic function. Left ventricular ejection fraction is 45%. Normal right ventricular size and function. No significant valve disease. Mildly dilated aortic root. Sinus of Valsalva measures 4.3 cm.
sinotubular junction measures 3.8 cm. and ascending aorta measures 3.9 cm.
- s/p IV Amiodarone.
- continue Coreg 25mg BID
- continue Eliquis 5mg BID
- Cardiology following
Umbilical hernia
- CT: Re-demonstration of umbilical hernia with abdominal wall defect measuring approximately 4.2 x 3.5 cm, similar to prior. The hernia now contains only fat whereas previously it contained a loop of transverse colon. There is marked skin
thickening overlying the hernia sac, new from prior.
- s/p Open umbilical hernia pair with mesh; 6 cm maximal length 06/03
- diet: regular diet
- REBECCA dressing/drain in place
- follow GS recs
Iatrogenic volume overload in setting of IVF
- consider IV diuretic prn doses
Acute hyponatremia
Acute hypokalemia
- monitor BMP. replete K as needed
Acute hypocalcemia
- corrected Ca normal with low albumin
Morbid obesity d/t excess calories
- weight loss encouraged
Essential HTN
- continue lisinopril 40mg daily, continue Coreg 25mg BID - remains uncontrolled with diastolic BPs in 100s. Cardiology added Hydralazine BID - monitor BPs
- monitor BPs
acute thrombocytopenia
- likely in setting of sepsis; resolved
bilateral upper extremity edema in setting of IVF
- US: Right cephalic vein thrombus (superficial venous system). No evidence of deep venous thrombosis of the right upper extremity.
- continue Eliquis 5mg BID
DVT ppx: Eliquis
Code: Full
Anticipated Discharge: 24 - 48 hours
Subjective/Interval History
-
Date of Service: June 07, 2024
denies any complaints at present
Objective Data
-
Labs:
Laboratory Results
06/07/24
05:56
WBC 15.4 H
Hgb 14.6
Hct 42.1
Plt Count 231
Sodium 134 L
Potassium 3.7
Chloride 102
Carbon Dioxide 27
BUN 21 H
Creatinine 1.2
Glucose 88
Calcium 8.1 L
Vital Signs:
Vital Signs
Temp Pulse Resp BP Pulse Ox
98.3 F 68 18 152/104 96
06/07/24 07:55 06/07/24 11:08 06/07/24 07:55 06/07/24 11:08 06/07/24 09:00
I&O
06/06/24 06/07/24 06/08/24
06:59 06:59 06:59
Intake Total 1680 / 1680 2039
Output Total 3025 / 3025 540 / 540
Balance -1345 / -1345 1500 / 1500
Physical Exam
-
General: No Apparent Distress
HEENT: Normocephalic and Atraumatic
Respiratory: Negative Wheezes
Cardiac: Regular Rhythm and S1/S2
GI: Soft
Genito-urinary: No Costovertebral Tender
Neuro: AO x 3
Psych: Calm
Data Reviewed
-
Total Time Spent with Patient (in minutes): 41
Labs: Labs Reviewed by me
--- NOTE | 2024-06-07 13:18 | W.PN.ID1 ---
Date of Service
Date of Service: June 07, 2024
Today's Communication
Continue Augmentin.
Assessment / Plan
Clinical sepsis; resolved
Hypotension; resolved.
Leukocytosis
Bacteremia (Streptococcus pyogenes)
SSTI with dermal gangrene of inferior portion of umbilical hernia
Acute renal failure
Elevated bilirubin
-Suspect secondary to underlying sepsis
Mild transaminitis
HTN
Morbid obesity
Umbilical hernia
Fatty liver disease
Recommendations:
Prior blood cultures with Streptococcus pyogenes. Repeat blood cultures without growth.
Narrow antibiotics to Augmentin 875 mg p.o. twice daily
Trend white count and temperature curve.
White count noted to be, but no immediately evident infectious process. Continue to trend.
����������������������������������������������������������
Chief Complaint
-: Clinical Sepsis, Cellulitis and Bacteremia
Subjective / Review of Systems
Review of Systems: No Fever, No Chills and No Abdominal Pain
Vital Signs / Physical Exam
Vital Signs
Vital Signs
Temp Pulse Resp BP Pulse Ox
98.6 F 70 18 152/104 98
06/07/24 11:44 06/07/24 11:44 06/07/24 11:44 06/07/24 11:44 06/07/24 11:44
Physical Exam
Constitutional: No Acute Distress, Comfortable and Non-toxic
Eyes: Sclera Anicteric
Cardiovascular: S1/S2; Negative S3/S4
Pulmonary: Non Labored
Gastrointestinal: Soft, Distended, Normal Bowel Sounds, No Rebound and Other (Abdominal incision dressed with gary VAC. No periwound erythema)
Skin: Negative Rash or Jaundice
Neurological: Awake and Alert
Psychological: Calm
Objective Data
Lab Data
Lab Results
06/07/24 05:56
06/07/24 05:56
PT 17.3 Sec (11.4-14.6) H 06/01/24 03:30
INR 1.39 06/01/24 03:30
APTT 33.4 Sec (23.4-35.0) 06/01/24 03:30
Estimated Creat Clear 109 ml/min 06/07/24 05:56
Lactic Acid 1.7 mmol/L (0.7-2.0) 05/31/24 18:23
Total Bilirubin 1.2 mg/dl (0.2-1.3) 06/06/24 06:17
AST 35 U/L (17-59) 06/06/24 06:17
ALT 65 U/L (0-50) H 06/06/24 06:17
Alkaline Phosphatase 84 U/L (38-126) 06/06/24 06:17
Most recent labs reviewed.
Micro Results:
06/02/24 10:14 Blood Culture - Final
Blood/Venous No Growth - Final Report
05/31/24 14:45 Blood Culture - Final
Blood/Venous No Growth - Final Report
05/31/24 14:45 Blood Culture - Preliminary
Blood/Venous Streptococcus pyogenes
Gram Stain - Preliminary
05/31/24 15:03 Wound Culture - Final
Abdomen S aureus-Methicillin Sensitive
Escherichia coli
Enterobacter cloacae
Streptococcus pyogenes
Gram Stain - Final
05/31/24 21:04 MRSA Screen - Final
Nose No Methicillin Resistant Staphylococcus aureus isolated.
05/31/24 14:45 Urine Culture - Final
Urine NO GROWTH
Imaging:
06/01/2024 CXR (portable): Low lung volumes noted. No consolidation, effusion or pneumothorax noted. No acute osseous abnormality seen.
05/31/2024 CT abdomen/pelvis without contrast: Redemonstration of umbilical hernia with an abdominal wall defect measuring approximately 4.2 x 3.5 cm. Hernia now contains only fat whereas previously it contained a loop of transverse colon. There is
marked skin thickening overlying the hernia sac, new from prior exam. There is bilateral perinephric edema which is nonspecific. Evaluation for upper tract disease is limited without contrast. Please see full dictation for additional detail.
Film personally viewed.
[2024-06-07 17:33] LABS: Urine Albumin 1+ (Neg - Trace); Urine Bilirubin Negative (Negative); Urine Character Clear (Clear); Urine Color Yellow; Urine Glucose Negative (Negative); Urine Ketone Negative (Negative); Urine Leukocyte Negative (Negative); Urine Nitrite Negative (Negative); Urine Occult Blood Negative (Negative); Urine Specific Gravity 1.015 (<1.030); Urine Urobilinogen Negative (Neg - 1+); Urine pH 6.5 (5.0-9.0)
[2024-06-07 18:19] LABS: Urine Hyaline Cast 0-2 /LPF (0-2); Urine Red Blood Cell 0-2 /HPF (0-2)
[2024-06-07 18:20] LABS: Urine Bacteria Few (Negative)
[2024-06-07] MEDS: ZESTRIL 20 MG PO (21:01)
[2024-06-08 03:01] VITALS: BP 160/100
[2024-06-08 04:07] VITALS: BP 138/98
--- NOTE | 2024-06-08 07:32 | W.PN.GS2 ---
Today's Communication / Plan
-
`
Assessment / Plan
-
53-year-old male presenting with septic shock, A-fib with RVR and CONSTANCE in the setting of a large chronically incarcerated umbilical hernia without strangulation but with open dermal ulceration and wounds and surrounding cellulitis as well as
Streptococcus bacteremia. Open skin wound over umbilical hernia with polymicrobial growth. UA dirty but culture negative for growth, herron placed for retention.
POD #4 open UHR with Phasix mesh. Necrotic dermis and associated subcutaneous tissue/hernia sac excised and discarded
AFVSS
WBC pending this AM
dressing removed out of caution with WBC elevation to check surgical site- no signs/symptoms of SSI - steri strips placed and left incision open to air
Plan: regular diet as tolerated
okay to shower
ABX per ID
OOB/Ambulate, increase activity. Pt/Ot consulted
therapeutic AC started
okay for d/c from surgical standpoint, follow up in 2-3 weeks
Subjective Data
-
Date of Service: June 08, 2024
pt seen and examined
feels well
sera PO
minimal post op pain, denies significant abdominal or incisional pains
Objective Data
-
Intake and Output
06/07/24 06/08/24 06/09/24
06:59 06:59 06:59
Intake Total 2039
Output Total 540 / 540
Balance 1500 / 1500 2159
Intake:
Oral fluids 2039
Output:
Urine, Voided 540 / 540
Other:
Number of approximated MODERATE 3 3
amounts of urine
Vital Signs
Temp Pulse Resp BP Pulse Ox
97.5 F 74 18 138/98 96
06/08/24 03:01 06/08/24 03:01 06/08/24 03:01 06/08/24 04:07 06/08/24 03:01
Calcium 8.1 mg/dl (8.4-10.2) L 06/07/24 05:56
Phosphorus 3.1 mg/dl (2.5-4.5) 06/03/24 05:33
Magnesium 2.0 mg/dl (1.6-2.3) 06/03/24 05:33
Total Bilirubin 1.2 mg/dl (0.2-1.3) 06/06/24 06:17
AST 35 U/L (17-59) 06/06/24 06:17
ALT 65 U/L (0-50) H 06/06/24 06:17
Alkaline Phosphatase 84 U/L (38-126) 06/06/24 06:17
Total Protein 5.8 g/dl (6.3-8.2) L 06/06/24 06:17
Albumin 2.7 g/dl (3.5-5.0) L 06/06/24 06:17
Physical Exam
-
NAD AAOx3
ABD: soft, ND, NTTP
dressing removed
incision well approximated, no erythema, no drainage, no induration, no seromas - steri strips applied
[2024-06-08 07:40] VITALS: BP 150/100
--- NOTE | 2024-06-08 07:48 | W.PN.CD ---
Today's Communication / Plan
-
-On Lisinopril, Coreg, Hydralazine - BP improved but still uncontrolled.
-Will add HCTZ 25 mg QD.
-Can be discharged today with outpatient follow up.
Impression / Plan
-
Impression/Plan: 53 y/o male with HTN and obesity, known umbilical hernia with associated skin breakdown admitted with septic shock and streptococcus pyogenes bacteremia associated with the overlying hernia skin breakdown, complicated by atrial
fibrillation with rapid ventricular response and mild cardiomyopathy, now back in NSR and s/p hernia repair (06/03).
#HTN:
-Resistant hypertension
-On Lisinopril, Coreg, Hydralazine and still uncontrolled.
-Will add HCTZ 25 mg QD.
-Chronic, hypotensive on presentation, now hypertensive.
-titrating meds as above
-Follow up in cardiology in 1-2 weeks for further titration.
#Septic shock/Streptococcus pyogenes bacteremia
-Resolved.
-improved with antibiotics and hernia repair (06/03)
-abx as per ID and primary team.
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
-New diagnosis. Echo shows LVEF 45% without regional wall motion abnormalities. No angina or evidence of congestive heart failure.
-Suspect this is due to his acute presentation and LV suppression from septic shock and atrial fibrillation, though other causes of GAS OR WATER METER INSTALLER exist. (suspected NICM)
-cont coreg 25mg bid
-On lisinopril to 20mg BID
-Repeat echocardiogram in 3 months. If LVEF is still depressed, we will reconsider ischemic evaluation and additional GDMT.
#AFIB with RVR, resolved:
-Acute, paroxysmal in the setting of acute illness. Normal TSH.
-Initially on IV amiodarone due to hypotension. Now on beta obdulia and hypertensive.
-[id number] score = 1 (HTN).
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 If recurrence of AF noted, then needs cardioversion or ablation.
#CONSTANCE:
-Improving. May have CKD at baseline, unknown stage
-Creatinine was up to 6.7, now down to 1.4. pending today,
DATA:
CT Abdomen, 06/01/2024:
IMPRESSION:
1. Redemonstration of umbilical hernia with abdominal wall defect measuring approximately 4.2 x 3.5 cm, similar to prior. The hernia now contains only fat whereas previously it contained a loop of transverse colon. There is marked skin thickening
overlying the hernia sac, new from prior.
2. Bilateral perinephric edema, nonspecific. Evaluation for upper urinary tract infection limited without contrast.
Transthoracic echocardiogram, 06/02/2024:
CONCLUSIONS
Contrast was used. Rhythm is A fib with RVR.
Mildly reduced left ventricular systolic function. Left ventricular ejection
fraction is 45%.
Normal right ventricular size and function.
No significant valve disease.
Mildly dilated aortic root. Sinus of Valsalva measures 4.3 cm. , sinotubular
junction measures 3.8 cm. , and ascending aorta measures 3.9 cm.
No prior study available for comparison.
Physical Exam
Vital Signs/Labs
Vital Signs
Temp Pulse Resp BP Pulse Ox
97.5 F 74 18 138/98 96
06/08/24 03:01 06/08/24 03:01 06/08/24 03:01 06/08/24 04:07 06/08/24 03:01
PT 17.3 Sec (11.4-14.6) H 06/01/24 03:30
INR 1.39 06/01/24 03:30
APTT 33.4 Sec (23.4-35.0) 06/01/24 03:30
Magnesium 2.0 mg/dl (1.6-2.3) 06/03/24 05:33
Physical Exam
Constitutional: No acute distress and Comfortable
EENT: Anicteric and Moist mucous membranes
Cardiovascular: Rhythm & rate is regular, Pedal edema is absent, Systolic murmur absent and JVD present
Respiratory: Respiratory effort normal, Lungs clear to auscul. and Wheeze Absent
GI: Soft, Distention absent and Non tender
Neuro/Psych: Alert, Oriented and AO x 3
Data Reviewed
-
Date of Service: June 08, 2024
Medical Decision Making: Reviewed Test Results, Test Interpretation and Review of Case with other Provider
EKG: Tracing Personally Visualized and interpreted
Echo: Report Reviewed by me
Labs: Labs Reviewed by me
Old Records: Reviewed
[2024-06-08] MEDS: AUGMENTIN 875 MG/125 MG 1 TABLET PO (08:08)
[2024-06-08] MEDS: ZESTRIL 20 MG PO (08:08)
[2024-06-08] MEDS: APRESOLINE 50 MG PO (08:08)
[2024-06-08] MEDS: COREG 25 MG PO (08:09)
[2024-06-08] MEDS: ELIQUIS 5 MG PO (08:09)
[2024-06-08 08:21] LABS: Hematocrit 43.9 % (39.0-52.0); Hemoglobin 15.6 g/dL (13.0-18.0); Mean Corp Hgb Conc. 35.5 g/dL (33.0-37.0); Mean Corpuscular Hgb 29.8 pg (27.0-31.0); Mean Corpuscular Volume 83.8 fL (80.0-94.0); Mean Platelet Volume 9.8 fL (7.4-10.4); Platelet Count 246 10^3/uL (130-400); Red Blood Cell Count 5.24 10^6/uL (4.70-6.10); Red Cell Dist. Width 13.3 % (11.5-14.5); White Blood Cell Count 15.4 10^3/uL (4.8-10.8)
[2024-06-08 08:45] LABS: Absolute Neutrophils -Man Diff 11.3 10^3/uL (1.4-6.5); Band Neutrophils 1 % (0-3); Eosinophils 1 % (0-6); Lymphocytes 19 % (20-51); Metamyelocytes 4 % (-); Monocytes 2 % (2-9); Normal RBC Morphology Yes; Platelets Checked Yes; Segmented Neutrophils 73 % (42-75); Total Cells Counted 100
[2024-06-08 09:12] LABS: Blood Urea Nitrogen 17 mg/dl (9-20); Calcium 8.3 mg/dl (8.4-10.2); Carbon Dioxide 27 mmol/L (22-30); Chloride 103 mmol/L (98-107); Estimated Creatinine Clearance 109 ml/min; Glucose 93 mg/dl (70-99); Potassium 3.8 mmol/L (3.5-5.1); Sodium 135 mmol/L (135-145); eGFR > 60.00
[2024-06-08] MEDS: ORETIC 25 MG PO (10:13)
--- NOTE | 2024-06-08 10:33 | W.PN.HOSP.TC ---
Today's Communication/Plan
-
Monitor vital signs see plan
Discharge today
Continue with cardiac meds
Discussed with infectious disease, will treat for another 7 days of antibiotics
Time of discharge 38 minutes
Assessment / Plan
Assessment / Plan
Assessment:
Septic shock
- pressors were weaned off 06/02 AM
Cellulitis with dermal gangrene of inferior portion of umbilical hernia
Strep pyogenes bacteremia
- wound culture with MSSA, E. Coli, Enterobacter cloacae, strep pyogenes
- repeat blood cultures no growth to date
- ID following; continue Abx as Augmentin, Discussed with infectious disease. Will discharge on 7 more days of antibiotics. Noted elevated WBC 3/4 but no fevers. CBC next week with primary care provider. Discussed with infectious disease
- s/p Clindamycin course
Cough
- prn Tessalon
CXR with
CONSTANCE, likely pre-renal from septic shock
Associated acute metabolic acidosis/lactic acidosis
- Cr 1.2
New onset parox Rapid A.fib
- TSH normal
- Echo: Mildly reduced left ventricular systolic function. Left ventricular ejection fraction is 45%. Normal right ventricular size and function. No significant valve disease. Mildly dilated aortic root. Sinus of Valsalva measures 4.3 cm.
sinotubular junction measures 3.8 cm. and ascending aorta measures 3.9 cm.
- s/p IV Amiodarone.
- continue Coreg 25mg BID
- continue Eliquis 5mg BID
- Cardiology following
Umbilical hernia
- CT: Re-demonstration of umbilical hernia with abdominal wall defect measuring approximately 4.2 x 3.5 cm, similar to prior. The hernia now contains only fat whereas previously it contained a loop of transverse colon. There is marked skin
thickening overlying the hernia sac, new from prior.
- s/p Open umbilical hernia pair with mesh; 6 cm maximal length 06/03
- diet: regular diet
- REBECCA dressing/drain in place
- follow GS recs
Iatrogenic volume overload in setting of IVF
- consider IV diuretic prn doses
Acute hyponatremia
Acute hypokalemia
- monitor BMP. replete K as needed
Acute hypocalcemia
- corrected Ca normal with low albumin
Morbid obesity d/t excess calories
- weight loss encouraged
Essential HTN
- continue lisinopril 40mg daily, continue Coreg 25mg BID - remains uncontrolled with diastolic BPs in 100s. Cardiology added Hydralazine BID - monitor BPs
- monitor BPs
Added hydrochlorothiazide
acute thrombocytopenia
- likely in setting of sepsis; resolved
bilateral upper extremity edema in setting of IVF
- US: Right cephalic vein thrombus (superficial venous system). No evidence of deep venous thrombosis of the right upper extremity.
- continue Eliquis 5mg BID
DVT ppx: Eliquis
Code: Full
General: No Apparent Distress
HEENT: Normocephalic and Atraumatic
Respiratory: Negative Wheezes
Cardiac: Regular Rhythm and S1/S2
GI: Soft
Genito-urinary: No Costovertebral Tender
Neuro: AO x 3
Psych: Calm
Anticipated Discharge: Today
Subjective/Interval History
-
Date of Service: June 08, 2024
denies pain
Objective Data
-
Labs:
Laboratory Results
06/08/24
07:57
WBC 15.4 H
Hgb 15.6
Hct 43.9
Plt Count 246
Sodium 135
Potassium 3.8
Chloride 103
Carbon Dioxide 27
BUN 17
Creatinine 1.2
Glucose 93
Calcium 8.3 L
Vital Signs:
Vital Signs
Temp Pulse Resp BP Pulse Ox
98.2 F 78 16 140/90 95
06/08/24 07:40 06/08/24 10:13 06/08/24 07:40 06/08/24 10:13 06/08/24 07:40
I&O
06/07/24 06/08/24 06/09/24
06:59 06:59 06:59
Intake Total 2039
Output Total 540 / 540
Balance 1500 / 1500 2159
--- NOTE | 2024-06-08 10:43 | W.DCSUMMARY ---
Discharge Summary
Discharge Data
Date of Admission: 05/31/24
Date of Discharge: 06/08/24
-
Pending Results: No
Hospital Course
53-year-old male with past medical history of umbilical hernia, essential hypertension came to the hospital with septic shock secondary to cellulitis with dermal gangrene of inferior portion of umbilical hernia. Patient was seen by surgery and was
taken to the OR. Patient blood culture was also positive for Streptococcus for which he was seen by infectious disease. Initially he was on IV antibiotics were later transitioned to oral antibiotics prior to discharge. On this hospitalization he
also developed new onset atrial fibrillation. EF showed mildly reduced ejection fraction of 45%. Patient was seen by cardiology throughout hospitalization and was started on medications for A-fib. For anticoagulation he was started on Eliquis.
His blood pressure was uncontrolled and was started on multiple blood pressure medications. Once patient symptoms continue to improve, he was then discharged home with instructions to follow-up with all his physicians outpatient.
Discharge Plan
-
Patient Disposition: Home with Home Care
Discharge Diagnosis/Procedures: Umbilical hernia s/p repair 06/03 with cellulitis on antibiotics. New A. Fib on rate control and blood thinners, CONSTANCE, Streptococcus bacteremia
Condition: Fair
Diet: Regular
Activity: No strenuous activity
Additional Activity: Do not lift over 15lbs for the next 6 weeks
Bathing Restrictions: OK to Shower
Blood Work: cbc next week with pcp
Other Services: VN
Wound Care: Steri strips typically peel off in 2-3 weeks. Leave incision open to air or cover with dry gauze dressing if desired.
Activity Restrictions/Additional Instructions:
Follow-up with your primary care provider next week
Referrals:
Rylan More MD [Active] - in one month
Fortunato Tello MD [Active] - in two to four weeks
Prescriptions:
New
hydralazine 50 mg Tablet
50 mg PO BID Qty: 60 0RF
carvedilol 25 mg Tablet
25 mg PO BID Qty: 60 0RF
amoxicillin-pot clavulanate 875-125 mg Tablet
1 tab PO Q12 Qty: 14 0RF
Eliquis 5 mg Tablet
5 mg PO BID Qty: 60 0RF
lisinopril 20 mg Tablet
20 mg PO BID Qty: 60 0RF
benzonatate 100 mg Capsule
200 mg PO TIDPRN PRN (Reason: COUGH) Qty: 30 0RF
hydrochlorothiazide 25 mg Tablet
25 mg PO DAILY Qty: 30 0RF
Discontinued
lisinopril 10 mg Tablet
10 mg PO DAILY
Discharge Orders:
Discharge Patient (As Directed); Ordered 06/08/24
Ordered By: [place] Noel
Discharge Date and Time
Discharge Date/Time: 06/08/24 13:08
Print Language: CHINESE
--- NOTE | 2024-06-08 11:14 | CM ---
Patient seen at bedside with parents
Will be staying with parents for a couple weeks
REBECCA removed-steri strips
Patient declines VN
PLAN: Home, declines VN
parents to transport
[2024-06-08 11:17] VITALS: BP 156/106
--- NOTE | 2024-06-08 11:21 | W.PN.ID1 ---
Date of Service
Date of Service: June 08, 2024
Today's Communication
Continue Augmentin.
Assessment / Plan
Clinical sepsis; resolved
Hypotension; resolved.
Leukocytosis
Bacteremia (Streptococcus pyogenes)
SSTI with dermal gangrene of inferior portion of umbilical hernia
Acute renal failure
Elevated bilirubin
-Suspect secondary to underlying sepsis
Mild transaminitis
HTN
Morbid obesity
Umbilical hernia
Fatty liver disease
Recommendations:
Continue with Augmentin for an additional 7 days.
Outpatient follow-up with PCP regarding elevated white count.
����������������������������������������������������������
Chief Complaint
-: Clinical Sepsis, Cellulitis and Bacteremia
Subjective / Review of Systems
Review of Systems: No Fever, No Chills and No Abdominal Pain
Vital Signs / Physical Exam
Vital Signs
Vital Signs
Temp Pulse Resp BP Pulse Ox
98.5 F 68 16 156/106 96
06/08/24 11:17 06/08/24 11:17 06/08/24 11:17 06/08/24 11:17 06/08/24 11:17
Physical Exam
Constitutional: No Acute Distress, Comfortable and Non-toxic
Eyes: Sclera Anicteric
Cardiovascular: S1/S2; Negative S3/S4
Pulmonary: Non Labored
Gastrointestinal: Soft, Distended, Normal Bowel Sounds, No Rebound and Other (Abdominal C/D/I with Steri-Strips. no periwound erythema)
Skin: Negative Rash or Jaundice
Neurological: Awake and Alert
Psychological: Calm
Objective Data
Lab Data
Lab Results
06/08/24 07:57
06/08/24 07:57
PT 17.3 Sec (11.4-14.6) H 06/01/24 03:30
INR 1.39 06/01/24 03:30
APTT 33.4 Sec (23.4-35.0) 06/01/24 03:30
Estimated Creat Clear 109 ml/min 06/08/24 07:57
Lactic Acid 1.7 mmol/L (0.7-2.0) 05/31/24 18:23
Total Bilirubin 1.2 mg/dl (0.2-1.3) 06/06/24 06:17
AST 35 U/L (17-59) 06/06/24 06:17
ALT 65 U/L (0-50) H 06/06/24 06:17
Alkaline Phosphatase 84 U/L (38-126) 06/06/24 06:17
Most recent labs reviewed.
Micro Results:
05/31/24 14:45 Blood Culture - Final
Blood/Venous Streptococcus pyogenes
Gram Stain - Final
06/02/24 10:14 Blood Culture - Final
Blood/Venous No Growth - Final Report
05/31/24 14:45 Blood Culture - Final
Blood/Venous No Growth - Final Report
05/31/24 15:03 Wound Culture - Final
Abdomen S aureus-Methicillin Sensitive
Escherichia coli
Enterobacter cloacae
Streptococcus pyogenes
Gram Stain - Final
05/31/24 21:04 MRSA Screen - Final
Nose No Methicillin Resistant Staphylococcus aureus isolated.
05/31/24 14:45 Urine Culture - Final
Urine NO GROWTH
Imaging:
06/01/2024 CXR (portable): Low lung volumes noted. No consolidation, effusion or pneumothorax noted. No acute osseous abnormality seen.
05/31/2024 CT abdomen/pelvis without contrast: Redemonstration of umbilical hernia with an abdominal wall defect measuring approximately 4.2 x 3.5 cm. Hernia now contains only fat whereas previously it contained a loop of transverse colon. There is
marked skin thickening overlying the hernia sac, new from prior exam. There is bilateral perinephric edema which is nonspecific. Evaluation for upper tract disease is limited without contrast. Please see full dictation for additional detail.
Film personally viewed.
Care Review
Plan reviewed with: Physician (Hospitalist)
[2024-06-08 11:55] VITALS: BP 144/80
== END 2024-06-08 13:08 | disposition home or self-care (01) | DRG 853 ==
LOC: 2 NORTH 16:33
PROVIDERS: Internal Medicine; Nurse Practitioner Family; Surgery; ADMITTING PHYSICIAN Hospitalist; ATTENDING PHYSICIAN Internal Medicine; CONSULT PHYSICIAN Internal Medicine Critical Care Medicine; CONSULT PHYSICIAN Student in an Organized Health Care Education/Training Program; CONSULT PHYSICIAN Surgery; EMERGENCY PHYSICIAN Emergency Medicine; FAMILY PHYSICIAN Student in an Organized Health Care Education/Training Program; OTHER PHYSICIAN Internal Medicine Infectious Disease; PRIMARYCARE PHYSICIAN Family Medicine
PROC: 0WUF0JZ Supplement Abdominal Wall with Synthetic Substitute, Open Approach (ICD-10-PCS; 2024-06-03)
DX: A40.9 Streptococcal sepsis, unspecified (principal); J96.00 Acute respiratory failure, unspecified whether with hypoxia or hypercapnia; K42.1 Umbilical hernia with gangrene; R65.21 Severe sepsis with septic shock; N17.9 Acute kidney failure, unspecified; E87.20 Acidosis, unspecified; E87.1 Hypo-osmolality and hyponatremia; N39.0 Urinary tract infection, site not specified; L03.316 Cellulitis of umbilicus; I48.91 Unspecified atrial fibrillation; E87.6 Hypokalemia; E66.01 Morbid (severe) obesity due to excess calories; Z68.38 Body mass index [BMI] 38.0-38.9, adult; D69.6 Thrombocytopenia, unspecified; I10 Essential (primary) hypertension; E88.09 Other disorders of plasma-protein metabolism, not elsewhere classified; K66.0 Peritoneal adhesions (postprocedural) (postinfection); K76.0 Fatty (change of) liver, not elsewhere classified; Z79.899 Other long term (current) drug therapy
CPT/HCPCS: 71045; 71046; 74176; 80048; 80053; 80202; 81003; 81015; 83605; 83735; 84100; 84132; 84443; 85025; 85027; 85610; 85730; 87040; 87070; 87077; 87086; 87147; 87186; 87205; 93005; 93306; 93970; 96365; 96366; 96367; 97116; 97163; 97167; 97530; 99285; C1781; Q9950